=== PATIENT | male | born 1965 | race Two or more races ===

== ENCOUNTER 2020-11-01 16:39 | Inpatient (IN) | payer OTHER ==
[~2020-11-01] VITALS: Ht 180.3 cm; Wt 70.3 kg
[2020-11-01] MEDS ORDERED: Morphine Sulfate 4mg/ml Inj (IV USE ONLY) IVP ONE (17:15)
[2020-11-01] MEDS ORDERED: Omnipaque-300 100ml vial INJ PRN (17:15)
[2020-11-01] MEDS ORDERED: BACLOFEN10 MG ORAL (17:36)
[2020-11-01] MEDS ORDERED: LISINOPRIL40 MG ORAL (17:44)
[2020-11-01] MEDS ORDERED: MULTIVITAMINS1 EAC2 ORAL (17:44)
[2020-11-01] MEDS ORDERED: NORMODYNE300 MG ORAL (17:44)
[2020-11-01] MEDS ORDERED: ACETAMINOPHEN325 M1 ORAL (17:44)
[2020-11-01] MEDS ORDERED: VITAMIN D325 MC1 PO (17:44)
[2020-11-01] MEDS ORDERED: DILTIAZEM HCL60 MG PO (17:44)
[2020-11-01] MEDS ORDERED: KEPPRA1000 MG ORAL (17:44)
[2020-11-01] MEDS ORDERED: DOCUSATE SODIU100 MG ORAL (17:44)
[2020-11-01] MEDS ORDERED: CRANBERRY400 MG PO (17:44)
[2020-11-01] MEDS ORDERED: SYNTHROID150 MCG ORAL (17:44)
[2020-11-01] MEDS ORDERED: SENNA8.6 M2 PO (17:44)
--- NOTE | 2020-11-01 18:06 | Emergency Room Report ---
History of Present Illness General Chief Complaint: Abdominal Pain Source: Patient, EMS Present Illness HPI 55-year-old male presents for evaluation. Brought in by EMS from half-way facility. Complaining of abdominal pain x1 day. Patient has aphasia and is unable to provide specific details. Points to his right upper abdomen. Per nursing has been complaining of pain x1 day. No reported chest pain or shortness of breath. No nausea or vomiting. No other aggravating relieving factors. Denies any other associated symptoms Allergies: Coded Allergies: No Known Allergies (Unverified , 11/01/20) COVID-19 Screening Contact w/high risk pt: No Experienced COVID-19 symptoms?: No COVID-19 Testing performed WATER TECHNICIAN: No Patient History Past Medical History: HTN, GERD, CVA/TIA, other - aphasia Pertinent Family History: none Social History: Denies: smoking, alcohol use, drug use Immunizations: UTD Reviewed Nursing Documentation: PMH: Agreed; PSxH: Agreed Nursing Documentation-PMH Past Medical History: No History, Except For Hx Hypertension: Yes Hx Gastrointestinal Problems: Yes - aphasia, gerd Hx Neurological Problems: Yes - encephalopathy Hx Cerebrovascular Accident: Yes Hx Seizures: Yes Review of Systems All Other Systems: negative except mentioned in HPI Physical Exam Vital Signs Date Time Temp Pulse Resp B/P (MAP) Pulse Ox O2 Delivery O2 Flow Rate FiO2 11/01/20 16:45 97.2 57 16 138/90 (106) 99 Room Air Sp02 EP Interpretation: reviewed, normal General Appearance: no apparent distress, alert, GCS 15, non-toxic Head: normocephalic, atraumatic Eyes: bilateral eye normal inspection, bilateral eye PERRL ENT: hearing grossly normal, normal pharynx, no angioedema, normal voice Neck: full range of motion, supple/symm/no masses Respiratory: chest non-tender, lungs clear, normal breath sounds, speaking full sentences Cardiovascular #1: regular rate, rhythm, no edema Cardiovascular #2: 2+ carotid (R), 2+ carotid (L), 2+ radial (R), 2+ radial (L), 2+ dorsalis pedis (R), 2+ dorsalis pedis (L) Gastrointestinal: normal bowel sounds, soft, non-distended, no guarding, no rebound, tenderness - RUQ Rectal: deferred Genitourinary: normal inspection, no CVA tenderness Musculoskeletal: back normal, normal range of motion, gait/station normal, non- tender Neurologic: alert, motor strength/tone normal, oriented x3, sensory intact, responsive, speech normal Psychiatric: judgement/insight normal, memory normal, mood/affect normal, no suicidal/homicidal ideation Reflexes: 3+ bicep (R), 3+ bicep (L), 3+ tricep (R), 3+ tricep (L), 3+ knee (R), 3+ knee (L) Skin: no rash Lymphatic: no adenopathy Medical Decision Making Diagnostic Impression: Primary Impression: Abdominal pain Qualified Codes: R10.11 - Right upper quadrant pain Additional Impressions: Renal insufficiency Pancreatitis Qualified Codes: K85.90 - Acute pancreatitis without necrosis or infection, unspecified ER Course Hospital Course 55-year-old male presents with abdominal pain Differential diagnoses include: BPH, cystitis, pyelonephritis, kidney stone Clinical course Patient placed on stretcher. ekg monitor. After initial history and phys ical I ordered labs, IV fluids, UA, pain meds and CT Labs - no leukocytosis, Hb/Hct stable. BUN/Cr elevated, Lipase > 500 CT abdomen and pelvis -no acute process identified Case discussed with Dr. Nolasco and he agreed to accept the patient to his serv ice for further care and support I feel this is a highly complex case requiring extensive working including EKG/Rhythm strip, Xray/CT/US, Blood/urine lab work, repeat exams while in ED, and administration of strong opiates/narcotics for pain control, admission to hospital or close patient follow up. Diagnosis - abdominal pain, renal insufficiency, pancreatitis Patient admitted to floor in serious condition Laboratory Tests Test 11/01/20 17:20 White Blood Count 7.7 K/UL (4.8-10.8) Red Blood Count 3.60 M/UL (4.70-6.10) L Hemoglobin 10.8 G/DL (14.2-18.0) L Hematocrit 31.6 % (42.0-52.0) L Mean Corpuscular Volume 88 FL (80-99) Mean Corpuscular Hemoglobin 30.0 PG (27.0-31.0) Mean Corpuscular Hemoglobin Concent 34.1 G/DL (32.0-36.0) Red Cell Distribution Width 12.8 % (11.6-14.8) Platelet Count 200 K/UL (150-450) Mean Platelet Volume 9.9 FL (6.5-10.1) Neutrophils (%) (Auto) 67.4 % (45.0-75.0) Lymphocytes (%) (Auto) 20.5 % (20.0-45.0) Monocytes (%) (Auto) 7.4 % (1.0-10.0) Eosinophils (%) (Auto) 3.9 % (0.0-3.0) H Basophils (%) (Auto) 0.9 % (0.0-2.0) Sodium Level 132 MMOL/L (136-145) L Potassium Level 4.6 MMOL/L (3.5-5.1) Chloride Level 99 MMOL/L (98-107) Carbon Dioxide Level 24 MMOL/L (21-32) Anion Gap 9 mmol/L (5-15) Blood Urea Nitrogen 37 mg/dL (7-18) H Creatinine 2.3 MG/DL (0.55-1.30) H Estimat Glomerular Filtration Rate 29.8 mL/min (>60) Glucose Level 94 MG/DL (74-106) Calcium Level 9.3 MG/DL (8.5-10.1) Total Bilirubin 0.4 MG/DL (0.2-1.0) Aspartate Amino Transf (AST/SGOT) 38 U/L (15-37) H Alanine Aminotransferase (ALT/SGPT) 77 U/L (12-78) Alkaline Phosphatase 119 U/L (46-116) H Total Protein 7.2 G/DL (6.4-8.2) Albumin 3.8 G/DL (3.4-5.0) Globulin 3.4 g/dL Albumin/Globulin Ratio 1.1 (1.0-2.7) Lipase 516 U/L (73-393) H Last Vital Signs Date Time Temp Pulse Resp B/P (MAP) Pulse Ox O2 Delivery O2 Flow Rate FiO2 11/01/20 16:45 97.2 57 16 138/90 (106) 99 Room Air Status: improved Disposition: ADMITTED INPATIENT Condition: Serious Referrals: Elias Nolasco MD (PCP) Montana Duke MD Nov 01, 2020 18:06
[2020-11-01 18:17] LABS: BASOPHILS % (AUTO) 0.9 % (0.0-2.0); EOSINOPHILS % (AUTO) 3.9 % (0.0-3.0); HEMATOCRIT 31.6 % (42.0-52.0); HEMOGLOBIN 10.8 G/DL (14.2-18.0); LYMPHOCYTES % (AUTO) 20.5 % (20.0-45.0); MEAN CORPUSCULAR VOLUME 88 FL (80-99); MONOCYTES % (AUTO) 7.4 % (1.0-10.0); NEUTROPHILS % (AUTO) 67.4 % (45.0-75.0); PLATELET COUNT 200 K/UL (150-450); RED CELL DISTRIBUTION WIDTH 12.8 % (11.6-14.8); WHITE BLOOD COUNT 7.7 K/UL (4.8-10.8)
[2020-11-01 18:18] LABS: CALCIUM 9.3 MG/DL (8.5-10.1); CREATININE 2.3 MG/DL (0.55-1.30); POTASSIUM 4.6 MMOL/L (3.5-5.1)
[2020-11-01 18:22] LABS: ALBUMIN 3.8 G/DL (3.4-5.0); ALBUMIN/GLOBULIN RATIO 1.1 (1.0-2.7); BILIRUBIN,TOTAL 0.4 MG/DL (0.2-1.0)
--- NOTE | 2020-11-01 18:30 | NUR ---
Received patient from a skilled living facility. Non-verbal S/T aphasia but French speaking from . C/O abdominal pain that radiates lateral by pointing.He is therfore unable to give a history or provide any specific details. Unable to know if there are any other aggravating factors. No nausea or vomiting noted. NKA. 20 G Peripheral IV placed to LH. Hx of HTN, GERD, CVA/TIA Presents with R-sided weakness and needs assist with ambulation and transfer. Pain medication given and tolerated. NS currently infusing.
[2020-11-01 18:39] VITALS: BP 142/87
--- NOTE | 2020-11-01 18:49 | NUR ---
Patient is off the floor for CT
--- NOTE | 2020-11-01 19:00 | NUR ---
ED Nurse Note: patient back from ct
[2020-11-01 19:18] VITALS: BP 116/57
--- NOTE | 2020-11-01 20:11 | Diagnostic Imaging Report ---
EXAM: CT Abdomen and Pelvis With Intravenous Contrast CLINICAL HISTORY: ABD PAIN TECHNIQUE: Axial computed tomography images of the abdomen and pelvis with intravenous contrast. CTDI is 8.2 mGy and DLP is 425.7 mGy-cm. One or more of the following dose reduction techniques were used: automated exposure control, adjustment of the mA and/or kV according to patient size, use of iterative reconstruction technique. COMPARISON: None. FINDINGS: Lung bases: Minimal posterior dependent atelectasis. Pleural space: Trace amount of pleural effusion versus pleural thickening. ABDOMEN: Liver: Unremarkable. No mass. Gallbladder and bile ducts: Unremarkable. No calcified stones. No ductal dilation. Pancreas: Unremarkable. No mass. No ductal dilation. Spleen: Unremarkable. No splenomegaly. Adrenals: Unremarkable. No mass. Kidneys and ureters: Small low-attenuation structures within the right kidney, some too small to characterize and measuring less than 7 mm, largest seen within the mid lower pole measuring 1.8 x 1.7 cm compatible with a simple cyst. The smaller structures are statistically consistent with cyst. Normal left kidney. Stomach and bowel: Increased fecal debris within the colon suggestive of constipation. No obstruction. No mucosal thickening. PELVIS: Appendix: Normal appendix. Bladder: Unremarkable. No mass. Reproductive: Unremarkable as visualized. ABDOMEN and PELVIS: Intraperitoneal space: Unremarkable. No free air. No significant fluid collection. Bones/joints: Mild degenerative disease of the spine. No acute fracture. No dislocation. Soft tissues: Small bilateral fat-containing inguinal hernias. Vasculature: Unremarkable. No abdominal aortic aneurysm. Lymph nodes: Unremarkable. No enlarged lymph nodes. IMPRESSION: 1. Constipation. No acute appendicitis or bowel obstruction. 2. Nonspecific small bilateral renal cysts. If indicated, this can be further confirmed with ultrasound of the kidneys the nonacute setting.
--- NOTE | 2020-11-01 22:00 | NUR ---
HAND-OFF: Report given to Racheal LEAL .
--- NOTE | 2020-11-01 22:16 | NUR ---
ED Nurse Note: Swabs collected and sent to lab patient refused anal swab
[2020-11-01 22:33] VITALS: BP 142/87
[2020-11-02] MEDS ORDERED: D5 1/2NS 1,000 ML IV SCH
[2020-11-02 00:04] VITALS: BP 166/98
--- NOTE | 2020-11-02 02:29 | History and Physical Report ---
DATE OF ADMISSION: 11/01/2020 This is one of several admissions to [facility] of this 55-year-old patient because of patient because of acute pancreatitis. HISTORY OF PRESENT ILLNESS: The patient is a resident of an extended care facility where he has been in that facility for several years. He is known to have several chronic medical syndrome that will be detailed in the following paragraphs, but has been stable on his current medication. In fact, the patient's condition in particular motor mobility has markedly improved over the last several months. Today, he developed a sudden in onset of right upper quadrant pain. The pain was intense, did not respond to normal analgesic. He was in the extended care facility. By the same time, there was no nausea, vomiting, or diarrhea and there was no shortness of breath, chest pain, or palpitation. The pain was described as persistent pressure, not intense. He was transferred to [facility] ER. He was found to have elevated lipase to 500 and elevated BUN and creatinine. As compared to his previous admission, BUN and creatinine were normal and the patient was admitted. PAST MEDICAL HISTORY: 4 years ago, the patient had intracerebral hemorrhage, for which he underwent craniotomy and NUT CULLER shunt insertion. Two years later, he underwent cranioplasty. The patient has seizure disorder since his surgery and significant hypothyroid, high blood pressure, hyperlipidemia, hypovitaminosis D, and mood disorder. ALLERGIES: No known drug allergy. MEDICATIONS: The patient is on levetiracetam 1000 mg daily, levothyroxine 200 mcg daily, atorvastatin 10 mg daily, vitamin D 5000 units daily, aspirin 81 mg daily. FAMILY HISTORY: Noncontributory. SOCIAL HISTORY: He is single. He has 2 children that he has not seen now for several years. He was born in [place] and in [place] for many years prior to the appearance of his total disability. He worked at odd jobs. HABITS: The patient did not smoke, drink, or use illicit drugs. REVIEW OF SYSTEMS: The patient denied any chest pain, shortness of breath, palpitations, or dizziness. PULMONARY: The patient denied any cough, cough, wheezing, or expectoration. GASTROINTESTINAL: His appetite prior to this event was normal. His weight is stable. He has no dysphagia. No dyspepsia. No bowel movement disorder. GENITOURINARY: The patient denied any dysuria, frequency, incontinence, or nocturia. JOINTS: The patient denied any pain, swelling, stiffness, cold extremities, photosensitivity, dry eyes, or alopecia. CENTRAL NERVOUS SYSTEM: His sleep is of good quality. He has no numbness, tingling, seizure disorder, and has no headaches. There is a need to mention that the patient is completely aphasic and all his answers are done by head nod. The patient has limited understanding of Estonian and the use of bilingual behavioral health assistant is required. PHYSICAL EXAMINATION: VITAL SIGNS: His blood pressure is 142/87, his pulse is 80, respirations are 22, temperature 98.4. HEENT: Eyes were normal. Pupils were round, equal, and reactive to light. Sclerae was white. Conjunctiva was pink. Extraocular movements were normal. Temporal arteries were palpable bilaterally. There was some bilateral temporal wasting. Visual de león to confrontation, neglect sign could not be assessed. ENT, mucous membranes were not dehydrated. Auditory canals were clear and tympanic membranes could not be visualized. Nasal cavity was not congested. Nasal septum was intact. Soft palate was free of ulcerations. Pharynx was clear from exudate and tonsillar hypertrophy. Uvula adam to phonation. Tongue was moist, midline, and normally papillated. NECK: Supple. There was no goiter. No mass. No lymphadenopathy. There was no JVD. No bruits. Carotid upstroke was 2+. LUNGS: Clear. HEART: PMI was fifth left intercostal space in midclavicular line. There was normal S1 and normal S2. There was no murmur. No arrhythmia. No S3. No S4. No pericardial rub. ABDOMEN: Soft, nontender without organomegaly. There were no masses palpable. Normal bowel sounds without bruit. There was no guarding. No rebound tenderness. No ascites. No hernia. No CVA tenderness. Liver span was 8 cm, smooth, and nontender. EXTREMITIES: There was no cyanosis, no clubbing, and no edema. Extremities were warm. NEUROLOGICAL: Reflexes in biceps, triceps, and brachioradialis were symmetric and equal. Patellar retinaculum were symmetric and equal. Plantars were in extension on the right and flexion on the left. Cranial nerves II through XII were symmetric and equal. Cerebellar function, there was no tremor, no nystagmus, no extrapyramidal rigidity. Sensory exam to pinprick, cotton touch, position are grossly normal. Motor strength, the patient has right upper extremity and right lower extremity 2/5 against resistance. Palpation of the right upper quadrant abdomen increased tenderness, but the patient does not have rebound tenderness. LABORATORY AND DIAGNOSTIC DATA: Hemoglobin is 10.8, hematocrit 31.6 with MCV of 88, WBC of 7.7, and platelets of 200. His BUN and creatinine is 37 and 2.3 respectively. His sodium is 132, potassium 4.6, chloride 99, and CO2 is 24. His glucose is 94. His albumin is 3.8, his globulin is 3.4. His lipase is 516. His CT scan of the abdomen revealed no acute appendicitis, bowel obstruction, no evidence of cholecystitis. Nonspecific bilateral renal cysts. The rest of the abdominal content was unremarkable. PLAN: The patient will be placed NPO. IV D5W half-normal saline at 100 mL/hour, Protonix 40 mg IV push q.24h. Zofran 4 mg IV push q.4h. as needed every 4 hours. Laboratory tests that include pancreatic function, liver function will be requested. Gastroenterology, Nephrology, Hematology consultants will be requested as well. Antiseizure medication will be given IV. His blood pressure management will be done if the patient can swallow again back clonidine sublingual. His levothyroxine will be initiated IV in the a.m., however, the patient's condition improved by p.o. medication. Elias Nolasco M.D. DR: ROSA JOB#: [id number] CC:
[2020-11-02 04:29] VITALS: BP 127/78
--- NOTE | 2020-11-02 06:59 | Consultation ---
History of Present Illness General Chief Complaint: Abdominal Pain Present Illness Allergies: Coded Allergies: No Known Allergies (Unverified , 11/01/20) Medication History Scheduled Baclofen* (Baclofen*), 5 MG ORAL DAILY, (Reported) Cholecalciferol (Vitamin D3) (Vitamin D3*), 125 MCG PO DAILY, (Reported) Diltiazem Hcl (Diltiazem Hcl), 60 MG PO DAILY, (Reported) Docusate Sodium* (Docusate Sodium*), 100 MG ORAL DAILY, (Reported) Labetalol HCl (Labetalol HCl), 300 MG ORAL EVERY 12 HOURS, (Reported) Levetiracetam (Keppra), 1,000 MG ORAL DAILY, (Reported) Levothyroxine Sodium* (Synthroid*), 200 MCG ORAL DAILY, (Reported) Lisinopril* (Lisinopril*), 40 MG ORAL DAILY, (Reported) Multivitamins* (Multivitamins*), 1 TAB ORAL DAILY, (Reported) Scheduled PRN Acetaminophen* (Acetaminophen 325MG Tablet*), 650 MG ORAL Q4H PRN for Pain Scale (3-5), (Reported) Sennosides (Senna), 8.6 MG PO DAILY PRN for Constipation, (Reported) Miscellaneous Medications Cranberry (Cranberry), 400 MG PO, (Reported) Patient History Healthcare decision maker Resuscitation status Advanced Directive on File Physical Exam Last 24 Hour Vital Signs Date Time Temp Pulse Resp B/P (MAP) Pulse Ox O2 Delivery O2 Flow Rate FiO2 11/02/20 04:29 97.3 58 17 127/78 (94) 96 11/02/20 00:16 166/98 11/02/20 00:04 97.9 59 17 166/98 (120) 98 11/01/20 23:24 Room Air 11/01/20 22:33 98.4 80 22 142/87 97 Room Air 11/01/20 22:04 86 22 96 Room Air 11/01/20 18:39 98.4 85 17 142/87 95 Room Air 11/01/20 18:39 85 17 Room Air 11/01/20 16:45 97.2 57 16 138/90 (106) 99 Room Air Intake and Output 11/01/20 11/02/20 19:00 07:00 Intake Total 200 ml 600 ml Balance 200 ml 600 ml Intake IV Total 200 ml 600 ml Laboratory Tests Test 11/01/20 17:20 White Blood Count 7.7 K/UL (4.8-10.8) Red Blood Count 3.60 M/UL (4.70-6.10) L Hemoglobin 10.8 G/DL (14.2-18.0) L Hematocrit 31.6 % (42.0-52.0) L Mean Corpuscular Volume 88 FL (80-99) Mean Corpuscular Hemoglobin 30.0 PG (27.0-31.0) Mean Corpuscular Hemoglobin Concent 34.1 G/DL (32.0-36.0) Red Cell Distribution Width 12.8 % (11.6-14.8) Platelet Count 200 K/UL (150-450) Mean Platelet Volume 9.9 FL (6.5-10.1) Neutrophils (%) (Auto) 67.4 % (45.0-75.0) Lymphocytes (%) (Auto) 20.5 % (20.0-45.0) Monocytes (%) (Auto) 7.4 % (1.0-10.0) Eosinophils (%) (Auto) 3.9 % (0.0-3.0) H Basophils (%) (Auto) 0.9 % (0.0-2.0) Sodium Level 132 MMOL/L (136-145) L Potassium Level 4.6 MMOL/L (3.5-5.1) Chloride Level 99 MMOL/L (98-107) Carbon Dioxide Level 24 MMOL/L (21-32) Anion Gap 9 mmol/L (5-15) Blood Urea Nitrogen 37 mg/dL (7-18) H Creatinine 2.3 MG/DL (0.55-1.30) H Estimat Glomerular Filtration Rate 29.8 mL/min (>60) Glucose Level 94 MG/DL (74-106) Calcium Level 9.3 MG/DL (8.5-10.1) Total Bilirubin 0.4 MG/DL (0.2-1.0) Aspartate Amino Transf (AST/SGOT) 38 U/L (15-37) H Alanine Aminotransferase (ALT/SGPT) 77 U/L (12-78) Alkaline Phosphatase 119 U/L (46-116) H Total Protein 7.2 G/DL (6.4-8.2) Albumin 3.8 G/DL (3.4-5.0) Globulin 3.4 g/dL Albumin/Globulin Ratio 1.1 (1.0-2.7) Lipase 516 U/L (73-393) H Height (Feet): 5 Height (Inches): 11.00 Weight (Pounds): 155 Medications Current Medications Medications (Trade) Dose Ordered Sig/Ann Route PRN Reason Start Time Stop Time Status Last Admin Dose Admin Clonidine HCl (Catapres Tab) 0.1 mg Q4H PRN SL SBP >160 11/02/20 00:00 01/31/21 00:00 11/02/20 00:16 Dextrose/Sodium Chloride 1,000 ml @ 100 mls/hr Q10H IV 11/02/20 00:00 12/02/20 00:00 11/02/20 00:15 Hydromorphone HCl (Dilaudid) 1 mg Q6H PRN IVP Severe Pain (Pain Scale 7-10) 11/02/20 00:00 11/09/20 00:00 Iohexol (OMNIPAQUE-300 100ml) 100 ml NOW PRN INJ Radiology Procedure 11/01/20 17:15 11/03/20 17:14 Levetiracetam 100 ml @ 400 mls/hr Q24H IVPB 11/02/20 09:00 01/31/21 08:59 Ondansetron HCl (Zofran) 4 mg Q4H PRN IVP Nausea & Vomiting 11/02/20 00:00 12/02/20 00:00 Pantoprazole (Protonix) 40 mg DAILY IVP 11/02/20 09:00 12/02/20 08:59 Assessment/Plan Assessment/Plan: Hematology Consultation REQ MD: Elias Nolasco Chief Complaint: Abdominal Pain RFC: Anemia eval ID 55-year-old male presents for evaluation. Brought in by EMS from retirement facility. Complaining of abdominal pain x1 day. Patient has aphasia and is unable to provide specific details. Points to his right upper abdomen. Per nursing has been complaining of pain x1 day. No reported chest pain or shortness of breath. No nausea or vomiting. No other aggravating relieving factors. Denies any other associated symptoms, currently mumbling difficult to obtain hx from him Coded Allergies: No Known Allergies (Unverified , 11/01/20) COVID-19 Screening Contact w/high risk pt: No Experienced COVID-19 symptoms?: No COVID-19 Testing performed NEONATAL CRITICAL CARE NURSE: No Patient History Past Medical History: HTN, GERD, CVA/TIA, other - aphasia Pertinent Family History: none Social History: Denies: smoking, alcohol use, drug use Immunizations: UTD Reviewed Nursing Documentation: PMH: Agreed; PSxH: Agreed Nursing Documentation-PMH Past Medical History: No History, Except For Hx Hypertension: Yes Hx Gastrointestinal Problems: Yes - aphasia, gerd Hx Neurological Problems: Yes - encephalopathy Hx Cerebrovascular Accident: Yes Hx Seizures: Yes Review of Systems All Other Systems: negative except mentioned in HPI PE Sp02 EP Interpretation: reviewed, normal General Appearance: no apparent distress, alert, GCS 15, non-toxic Head: normocephalic, atraumatic Eyes: bilateral eye normal inspection, bilateral eye PERRL ENT: hearing grossly normal, normal pharynx, no angioedema Neck: full range of motion, supple/symm/no masses Respiratory: chest non-tender, lungs clear, normal breath sounds Cardiovascular: regular rate, rhythm, no edema Gastrointestinal: normal bowel sounds, soft, non-distended Rectal: deferred Genitourinary: normal inspection, no CVA tenderness Musculoskeletal: back normal Neurologic: alert, motor strength/tone normal Lymphatic: no adenopathy Labs: reviewed Imaging: reviewed Assessment / Recs # Anemia of chronic disease --> hgb 10.8 --> no hemolysis is noted --> anemia panel order as needed --> smear has been reviewed # Abdominal pain r/o pancreatitis --> IVfs --> per gi, surg --> imaging noted -> lipase is high # Renal insufficiency --> ivfs --> per renal # Pancreatitis -> supportive care # Dvt ppx lovenox sq Appreciate consultation and dw Zev Stark MD Nov 02, 2020 06:59
--- NOTE | 2020-11-02 07:05 | NUR ---
NURSE HAND-OFF: Important Events on Shift:[] Patient Status: []Bedrest Diet: []NPO Pending Orders: [] Pending Results/Labs:[] Pending MD notification:[] Latest Vital Signs: Temperature 97.3 , Pulse 58 , B/P 127 /78 , Respiratory Rate 17 , O2 SAT 96 , Room Air, O2 Flow Rate . Vital Sign Comment: [] Latest Foley Fall Score: 55 Fall Risk: High Risk Safety Measures: Call light Within Reach, Bed Alarm Zone 2, Side Rails Side Rails x2, Bed position Low and Locked. Fall Precautions: Yellow Socks Patient Fall Education Report given to [].
--- NOTE | 2020-11-02 07:15 | NUR ---
NURSE NOTES: Received report from Nayely LEAL. Patient is awake, A&O x4, no acute distress. Patient is nonverbal but will nod and use hand gestures. IVF running per order. NPO. On room air, no Sob. Seizure precautions, side rails padded x2. Bed in lowest position, side rails up, call light in reach. Updated on care plan.
--- NOTE | 2020-11-02 07:15 | NUR ---
NURSE HAND-OFF: Important Events on Shift:[started regular diet] Patient Status: [stable] Diet: [regular] Pending Orders: [] Pending Results/Labs:[] Pending MD notification:[] Latest Vital Signs: Temperature 97.3 , Pulse 61 , B/P 140 /78 , Respiratory Rate 17 , O2 SAT 97 , Room Air, O2 Flow Rate . Vital Sign Comment: [] Latest Foley Fall Score: 55 Fall Risk: High Risk Safety Measures: Call light Within Reach, Bed Alarm Zone 1, Side Rails Side Rails x3, Bed position Low and Locked. Fall Precautions: Yellow Socks Patient Fall Education Report given to [Nayely RN].
[2020-11-02 07:29] LABS: BASOPHILS % (AUTO) 0.8 % (0.0-2.0); EOSINOPHILS % (AUTO) 4.8 % (0.0-3.0); HEMATOCRIT 32.4 % (42.0-52.0); HEMOGLOBIN 10.9 G/DL (14.2-18.0); LYMPHOCYTES % (AUTO) 20.9 % (20.0-45.0); MEAN CORPUSCULAR VOLUME 89 FL (80-99); MONOCYTES % (AUTO) 8.4 % (1.0-10.0); NEUTROPHILS % (AUTO) 65.2 % (45.0-75.0); PLATELET COUNT 169 K/UL (150-450); RED BLOOD COUNT 3.62 M/UL (4.70-6.10); RED CELL DISTRIBUTION WIDTH 12.8 % (11.6-14.8); WHITE BLOOD COUNT 5.8 K/UL (4.8-10.8)
[2020-11-02 07:51] LABS: ALANINE AMINOTRANSFERASE 61 U/L (12-78); ALBUMIN 3.2 G/DL (3.4-5.0); ALKALINE PHOSPHATASE 101 U/L (46-116); AMYLASE 98 U/L (25-115); ANION GAP 7 mmol/L (5-15); ASPARTATE AMINO TRANSFERASE 28 U/L (15-37); BILIRUBIN,DIRECT < 0.1 MG/DL (0.0-0.3); BILIRUBIN,TOTAL 0.4 MG/DL (0.2-1.0); BLOOD UREA NITROGEN 32 mg/dL (7-18); CALCIUM 8.8 MG/DL (8.5-10.1); CARBON DIOXIDE 25 MMOL/L (21-32); CHLORIDE 104 MMOL/L (98-107); CHOLESTEROL 111 MG/DL (< 200); CREATININE 2.2 MG/DL (0.55-1.30); HDL CHOLESTEROL 44 MG/DL (40-60); POTASSIUM 4.3 MMOL/L (3.5-5.1); SODIUM 136 MMOL/L (136-145); TRIGLYCERIDES 69 MG/DL (30-150)
[2020-11-02 08:00] VITALS: BP 137/78
--- NOTE | 2020-11-02 08:06 | General Progress Note ---
Subjective ROS Limited/Unobtainable: Yes Allergies: Coded Allergies: No Known Allergies (Unverified , 11/01/20) Objective Last 24 Hour Vital Signs Date Time Temp Pulse Resp B/P (MAP) Pulse Ox O2 Delivery O2 Flow Rate FiO2 11/02/20 04:29 97.3 58 17 127/78 (94) 96 11/02/20 00:16 166/98 11/02/20 00:04 97.9 59 17 166/98 (120) 98 11/01/20 23:24 Room Air 11/01/20 22:33 98.4 80 22 142/87 97 Room Air 11/01/20 22:04 86 22 96 Room Air 11/01/20 18:39 98.4 85 17 142/87 95 Room Air 11/01/20 18:39 85 17 Room Air 11/01/20 16:45 97.2 57 16 138/90 (106) 99 Room Air Intake and Output 11/01/20 11/02/20 19:00 07:00 Intake Total 200 ml 700 ml Balance 200 ml 700 ml Intake IV Total 200 ml 700 ml # Voids 2 Laboratory Tests 11/01/20 17:20: White Blood Count 7.7, Red Blood Count 3.60L, Hemoglobin 10.8L, Hematocrit 31.6L , Mean Corpuscular Volume 88, Mean Corpuscular Hemoglobin 30.0, Mean Corpuscular Hemoglobin Concent 34.1, Red Cell Distribution Width 12.8, Platelet Count 200, Mean Platelet Volume 9.9, Neutrophils (%) (Auto) 67.4, Lymphocytes (%) (Auto) 20.5, Monocytes (%) (Auto) 7.4, Eosinophils (%) (Auto) 3.9H, Basophils (%) (Auto) 0.9, Sodium Level 132L, Potassium Level 4.6, Chloride Level 99, Carbon Dioxide Level 24, Anion Gap 9, Blood Urea Nitrogen 37H, Creatinine 2.3H, Estimat Glomerular Filtration Rate 29.8, Glucose Level 94, Calcium Level 9.3, Total Bilirubin 0.4, Aspartate Amino Transf (AST/SGOT) 38H, Alanine Aminotransferase (ALT/SGPT) 77, Alkaline Phosphatase 119H, Total Protein 7.2, Albumin 3.8, Globulin 3.4, Albumin/Globulin Ratio 1.1, Lipase 516H 11/02/20 06:00: White Blood Count 5.8, Red Blood Count 3.62L, Hemoglobin 10.9L, Hematocrit 32.4L , Mean Corpuscular Volume 89, Mean Corpuscular Hemoglobin 30.1, Mean Corpuscular Hemoglobin Concent 33.7, Red Cell Distribution Width 12.8, Platelet Count 169, Mean Platelet Volume 8.1, Neutrophils (%) (Auto) 65.2, Lymphocytes (%) (Auto) 20.9, Monocytes (%) (Auto) 8.4, Eosinophils (%) (Auto) 4.8H, Basophils (%) (Auto) 0.8, Sodium Level 136, Potassium Level 4.3, Chloride Level 104, Carbon Di oxide Level 25, Anion Gap 7, Blood Urea Nitrogen 32H, Creatinine 2.2H, Estimat Glomerular Filtration Rate 31.3, Glucose Level 127H, Calcium Level 8.8, Total Bilirubin 0.4, Aspartate Amino Transf (AST/SGOT) 28, Alanine Aminotransferase (ALT/SGPT) 61, Alkaline Phosphatase 101, Total Protein 6.1L, Albumin 3.2L, Lipase 218, Erythrocyte Sedimentation Rate [Pending], Direct Bilirubin < 0.1, C- Reactive Protein, Quantitative < 0.4, Triglycerides Level 69, Cholesterol Level 111, LDL Cholesterol 61, HDL Cholesterol 44, Cholesterol/HDL Ratio 2.5L, Amylase Level 98, Carcinoembryonic Antigen [Pending], Vitamin D 25-Hydroxy [Pending], 25-Hydroxy Vitamin D2 [Pending], 25-Hydroxy Vitamin D3 [Pending] Height (Feet): 5 Height (Inches): 11.00 Weight (Pounds): 155 General Appearance: no apparent distress EENT: normal ENT inspection Neck: supple Cardiovascular: normal rate Respiratory/Chest: lungs clear Abdomen: normal bowel sounds, non tender, soft Extremities: non-tender Assessment/Plan Assessment/Plan: abd pain anemia RI constipation doubt pancreatitis RI anemia work up bowel regimen resume diet repeat labs will need EGD and colonoscopy most likely as out patient Destin Orellana MD Nov 02, 2020 08:06
[2020-11-02] MEDS ORDERED: Bisacodyl EC 5mg tab ORAL SCH (08:15)
[2020-11-02] MEDS: Pantoprazole Inj IVP SCH (08:28)
[2020-11-02] MEDS: levETIRAcetam 1,000mg/NS100ml 100 ML IVPB SCH (08:29)
[2020-11-02] MEDS: Enoxaparin 40mg Inj SUBQ SCH (08:31)
--- NOTE | 2020-11-02 08:43 | NUR ---
CASE MANAGEMENT:REVIEW 55 YR OLD MALE BIBA FROM [facility]; ABDOMINAL PAIN SI: PANCREATITIS. RENAL INSUFF 97.2 57 16 138/90 99% ON RA LIPASE+516 BUN+37 CR+2.3 IS; IV PEPCID IV MORPHINE 1L NS BOLUS CT ABD/PELVIS : TO MED/SURG DCP: FROM SNF
[2020-11-02] MEDS ORDERED: Docusate 100mg cap ORAL SCH (09:00)
--- NOTE | 2020-11-02 11:41 | Consultation ---
Consult Note Consult Note I am asked to evaluate the patient at the request of Dr. Nolasco for renal failure Patient seen and examined Data reviewed ER note: 55-year-old male presents for evaluation. Brought in by EMS from residential facility. Complaining of abdominal pain x1 day. Patient has aphasia and is unable to provide specific details. Points to his right upper abdomen. Per nursing has been complaining of pain x1 day. No reported chest pain or shortness of breath. No nausea or vomiting. No other aggravating relieving factors. Denies any other associated symptoms Allergies: No Known Allergies (Unverified , 11/01/20) COVID-19 Screening Contact w/high risk pt: No Experienced COVID-19 symptoms?: No COVID-19 Testing performed ASSISTANT IN NURSING: No Past Medical History: HTN, GERD, CVA/TIA, other - aphasia Past Medical History: No History, Except For Hx Hypertension: Yes Hx Gastrointestinal Problems: Yes - aphasia, gerd Hx Neurological Problems: Yes - encephalopathy Hx Cerebrovascular Accident: Yes Hx Seizures: Yes Vital Signs Date Time Temp Pulse Resp B/P (MAP) Pulse Ox O2 Delivery O2 Flow Rate FiO2 11/01/20 16:45 97.2 57 16 138/90 (106) 99 Room Air Assessment/Plan Renal failure, most likely acute on chronic Partly dehydration Abdominal pain, questionable pancreatitis Anemia History of hypertension History of CVA/TIA, aphasia Check urine analysis Slow hydration Avoid nephrotoxic's Monitor renal parameters Anemia work-up Per orders Jeremy Webb MD Nov 02, 2020 11:41
[2020-11-02 12:00] VITALS: BP 136/91
[2020-11-02] MEDS: D5 1/2NS 1,000 ML IV SCH ×2 (12:00→12:43)
[2020-11-02 12:26] LABS: APPEARANCE,URINE CLEAR; BILIRUBIN, URINE NEGATIVE (NEGATIVE); COLOR,URINE PALE YELLOW; GLUCOSE, URINE (UA) NEGATIVE (NEGATIVE); KETONES,URINE NEGATIVE (NEGATIVE); LEUKOCYTE ESTERASE ,URINE NEGATIVE (NEGATIVE); NITRITE,URINE NEGATIVE (NEGATIVE); PH,URINE 5 (4.5-8.0); PROTEIN,URINE 2+ (NEGATIVE); UROBILINOGEN,URINE NORMAL MG/DL (0.0-1.0)
[2020-11-02] MEDS: Docusate 100mg cap ORAL SCH ×2 (12:44→17:03)
[2020-11-02] MEDS: HYDROmorphone 1mg/ml Carpuject IVP PRN (14:07)
--- NOTE | 2020-11-02 14:28 | Consultation ---
History of Present Illness General Date patient seen: Nov 02, 2020 Reason for Hospitalization: Abdominal Pain Present Illness HPI 55-year-old male presents for evaluation. [facility] Complaining of abdominal pain x1 day. Patient has aphasia and is unable to provide specific details. Points to his right upper abdomen. Per nursing has been complaining of pain x1 day. No reported chest pain or shortness of breath. No nausea or vomiting. No other aggravating relieving factors. Denies any other associated symptoms, currently mumbling difficult to obtain hx from him surgery called to evaluate for abd pain Allergies: Coded Allergies: No Known Allergies (Unverified , 11/01/20) COVID-19 Screening Contact w/high risk pt: No Experienced COVID-19 symptoms?: No Medication History Scheduled Baclofen* (Baclofen*), 5 MG ORAL DAILY, (Reported) Cholecalciferol (Vitamin D3) (Vitamin D3*), 125 MCG PO DAILY, (Reported) Diltiazem Hcl (Diltiazem Hcl), 60 MG PO DAILY, (Reported) Docusate Sodium* (Docusate Sodium*), 100 MG ORAL DAILY, (Reported) Labetalol HCl (Labetalol HCl), 300 MG ORAL EVERY 12 HOURS, (Reported) Levetiracetam (Keppra), 1,000 MG ORAL DAILY, (Reported) Levothyroxine Sodium* (Synthroid*), 200 MCG ORAL DAILY, (Reported) Lisinopril* (Lisinopril*), 40 MG ORAL DAILY, (Reported) Multivitamins* (Multivitamins*), 1 TAB ORAL DAILY, (Reported) Scheduled PRN Acetaminophen* (Acetaminophen 325MG Tablet*), 650 MG ORAL Q4H PRN for Pain Scale (3-5), (Reported) Sennosides (Senna), 8.6 MG PO DAILY PRN for Constipation, (Reported) Miscellaneous Medications Cranberry (Cranberry), 400 MG PO, (Reported) Patient History Limited by: medical condition History Provided By: Medical Record, PMD Healthcare decision maker Resuscitation status Advanced Directive on File Past Medical/Surgical History Past Medical/Surgical History: (1) Renal insufficiency (2) Pancreatitis (3) Abdominal pain Review of Systems Review of Symptoms General ROS: no weight loss or fever Psychological ROS: no depression or mood changes, no memory loss Ophthalmic ROS: no visual changes or eye irritation ENT ROS: no nasal congestion, hearing loss, dizziness Allergy and Immunology ROS: no allergic symptoms or urticaria Hematological and Lymphatic ROS: no swollen glands, unusual bleeding or bruising Endocrine ROS: no polyuria, polydipsia, weight changes, temperature intolerance Respiratory ROS: no cough, shortness of breath, or wheezing Cardiovascular ROS: no chest pain or dyspnea on exertion Gastrointestinal ROS: + abdominal pain, bright red blood in stool. Musculoskeletal ROS: no myalgias or arthralgias Neurological ROS: no TIA or stroke symptoms Dermatological ROS: no new or changing skin lesions, rashes or pruritis Physical Exam Physical Exam General appearance: alert, cooperative, no distress, appears stated age Head: Normocephalic, without obvious abnormality, atraumatic Eyes: conjunctivae/corneas clear. PERRL, EOM's intact. Fundi benign Throat: Lips, mucosa, and tongue normal. Teeth and gums normal Neck: supple, symmetrical, trachea midline, no adenopathy, thyroid: not enlarged, symmetric, no tenderness/mass/nodules, no carotid bruit and no JVD Lungs: clear to auscultation bilaterally Heart: regular rate and rhythm, S1, S2 normal, no murmur, click, rub or gallop Abdomen: soft, non-tender. Bowel sounds normal. No masses, no organomegaly Extremities: extremities normal, atraumatic, no cyanosis or edema Pulses: 2+ and symmetric Skin: Skin color, texture, turgor normal. No rashes or lesions Neurologic: Grossly normal Last 24 Hour Vital Signs Date Time Temp Pulse Resp B/P (MAP) Pulse Ox O2 Delivery O2 Flow Rate FiO2 11/02/20 12:00 97.4 60 17 136/91 (106) 99 11/02/20 09:00 Room Air 11/02/20 08:00 97.3 69 17 137/78 (97) 99 11/02/20 04:29 97.3 58 17 127/78 (94) 96 11/02/20 00:16 166/98 11/02/20 00:04 97.9 59 17 166/98 (120) 98 11/01/20 23:24 Room Air 11/01/20 22:33 98.4 80 22 142/87 97 Room Air 11/01/20 22:04 86 22 96 Room Air 11/01/20 18:39 98.4 85 17 142/87 95 Room Air 11/01/20 18:39 85 17 Room Air 11/01/20 16:45 97.2 57 16 138/90 (106) 99 Room Air Intake and Output 11/01/20 11/02/20 19:00 07:00 Intake Total 200 ml 700 ml Balance 200 ml 700 ml IV Total 200 ml 700 ml # Voids 2 Laboratory Tests Test 11/01/20 17:20 11/02/20 06:00 11/02/20 12:15 White Blood Count 7.7 K/UL (4.8-10.8) 5.8 K/UL (4.8-10.8) Red Blood Count 3.60 M/UL (4.70-6.10) L 3.62 M/UL (4.70-6.10) L Hemoglobin 10.8 G/DL (14.2-18.0) L 10.9 G/DL (14.2-18.0) L Hematocrit 31.6 % (42.0-52.0) L 32.4 % (42.0-52.0) L Mean Corpuscular Volume 88 FL (80-99) 89 FL (80-99) Mean Corpuscular Hemoglobin 30.0 PG (27.0-31.0) 30.1 PG (27.0-31.0) Mean Corpuscular Hemoglobin Concent 34.1 G/DL (32.0-36.0) 33.7 G/DL (32.0-36.0) Red Cell Distribution Width 12.8 % (11.6-14.8) 12.8 % (11.6-14.8) Platelet Count 200 K/UL (150-450) 169 K/UL (150-450) Mean Platelet Volume 9.9 FL (6.5-10.1) 8.1 FL (6.5-10.1) Neutrophils (%) (Auto) 67.4 % (45.0-75.0) 65.2 % (45.0-75.0) Lymphocytes (%) (Auto) 20.5 % (20.0-45.0) 20.9 % (20.0-45.0) Monocytes (%) (Auto) 7.4 % (1.0-10.0) 8.4 % (1.0-10.0) Eosinophils (%) (Auto) 3.9 % (0.0-3.0) H 4.8 % (0.0-3.0) H Basophils (%) (Auto) 0.9 % (0.0-2.0) 0.8 % (0.0-2.0) Sodium Level 132 MMOL/L (136-145) L 136 MMOL/L (136-145) Potassium Level 4.6 MMOL/L (3.5-5.1) 4.3 MMOL/L (3.5-5.1) Chloride Level 99 MMOL/L (98-107) 104 MMOL/L (98-107) Carbon Dioxide Level 24 MMOL/L (21-32) 25 MMOL/L (21-32) Anion Gap 9 mmol/L (5-15) 7 mmol/L (5-15) Blood Urea Nitrogen 37 mg/dL (7-18) H 32 mg/dL (7-18) H Creatinine 2.3 MG/DL (0.55-1.30) H 2.2 MG/DL (0.55-1.30) H Estimat Glomerular Filtration Rate 29.8 mL/min (>60) 31.3 mL/min (>60) Glucose Level 94 MG/DL (74-106) 127 MG/DL (74-106) H Calcium Level 9.3 MG/DL (8.5-10.1) 8.8 MG/DL (8.5-10.1) Total Bilirubin 0.4 MG/DL (0.2-1.0) 0.4 MG/DL (0.2-1.0) Aspartate Amino Transf (AST/SGOT) 38 U/L (15-37) H 28 U/L (15-37) Alanine Aminotransferase (ALT/SGPT) 77 U/L (12-78) 61 U/L (12-78) Alkaline Phosphatase 119 U/L (46-116) H 101 U/L (46-116) Total Protein 7.2 G/DL (6.4-8.2) 6.1 G/DL (6.4-8.2) L Albumin 3.8 G/DL (3.4-5.0) 3.2 G/DL (3.4-5.0) L Globulin 3.4 g/dL Albumin/Globulin Ratio 1.1 (1.0-2.7) Lipase 516 U/L (73-393) H 218 U/L (73-393) Erythrocyte Sedimentation Rate 5 MM/HR (0-20) Direct Bilirubin < 0.1 MG/DL (0.0-0.3) C-Reactive Protein, Quantitative < 0.4 mg/dL (0.00-0.90) Triglycerides Level 69 MG/DL (30-150) Cholesterol Level 111 MG/DL (< 200) LDL Cholesterol 61 mg/dL (<100) HDL Cholesterol 44 MG/DL (40-60) Cholesterol/HDL Ratio 2.5 (3.3-4.4) L Amylase Level 98 U/L (25-115) Carcinoembryonic Antigen Pending Vitamin D 25-Hydroxy Pending 25-Hydroxy Vitamin D2 Pending 25-Hydroxy Vitamin D3 Pending Urine Color Pale yellow Urine Appearance Clear Urine pH 5 (4.5-8.0) Urine Specific [place] 1.015 (1.005-1.035) Urine Protein 2+ (NEGATIVE) H Urine Glucose (UA) Negative (NEGATIVE) Urine Ketones Negative (NEGATIVE) Urine Blood 1+ (NEGATIVE) H Urine Nitrite Negative (NEGATIVE) Urine Bilirubin Negative (NEGATIVE) Urine Urobilinogen Normal MG/DL (0.0-1.0) Urine Leukocyte Esterase Negative (NEGATIVE) Urine RBC 0-2 /HPF (0 - 0) H Urine WBC 0 /HPF (0 - 0) Urine Squamous Epithelial Cells Occasional /LPF Urine Bacteria Occasional /HPF (NONE) Urine Random Sodium 82 mmol/L (20-110) Height (Feet): 5 Height (Inches): 11.00 Weight (Pounds): 155 Medications Current Medications Medications (Trade) Dose Ordered Sig/Ann Route PRN Reason Start Time Stop Time Status Last Admin Dose Admin Dextrose/Sodium Chloride 1,000 ml @ 75 mls/hr [id number] IV 11/02/20 12:00 12/02/20 11:59 Docusate Sodium (Colace) 100 mg TID ORAL 11/02/20 13:00 12/02/20 08:59 11/02/20 12:44 Enoxaparin Sodium (Lovenox) 40 mg DAILY SUBQ 11/02/20 09:00 01/31/21 08:59 11/02/20 08:31 Hydromorphone HCl (Dilaudid) 1 mg Q6H PRN IVP Severe Pain (Pain Scale 7-10) 11/02/20 00:00 11/09/20 00:00 11/02/20 14:07 Iohexol (OMNIPAQUE-300 100ml) 100 ml NOW PRN INJ Radiology Procedure 11/01/20 17:15 11/03/20 17:14 Levetiracetam 100 ml @ 400 mls/hr Q24H IVPB 11/02/20 09:00 01/31/21 08:59 11/02/20 08:29 Ondansetron HCl (Zofran) 4 mg Q4H PRN IVP Nausea & Vomiting 11/02/20 00:00 12/02/20 00:00 Pantoprazole (Protonix) 40 mg DAILY IVP 11/02/20 09:00 12/02/20 08:59 11/02/20 08:28 Polyethylene Glycol (Miralax) 17 gm BEDTIME ORAL 11/02/20 21:00 12/02/20 20:59 Assessment/Plan Problem List: (1) Renal insufficiency ICD Codes: N28.9 - Disorder of kidney and ureter, unspecified SNOMED: 527932694, 820451952 (2) Pancreatitis ICD Codes: K85.90 - Acute pancreatitis without necrosis or infection, unspecified SNOMED: 96721794 Qualifiers: Qualified Codes: K85.90 - Acute pancreatitis without necrosis or infection, unspecified (3) Abdominal pain Assessment & Plan: 55M abd pain labs noted ct reviewed exam benign no acute surgical intervention bowel regimen gi input will follow with exam and recs thank you ABDOMEN: Liver: Unremarkable. No mass. Gallbladder and bile ducts: Unremarkable. No calcified stones. No ductal dilation. Pancreas: Unremarkable. No mass. No ductal dilation. Spleen: Unremarkable. No splenomegaly. Adrenals: Unremarkable. No mass. Kidneys and ureters: Small low-attenuation structures within the right kidney, some too small to characterize and measuring less than 7 mm, largest seen within the mid lower pole measuring 1.8 x 1.7 cm compatible with a simple cyst. The smaller structures are statistically consistent with cyst. Normal left kidney. Stomach and bowel: Increased fecal debris within the colon suggestive of constipation. No obstruction. No mucosal thickening. PELVIS: Appendix: Normal appendix. Bladder: Unremarkable. No mass. Reproductive: Unremarkable as visualized. ABDOMEN and PELVIS: Intraperitoneal space: Unremarkable. No free air. No significant fluid collection. Bones/joints: Mild degenerative disease of the spine. No acute fracture. No dislocation. Soft tissues: Small bilateral fat-containing inguinal hernias. Vasculature: Unremarkable. No abdominal aortic aneurysm. Lymph nodes: Unremarkable. No enlarged lymph nodes. IMPRESSION: 1. Constipation. No acute appendicitis or bowel obstruction. 2. Nonspecific small bilateral renal cysts. If indicated, this can be further confirmed with ultrasound of the kidneys the nonacute setting. ICD Codes: R10.9 - Unspecified abdominal pain SNOMED: 87230469, [id number] Qualifiers: Qualified Codes: R10.11 - Right upper quadrant pain Sandro Sunshine Nov 02, 2020 14:28
[2020-11-02 16:02] VITALS: BP 140/78
--- NOTE | 2020-11-02 16:04 | NUR ---
INSURANCE REVIEWS/CLINICALS [facility] DEPT PH#[phone] FAX#[phone]
[2020-11-02] MEDS ORDERED: ATORVASTATIN CA40 MG ORAL (16:42)
[2020-11-02] MEDS ORDERED: ATIVAN2 MG/1 ML IV (16:42)
[2020-11-02] MEDS ORDERED: CARAFATE1 G1 ORAL (16:42)
[2020-11-02] MEDS ORDERED: MILK OF MA2400 MG/10 ORAL (16:42)
[2020-11-02] MEDS ORDERED: CRANBERRY450 M5 PO (16:42)
--- NOTE | 2020-11-02 19:25 | General Progress Note ---
Subjective Constitutional: Reports: no symptoms HEENT: Reports: no symptoms Cardiovascular: Reports: no symptoms Respiratory: Reports: no symptoms Gastrointestinal/Abdominal: Reports: no symptoms Genitourinary: Reports: no symptoms Neurologic/Psychiatric: Reports: no symptoms Endocrine: Reports: no symptoms Hematologic/Lymphatic: Reports: no symptoms Allergies: Coded Allergies: No Known Allergies (Unverified , 11/01/20) Objective Last 24 Hour Vital Signs Date Time Temp Pulse Resp B/P (MAP) Pulse Ox O2 Delivery O2 Flow Rate FiO2 11/02/20 16:02 97.3 61 17 140/78 (98) 97 11/02/20 12:00 97.4 60 17 136/91 (106) 99 11/02/20 09:00 Room Air 11/02/20 08:00 97.3 69 17 137/78 (97) 99 11/02/20 04:29 97.3 58 17 127/78 (94) 96 11/02/20 00:16 166/98 11/02/20 00:04 97.9 59 17 166/98 (120) 98 11/01/20 23:24 Room Air 11/01/20 22:33 98.4 80 22 142/87 97 Room Air 11/01/20 22:04 86 22 96 Room Air Intake and Output 11/01/20 11/02/20 19:00 07:00 Intake Total 200 ml 700 ml Balance 200 ml 700 ml IV Total 200 ml 700 ml # Voids 2 Laboratory Tests 11/02/20 06:00: White Blood Count 5.8, Red Blood Count 3.62L, Hemoglobin 10.9L, Hematocrit 32.4L , Mean Corpuscular Volume 89, Mean Corpuscular Hemoglobin 30.1, Mean Corpuscular Hemoglobin Concent 33.7, Red Cell Distribution Width 12.8, Platelet Count 169, Mean Platelet Volume 8.1, Neutrophils (%) (Auto) 65.2, Lymphocytes (%) (Auto) 20.9, Monocytes (%) (Auto) 8.4, Eosinophils (%) (Auto) 4.8H, Basophils (%) (Auto) 0.8, Erythrocyte Sedimentation Rate 5, Sodium Level 136, Potassium Level 4.3, Chloride Level 104, Carbon Dioxide Level 25, Anion Gap 7, Blood Urea Nitrogen 32H, Creatinine 2.2H, Estimat Glomerular Filtration Rate 31.3, Glucose Level 127H, Calcium Level 8.8, Total Bilirubin 0.4, Direct Bilirubin < 0.1, A spartate Amino Transf (AST/SGOT) 28, Alanine Aminotransferase (ALT/SGPT) 61, Alkaline Phosphatase 101, C-Reactive Protein, Quantitative < 0.4, Total Protein 6.1L, Albumin 3.2L, Triglycerides Level 69, Cholesterol Level 111, LDL Cholesterol 61, HDL Cholesterol 44, Cholesterol/HDL Ratio 2.5L, Amylase Level 98, Lipase 218, Carcinoembryonic Antigen [Pending], Vitamin D 25-Hydroxy [Pending], 25-Hydroxy Vitamin D2 [Pending], 25-Hydroxy Vitamin D3 [Pending] 11/02/20 12:15: Urine Color Pale yellow, Urine Appearance Clear, Urine pH 5, Urine Specific [place] 1.015, Urine Protein 2+H, Urine Glucose (UA) Negative, Urine Ketones Negative, Urine Blood 1+H, Urine Nitrite Negative, Urine Bilirubin Negative, Urine Urobilinogen Normal, Urine Leukocyte Esterase Negative, Urine RBC 0-2H, Urine WBC 0, Urine Squamous Epithelial Cells Occasional, Urine Bacteria Occasional, Urine Random Sodium 82 Height (Feet): 5 Height (Inches): 11.00 Weight (Pounds): 155 General Appearance: WD/WN, no apparent distress, alert EENT: normal ENT inspection Neck: supple Cardiovascular: normal rate, regular rhythm, no gallop/murmur, no JVD Respiratory/Chest: lungs clear, normal breath sounds, no respiratory distress, no accessory muscle use Abdomen: normal bowel sounds, non tender, soft, no organomegaly, no mass Neurologic: alert, aphasia Assessment/Plan Status Narrative Patient is alert awake febrile or his pain resolved there is no nausea vomiting or diarrhea 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 relates a feeding well signs are stable clear abdomen even distinct palpation generate no tenderness laboratory tests revealed the patient lipase dropped from the 500 level to the 211 sed high school teacher plan to see the patient as an outpatient and have the upper GI and colonoscopy procedure by the time with rapid because of pancreatitis the absence of its cause Diagnosis (based solely on elevated lipase patient with renal failure doubtful will repeat the laboratory tests tomorrow if patient remains asymptomatic and laboratory tests remain stable patient will be discharged back to the extended care facility Elias Nolasco,Elias ROGERS Nov 02, 2020 19:25
--- NOTE | 2020-11-02 19:52 | NUR ---
NURSE NOTES: Received patient awake, non-verbal, communicates by nodding and hand gestures, side rails padded, bed lowered, bed alarm on.
[2020-11-02 20:00] VITALS: BP 133/74
[2020-11-02] MEDS: Miralax 17gm pkt ORAL SCH (20:28)
[2020-11-03] VITALS: BP 136/86
[2020-11-03] MEDS: D5 1/2NS 1,000 ML IV SCH ×2 (01:20→14:36)
[2020-11-03 04:00] VITALS: BP 145/100
--- NOTE | 2020-11-03 06:38 | NUR ---
NURSE HAND-OFF: Important Events on Shift:[]Moved bowel this morning Patient Status: [] Diet: []Regular Pending Orders: [] Pending Results/Labs:[]Stool OB Pending MD notification:[] Latest Vital Signs: Temperature 97.7 , Pulse 74 , B/P 145 /100 , Respiratory Rate 20 , O2 SAT 96 , Room Air, O2 Flow Rate . Vital Sign Comment: [] Latest Foley Fall Score: 55 Fall Risk: High Risk Safety Measures: Call light Within Reach, Bed Alarm Zone 1, Side Rails Side Rails x3, Bed position Low and Locked. Fall Precautions: Yellow Socks Patient Fall Education Report given to [].
--- NOTE | 2020-11-03 06:53 | Hematology/Onc Progress Note ---
Assessment/Plan Assessment/Plan Assessment / Recs # Anemia of chronic disease --> hgb 10.8->10.9 --> no hemolysis is noted --> anemia panel order as needed --> smear has been reviewed # Abdominal pain r/o pancreatitis --> IVfs --> per gi, surg --> imaging noted -> lipase is high # Renal insufficiency --> ivfs --> per renal # Pancreatitis -> supportive care # Dvt ppx lovenox sq Appreciate consultation and robyn RN Subjective HEENT: Denies: no symptoms, eye pain, blurred vision, tearing, double vision, ear pain, ear discharge, nose pain, nose congestion, throat pain, throat swelling, mouth pain, mouth swelling, other Cardiovascular: Denies: no symptoms, chest pain, edema, irregular heart rate, lightheadedness, palpitations, syncope, other Respiratory: Denies: no symptoms, cough, shortness of breath, SOB with excertion, SOB at rest, sputum, wheezing, other Gastrointestinal/Abdominal: Denies: no symptoms, abdomen distended, abdominal pain, black stools, tarry stools, blood in stool, constipated, diarrhea, dif ficulty swallowing, nausea, poor appetite, poor fluid intake, rectal bleeding, vomiting, other Neurologic/Psychiatric: Denies: no symptoms, anxiety, depressed, emotional problems, headache, numbness, paresthesia, pre-existing deficit, seizure, tingling, tremors, weakness, other Endocrine: Denies: no symptoms, excessive sweating, flushing, intolerance to cold, intolerance to heat, increased hunger, increased thirst, increased urine, unexplained weight gain, unexplained weight loss, other Hematologic/Lymphatic: Denies: no symptoms, anemia, easy bleeding, easy bruising, adenopathy, other Allergies: Coded Allergies: No Known Allergies (Unverified , 11/01/20) Subjective 2/3 meds reviewed, labs noted, no bleeding, feeling comfortable Objective Objective Current Medications Medications (Trade) Dose Ordered Sig/Ann Route PRN Reason Start Time Stop Time Status Last Admin Dose Admin Dextrose/Sodium Chloride 1,000 ml @ 75 mls/hr [id number] IV 11/02/20 12:00 12/02/20 11:59 Docusate Sodium (Colace) 100 mg TID ORAL 11/02/20 13:00 12/02/20 08:59 11/02/20 17:03 Enoxaparin Sodium (Lovenox) 40 mg DAILY SUBQ 11/02/20 09:00 01/31/21 08:59 11/02/20 08:31 Hydromorphone HCl (Dilaudid) 1 mg Q6H PRN IVP Severe Pain (Pain Scale 7-10) 11/02/20 00:00 11/09/20 00:00 11/02/20 14:07 Iohexol (OMNIPAQUE-300 100ml) 100 ml NOW PRN INJ Radiology Procedure 11/01/20 17:15 11/03/20 17:14 Levetiracetam 100 ml @ 400 mls/hr Q24H IVPB 11/02/20 09:00 01/31/21 08:59 11/02/20 08:29 Ondansetron HCl (Zofran) 4 mg Q4H PRN IVP Nausea & Vomiting 11/02/20 00:00 12/02/20 00:00 Pantoprazole (Protonix) 40 mg DAILY IVP 11/02/20 09:00 12/02/20 08:59 11/02/20 08:28 Polyethylene Glycol (Miralax) 17 gm BEDTIME ORAL 11/02/20 21:00 12/02/20 20:59 11/02/20 20:28 Last 24 Hour Vital Signs Date Time Temp Pulse Resp B/P (MAP) Pulse Ox O2 Delivery O2 Flow Rate FiO2 11/03/20 04:00 97.7 74 20 145/100 (115) 96 11/03/20 00:00 98.1 69 18 136/86 (103) 98 11/02/20 20:08 Room Air 11/02/20 20:00 97.9 64 20 133/74 (93) 100 11/02/20 16:02 97.3 61 17 140/78 (98) 97 11/02/20 12:00 97.4 60 17 136/91 (106) 99 11/02/20 09:00 Room Air 11/02/20 08:00 97.3 69 17 137/78 (97) 99 11/02/20 04:29 97.3 58 17 127/78 (94) 96 11/02/20 00:16 166/98 11/02/20 00:04 97.9 59 17 166/98 (120) 98 11/01/20 23:24 Room Air 11/01/20 22:33 98.4 80 22 142/87 97 Room Air 11/01/20 22:04 86 22 96 Room Air 11/01/20 18:39 98.4 85 17 142/87 95 Room Air 11/01/20 18:39 85 17 Room Air 11/01/20 16:45 97.2 57 16 138/90 (106) 99 Room Air Intake and Output 11/02/20 11/03/20 19:00 07:00 Intake Total 940 ml 380 ml Output Total 1200 ml Balance -260 ml 380 ml Intake Oral 840 ml 380 ml IV Total 100 ml Output Urine Total 1200 ml # Voids 3 # Bowel Movements 1 Labs Test 11/01/20 17:20 11/02/20 06:00 11/02/20 12:15 11/03/20 03:40 White Blood Count 7.7 K/UL (4.8-10.8) 5.8 K/UL (4.8-10.8) Red Blood Count 3.60 M/UL (4.70-6.10) 3.62 M/UL (4.70-6.10) Hemoglobin 10.8 G/DL (14.2-18.0) 10.9 G/DL (14.2-18.0) Hematocrit 31.6 % (42.0-52.0) 32.4 % (42.0-52.0) Mean Corpuscular Volume 88 FL (80-99) 89 FL (80-99) Mean Corpuscular Hemoglobin 30.0 PG (27.0-31.0) 30.1 PG (27.0-31.0) Mean Corpuscular Hemoglobin Concent 34.1 G/DL (32.0-36.0) 33.7 G/DL (32.0-36.0) Red Cell Distribution Width 12.8 % (11.6-14.8) 12.8 % (11.6-14.8) Platelet Count 200 K/UL (150-450) 169 K/UL (150-450) Mean Platelet Volume 9.9 FL (6.5-10.1) 8.1 FL (6.5-10.1) Neutrophils (%) (Auto) 67.4 % (45.0-75.0) 65.2 % (45.0-75.0) Lymphocytes (%) (Auto) 20.5 % (20.0-45.0) 20.9 % (20.0-45.0) Monocytes (%) (Auto) 7.4 % (1.0-10.0) 8.4 % (1.0-10.0) Eosinophils (%) (Auto) 3.9 % (0.0-3.0) 4.8 % (0.0-3.0) Basophils (%) (Auto) 0.9 % (0.0-2.0) 0.8 % (0.0-2.0) Sodium Level 132 MMOL/L (136-145) 136 MMOL/L (136-145) Potassium Level 4.6 MMOL/L (3.5-5.1) 4.3 MMOL/L (3.5-5.1) Chloride Level 99 MMOL/L (98-107) 104 MMOL/L (98-107) Carbon Dioxide Level 24 MMOL/L (21-32) 25 MMOL/L (21-32) Anion Gap 9 mmol/L (5-15) 7 mmol/L (5-15) Blood Urea Nitrogen 37 mg/dL (7-18) 32 mg/dL (7-18) Creatinine 2.3 MG/DL (0.55-1.30) 2.2 MG/DL (0.55-1.30) Estimat Glomerular Filtration Rate 29.8 mL/min (>60) 31.3 mL/min (>60) Glucose Level 94 MG/DL (74-106) 127 MG/DL (74-106) Calcium Level 9.3 MG/DL (8.5-10.1) 8.8 MG/DL (8.5-10.1) Total Bilirubin 0.4 MG/DL (0.2-1.0) 0.4 MG/DL (0.2-1.0) Aspartate Amino Transf (AST/SGOT) 38 U/L (15-37) 28 U/L (15-37) Alanine Aminotransferase (ALT/SGPT) 77 U/L (12-78) 61 U/L (12-78) Alkaline Phosphatase 119 U/L (46-116) 101 U/L (46-116) Total Protein 7.2 G/DL (6.4-8.2) 6.1 G/DL (6.4-8.2) Albumin 3.8 G/DL (3.4-5.0) 3.2 G/DL (3.4-5.0) Globulin 3.4 g/dL Albumin/Globulin Ratio 1.1 (1.0-2.7) Lipase 516 U/L (73-393) 218 U/L (73-393) Erythrocyte Sedimentation Rate 5 MM/HR (0-20) Direct Bilirubin < 0.1 MG/DL (0.0-0.3) C-Reactive Protein, Quantitative < 0.4 mg/dL (0.00-0.90) Triglycerides Level 69 MG/DL (30-150) Cholesterol Level 111 MG/DL (< 200) LDL Cholesterol 61 mg/dL (<100) HDL Cholesterol 44 MG/DL (40-60) Cholesterol/HDL Ratio 2.5 (3.3-4.4) Amylase Level 98 U/L (25-115) Urine Color Pale yellow Urine Appearance Clear Urine pH 5 (4.5-8.0) Urine Specific [place] 1.015 (1.005-1.035) Urine Protein 2+ (NEGATIVE) Urine Glucose (UA) Negative (NEGATIVE) Urine Ketones Negative (NEGATIVE) Urine Blood 1+ (NEGATIVE) Urine Nitrite Negative (NEGATIVE) Urine Bilirubin Negative (NEGATIVE) Urine Urobilinogen Normal MG/DL (0.0-1.0) Urine Leukocyte Esterase Negative (NEGATIVE) Urine RBC 0-2 /HPF (0 - 0) Urine WBC 0 /HPF (0 - 0) Urine Squamous Epithelial Cells Occasional /LPF Urine Bacteria Occasional /HPF (NONE) Urine Random Sodium 82 mmol/L (20-110) Height (Feet): 5 Height (Inches): 11.00 Weight (Pounds): 155 Objective PE Sp02 EP Interpretation: reviewed, normal General Appearance: no apparent distress, alert, GCS 15, non-toxic Head: normocephalic, atraumatic Eyes: bilateral eye normal inspection, bilateral eye PERRL ENT: hearing grossly normal, normal pharynx, no angioedema Neck: full range of motion, supple/symm/no masses Respiratory: chest non-tender, lungs clear, normal breath sounds Cardiovascular: regular rate, rhythm, no edema Gastrointestinal: normal bowel sounds, soft, non-distended Rectal: deferred Genitourinary: normal inspection, no CVA tenderness Musculoskeletal: back normal Neurologic: alert, motor strength/tone normal Lymphatic: no adenopathy Zev Sorenson MD Nov 03, 2020 06:53
[2020-11-03 07:26] LABS: BASOPHILS % (AUTO) 0.4 % (0.0-2.0); EOSINOPHILS % (AUTO) 3.7 % (0.0-3.0); HEMATOCRIT 35.1 % (42.0-52.0); HEMOGLOBIN 11.8 G/DL (14.2-18.0); LYMPHOCYTES % (AUTO) 14.8 % (20.0-45.0); MEAN CORPUSCULAR VOLUME 90 FL (80-99); MONOCYTES % (AUTO) 6.9 % (1.0-10.0); NEUTROPHILS % (AUTO) 74.2 % (45.0-75.0); PLATELET COUNT 202 K/UL (150-450); RED BLOOD COUNT 3.91 M/UL (4.70-6.10); RED CELL DISTRIBUTION WIDTH 12.5 % (11.6-14.8); WHITE BLOOD COUNT 7.8 K/UL (4.8-10.8)
[2020-11-03 07:43] LABS: CREATINE KINASE 383 U/L (26-308); GAMMA GLUTAMYL TRANSPEPTIDASE 165 U/L (5-85); LACTATE DEHYDROGENASE 145 U/L (81-234)
[2020-11-03 07:59] LABS: ALANINE AMINOTRANSFERASE 53 U/L (12-78); ALBUMIN 3.4 G/DL (3.4-5.0); ALBUMIN/GLOBULIN RATIO 1.1 (1.0-2.7); ALKALINE PHOSPHATASE 107 U/L (46-116); AMYLASE 105 U/L (25-115); ANION GAP 10 mmol/L (5-15); ASPARTATE AMINO TRANSFERASE 24 U/L (15-37); BILIRUBIN,TOTAL 0.3 MG/DL (0.2-1.0); BLOOD UREA NITROGEN 36 mg/dL (7-18); CALCIUM 8.9 MG/DL (8.5-10.1); CARBON DIOXIDE 24 MMOL/L (21-32); CHLORIDE 101 MMOL/L (98-107); CHOLESTEROL 126 MG/DL (< 200); CREATININE 2.4 MG/DL (0.55-1.30); FERRITIN 104 NG/ML (8-388); HDL CHOLESTEROL 40 MG/DL (40-60); PHOSPHORUS 3.6 MG/DL (2.5-4.9); POTASSIUM 4.7 MMOL/L (3.5-5.1); SODIUM 135 MMOL/L (136-145); TRIGLYCERIDES 116 MG/DL (30-150)
[2020-11-03 08:00] VITALS: BP 133/74
--- NOTE | 2020-11-03 08:05 | NUR ---
CASE MANAGEMENT:REVIEW 11/03/20 SI: PANCREATITIS. RENAL INSUFFICIENCY ABDOMINAL PAIN 97.7 74 20 145/100 96% ON RA H/H-11.8/35.1 BUN+36 CR+2.4 IS: COLACE PO TID IVF@75/HR LOVENOX SQ QD IV KEPPRA Q24 IV PROTONIX QD PLAN: MONITOR RENAL FUNCTION ~ CREATININE RISING REGULAR DIET CONVERT IV MEDS TO PO
[2020-11-03 08:07] LABS: % IRON SATURATION 23 % (15-50); IRON 55 ug/dL (50-175); TOTAL IRON BINDING CAPACITY 242 ug/dL (250-450)
--- NOTE | 2020-11-03 08:11 | NUR ---
NURSE NOTES: Patient awake; on room air, no sing of distress and shortness of breath; no sing of chest pain; Iv L-Hand; per PM nurse, ELVIS Adler patient refused to be connected to IV fluid; side rails up x2, breaks engaged, bed at lowest position. Call light within reach; urinal within reach; will keep monitoring.
--- NOTE | 2020-11-03 08:11 | NUR ---
CASE MANAGEMENT:REVIEW 11/03/20 SI: PANCREATITIS. RENAL INSUFFICIENCY ABDOMINAL PAIN 97.7 74 20 145/100 96% ON RA H/H-11.8/35.1 BUN+36 CR+2.4 IS: COLACE PO TID IVF@75/HR LOVENOX SQ QD IV KEPPRA Q24 IV PROTONIX QD : MED/SURG STATUS DCP: NILDA CONV PLAN: MONITOR RENAL FUNCTION ~ CREATININE RISING REGULAR DIET CONVERT IV MEDS TO PO
[2020-11-03] MEDS: Pantoprazole Inj IVP SCH (08:58)
[2020-11-03] MEDS: levETIRAcetam 1,000mg/NS100ml 100 ML IVPB SCH (08:58)
[2020-11-03] MEDS: Docusate 100mg cap ORAL SCH ×3 (08:58→17:15)
[2020-11-03] MEDS: Enoxaparin 40mg Inj SUBQ SCH (09:00)
[2020-11-03] MEDS: HYDROmorphone 1mg/ml Carpuject IVP PRN (09:08)
--- NOTE | 2020-11-03 11:26 | NUR ---
INSURANCE REVIEWS/CLINICALS [facility] DEPT PH#[phone] FAX#[phone]
--- NOTE | 2020-11-03 11:28 | General Progress Note ---
Subjective ROS Limited/Unobtainable: Yes Allergies: Coded Allergies: No Known Allergies (Unverified , 11/01/20) Objective Last 24 Hour Vital Signs Date Time Temp Pulse Resp B/P (MAP) Pulse Ox O2 Delivery O2 Flow Rate FiO2 11/03/20 09:38 97.9 11/03/20 09:00 Room Air 11/03/20 08:00 97.9 64 20 133/74 (93) 100 11/03/20 04:00 97.7 74 20 145/100 (115) 96 11/03/20 00:00 98.1 69 18 136/86 (103) 98 11/02/20 20:08 Room Air 11/02/20 20:00 97.9 64 20 133/74 (93) 100 11/02/20 16:02 97.3 61 17 140/78 (98) 97 11/02/20 12:00 97.4 60 17 136/91 (106) 99 Intake and Output 11/02/20 11/03/20 19:00 07:00 Intake Total 940 ml 380 ml Output Total 1200 ml Balance -260 ml 380 ml Intake Oral 840 ml 380 ml IV Total 100 ml Output Urine Total 1200 ml # Voids 3 # Bowel Movements 1 Laboratory Tests 11/02/20 12:15: Urine Color Pale yellow, Urine Appearance Clear, Urine pH 5, Urine Specific [place] 1.015, Urine Protein 2+H, Urine Glucose (UA) Negative, Urine Ketones Negative, Urine Blood 1+H, Urine Nitrite Negative, Urine Bilirubin Negative, Urine Urobilinogen Normal, Urine Leukocyte Esterase Negative, Urine RBC 0-2H, Urine WBC 0, Urine Squamous Epithelial Cells Occasional, Urine Bacteria Occasional, Urine Random Sodium 82 11/03/20 03:40: Stool Occult Blood Negative 11/03/20 05:47: White Blood Count 7.8, Red Blood Count 3.91L, Hemoglobin 11.8L, Hematocrit 35.1L , Mean Corpuscular Volume 90, Mean Corpuscular Hemoglobin 30.1, Mean Corpuscular Hemoglobin Concent 33.5, Red Cell Distribution Width 12.5, Platelet Count 202, Mean Platelet Volume 7.5, Neutrophils (%) (Auto) 74.2, Lymphocytes (%) (Auto) 14.8L, Monocytes (%) (Auto) 6.9, Eosinophils (%) (Auto) 3.7H, Basophils (%) (Auto) 0.4, Sodium Level 135L, Potassium Level 4.7, Chloride Level 101, Carbon Dioxide Level 24, Anion Gap 10, Blood Urea Nitrogen 36H, Creatinine 2.4H, Estimat Glomerular Filtration Rate 28.4, Glucose Level 89, Hemoglobin A1c 6.0, Uric Acid 8.7H, Calcium Level 8.9, Phosphorus Level 3.6, Magnesium Level 1.9, Iron Level 55, Total Iron Binding Capacity 242L, Percent Iron Saturation 23, Unsaturated Iron Binding 187, Ferritin 104, Total Bilirubin 0.3, Gamma Glutamyl Transpeptidase 165H, Aspartate Amino Transf (AST/SGOT) 24, Alanine Aminotransferase (ALT/SGPT) 53, Alkaline Phosphatase 107, Lactate Dehydrogenase 145, Total Creatine Kinase 383H, C-Reactive Protein, Quantitative < 0.4, Pro-B-Type Natriuretic Peptide 419H, Total Protein 6.6, Albumin 3.4, Globulin 3.2, Albumin/Globulin Ratio 1.1, Triglycerides Level 116, Cholesterol Level 126, LDL Cholesterol 67, HDL Cholesterol 40, Cholesterol/HDL Ratio 3.2L, Amylase Level 105, Lipase 311, Carcinoembryonic Antigen [Pending], Vitamin B12 Level 435, Folate 4.1L, Thyroid Stimulating Hormone (TSH) 0.235L Height (Feet): 5 Height (Inches): 11.00 Weight (Pounds): 155 General Appearance: no apparent distress EENT: normal ENT inspection Neck: supple Cardiovascular: normal rate Respiratory/Chest: decreased breath sounds Abdomen: normal bowel sounds, non tender, soft Extremities: non-tender Assessment/Plan Assessment/Plan: abd pain anemia RI constipation doubt pancreatitis RI anemia work up bowel regimen resume diet repeat labs replace folate will need EGD and colonoscopy most likely as out patient Destin Orellana MD Nov 03, 2020 11:28
[2020-11-03 12:00] VITALS: BP 126/78
--- NOTE | 2020-11-03 13:28 | Nephrology Progress Note ---
Assessment/Plan Problem List: (1) Renal failure (ARF), acute on chronic (2) Dehydration (3) Electrolyte imbalance (4) Anemia Assessment Renal failure, most likely acute on chronic Partly dehydration Abdominal pain, questionable pancreatitis Anemia History of hypertension History of CVA/TIA, aphasia Plan Check urine analysis Slow hydration Avoid nephrotoxic's Monitor renal parameters Anemia work-up Per orders Subjective ROS Limited/Unobtainable: No Constitutional: Reports: malaise Objective Objective Last 24 Hour Vital Signs Date Time Temp Pulse Resp B/P (MAP) Pulse Ox O2 Delivery O2 Flow Rate FiO2 11/03/20 12:00 97.7 64 18 126/78 (94) 99 11/03/20 09:38 97.9 11/03/20 09:00 Room Air 11/03/20 08:00 97.9 64 20 133/74 (93) 100 11/03/20 04:00 97.7 74 20 145/100 (115) 96 11/03/20 00:00 98.1 69 18 136/86 (103) 98 11/02/20 20:08 Room Air 11/02/20 20:00 97.9 64 20 133/74 (93) 100 11/02/20 16:02 97.3 61 17 140/78 (98) 97 Intake and Output 11/02/20 11/03/20 19:00 07:00 Intake Total 940 ml 380 ml Output Total 1200 ml Balance -260 ml 380 ml Intake Oral 840 ml 380 ml IV Total 100 ml Output Urine Total 1200 ml # Voids 3 # Bowel Movements 1 Current Medications Medications (Trade) Dose Ordered Sig/Ann Route PRN Reason Start Time Stop Time Status Last Admin Dose Admin Dextrose/Sodium Chloride 1,000 ml @ 75 mls/hr [id number] IV 11/02/20 12:00 12/02/20 11:59 Docusate Sodium (Colace) 100 mg TID ORAL 11/02/20 13:00 12/02/20 08:59 11/03/20 08:58 Enoxaparin Sodium (Lovenox) 40 mg DAILY SUBQ 11/02/20 09:00 01/31/21 08:59 11/03/20 09:00 Folic Acid (Folate) 1 mg DAILY ORAL 11/04/20 09:00 12/04/20 08:59 Hydromorphone HCl (Dilaudid) 1 mg Q6H PRN IVP Severe Pain (Pain Scale 7-10) 11/02/20 00:00 11/09/20 00:00 11/03/20 09:08 Iohexol (OMNIPAQUE-300 100ml) 100 ml NOW PRN INJ Radiology Procedure 11/01/20 17:15 11/03/20 17:14 Levetiracetam 100 ml @ 400 mls/hr Q24H IVPB 11/02/20 09:00 01/31/21 08:59 11/03/20 08:58 Ondansetron HCl (Zofran) 4 mg Q4H PRN IVP Nausea & Vomiting 11/02/20 00:00 12/02/20 00:00 Pantoprazole (Protonix) 40 mg DAILY IVP 11/02/20 09:00 12/02/20 08:59 11/03/20 08:58 Polyethylene Glycol (Miralax) 17 gm BEDTIME ORAL 11/02/20 21:00 12/02/20 20:59 11/02/20 20:28 Laboratory Tests 11/03/20 03:40: Stool Occult Blood Negative 11/03/20 05:47: White Blood Count 7.8, Red Blood Count 3.91L, Hemoglobin 11.8L, Hematocrit 35.1L , Mean Corpuscular Volume 90, Mean Corpuscular Hemoglobin 30.1, Mean Corpuscular Hemoglobin Concent 33.5, Red Cell Distribution Width 12.5, Platelet Count 202, Mean Platelet Volume 7.5, Neutrophils (%) (Auto) 74.2, Lymphocytes (%) (Auto) 14.8L, Monocytes (%) (Auto) 6.9, Eosinophils (%) (Auto) 3.7H, Basophils (%) (Auto) 0.4, Sodium Level 135L, Potassium Level 4.7, Chloride Level 101, Carbon Dioxide Level 24, Anion Gap 10, Blood Urea Nitrogen 36H, Creatinine 2.4H, Est imat Glomerular Filtration Rate 28.4, Glucose Level 89, Hemoglobin A1c 6.0, Uric Acid 8.7H, Calcium Level 8.9, Phosphorus Level 3.6, Magnesium Level 1.9, Iron Level 55, Total Iron Binding Capacity 242L, Percent Iron Saturation 23, Unsaturated Iron Binding 187, Ferritin 104, Total Bilirubin 0.3, Gamma Glutamyl Transpeptidase 165H, Aspartate Amino Transf (AST/SGOT) 24, Alanine Aminotransferase (ALT/SGPT) 53, Alkaline Phosphatase 107, Lactate Dehydrogenase 145, Total Creatine Kinase 383H, C-Reactive Protein, Quantitative < 0.4, Pro-B-Type Natriuretic Peptide 419H, Total Protein 6.6, Albumin 3.4, Globulin 3.2, Albumin/Globulin Ratio 1.1, Triglycerides Level 116, Cholesterol Level 126, LDL Cholesterol 67, HDL Cholesterol 40, Cholesterol/HDL Ratio 3.2L, Amylase Leve l 105, Lipase 311, Carcinoembryonic Antigen [Pending], Vitamin B12 Level 435, Folate 4.1L, Thyroid Stimulating Hormone (TSH) 0.235L Height (Feet): 5 Height (Inches): 11.00 Weight (Pounds): 155 General Appearance: no apparent distress EENT: other - On nasal cannula Cardiovascular: normal rate Respiratory/Chest: decreased breath sounds Abdomen: distended Jeremy Webb MD Nov 03, 2020 13:28
--- NOTE | 2020-11-03 13:37 | Surgery Progress Note ---
Surgery Progress Note Subjective Symptoms: improved, tolerating diet Objective Last 24 Hour Vital Signs Date Time Temp Pulse Resp B/P (MAP) Pulse Ox O2 Delivery O2 Flow Rate FiO2 11/03/20 12:00 97.7 64 18 126/78 (94) 99 11/03/20 09:38 97.9 11/03/20 09:00 Room Air 11/03/20 08:00 97.9 64 20 133/74 (93) 100 11/03/20 04:00 97.7 74 20 145/100 (115) 96 11/03/20 00:00 98.1 69 18 136/86 (103) 98 11/02/20 20:08 Room Air 11/02/20 20:00 97.9 64 20 133/74 (93) 100 11/02/20 16:02 97.3 61 17 140/78 (98) 97 I&O Intake and Output 11/02/20 11/03/20 19:00 07:00 Intake Total 940 ml 380 ml Output Total 1200 ml Balance -260 ml 380 ml Intake Oral 840 ml 380 ml IV Total 100 ml Output Urine Total 1200 ml # Voids 3 # Bowel Movements 1 Dressing: saturated Cardiovascular: RSR Respiratory: decreased breath sounds Abdomen: soft, non-tender, present bowel sounds, non-distended Extremities: no edema, no tenderness, no cyanosis Laboratory Tests Test 11/03/20 03:40 11/03/20 05:47 Stool Occult Blood Negative (NEGATIVE) White Blood Count 7.8 K/UL (4.8-10.8) Red Blood Count 3.91 M/UL (4.70-6.10) L Hemoglobin 11.8 G/DL (14.2-18.0) L Hematocrit 35.1 % (42.0-52.0) L Mean Corpuscular Volume 90 FL (80-99) Mean Corpuscular Hemoglobin 30.1 PG (27.0-31.0) Mean Corpuscular Hemoglobin Concent 33.5 G/DL (32.0-36.0) Red Cell Distribution Width 12.5 % (11.6-14.8) Platelet Count 202 K/UL (150-450) Mean Platelet Volume 7.5 FL (6.5-10.1) Neutrophils (%) (Auto) 74.2 % (45.0-75.0) Lymphocytes (%) (Auto) 14.8 % (20.0-45.0) L Monocytes (%) (Auto) 6.9 % (1.0-10.0) Eosinophils (%) (Auto) 3.7 % (0.0-3.0) H Basophils (%) (Auto) 0.4 % (0.0-2.0) Sodium Level 135 MMOL/L (136-145) L Potassium Level 4.7 MMOL/L (3.5-5.1) Chloride Level 101 MMOL/L (98-107) Carbon Dioxide Level 24 MMOL/L (21-32) Anion Gap 10 mmol/L (5-15) Blood Urea Nitrogen 36 mg/dL (7-18) H Creatinine 2.4 MG/DL (0.55-1.30) H Estimat Glomerular Filtration Rate 28.4 mL/min (>60) Glucose Level 89 MG/DL (74-106) Hemoglobin A1c 6.0 % (4.3-6.0) Uric Acid 8.7 MG/DL (2.6-7.2) H Calcium Level 8.9 MG/DL (8.5-10.1) Phosphorus Level 3.6 MG/DL (2.5-4.9) Magnesium Level 1.9 MG/DL (1.8-2.4) Iron Level 55 ug/dL (50-175) Total Iron Binding Capacity 242 ug/dL (250-450) L Percent Iron Saturation 23 % (15-50) Unsaturated Iron Binding 187 ug/dL (112-346) Ferritin 104 NG/ML (8-388) Total Bilirubin 0.3 MG/DL (0.2-1.0) Gamma Glutamyl Transpeptidase 165 U/L (5-85) H Aspartate Amino Transf (AST/SGOT) 24 U/L (15-37) Alanine Aminotransferase (ALT/SGPT) 53 U/L (12-78) Alkaline Phosphatase 107 U/L (46-116) Lactate Dehydrogenase 145 U/L (81-234) Total Creatine Kinase 383 U/L (26-308) H C-Reactive Protein, Quantitative < 0.4 mg/dL (0.00-0.90) Pro-B-Type Natriuretic Peptide 419 pg/mL (0-125) H Total Protein 6.6 G/DL (6.4-8.2) Albumin 3.4 G/DL (3.4-5.0) Globulin 3.2 g/dL Albumin/Globulin Ratio 1.1 (1.0-2.7) Triglycerides Level 116 MG/DL (30-150) Cholesterol Level 126 MG/DL (< 200) LDL Cholesterol 67 mg/dL (<100) HDL Cholesterol 40 MG/DL (40-60) Cholesterol/HDL Ratio 3.2 (3.3-4.4) L Amylase Level 105 U/L (25-115) Lipase 311 U/L (73-393) Carcinoembryonic Antigen Pending Vitamin B12 Level 435 PG/ML (193-986) Folate 4.1 NG/ML (8.6-58.9) L Thyroid Stimulating Hormone (TSH) 0.235 uiU/mL (0.358-3.740) Plan Problems: (1) Renal insufficiency (2) Pancreatitis (3) Abdominal pain Assessment & Plan: 55M abd pain labs noted ct reviewed exam benign no acute surgical intervention bowel regimen gi input will follow with exam and recs thank you ABDOMEN: Liver: Unremarkable. No mass. Gallbladder and bile ducts: Unremarkable. No calcified stones. No ductal dilation. Pancreas: Unremarkable. No mass. No ductal dilation. Spleen: Unremarkable. No splenomegaly. Adrenals: Unremarkable. No mass. Kidneys and ureters: Small low-attenuation structures within the right kidney, some too small to characterize and measuring less than 7 mm, largest seen within the mid lower pole measuring 1.8 x 1.7 cm compatible with a simple cyst. The smaller structures are statistically consistent with cyst. Normal left kidney. Stomach and bowel: Increased fecal debris within the colon suggestive of constipation. No obstruction. No mucosal thickening. PELVIS: Appendix: Normal appendix. Bladder: Unremarkable. No mass. Reproductive: Unremarkable as visualized. ABDOMEN and PELVIS: Intraperitoneal space: Unremarkable. No free air. No significant fluid collection. Bones/joints: Mild degenerative disease of the spine. No acute fracture. No dislocation. Soft tissues: Small bilateral fat-containing inguinal hernias. Vasculature: Unremarkable. No abdominal aortic aneurysm. Lymph nodes: Unremarkable. No enlarged lymph nodes. IMPRESSION: 1. Constipation. No acute appendicitis or bowel obstruction. 2. Nonspecific small bilateral renal cysts. If indicated, this can be further confirmed with ultrasound of the kidneys the nonacute setting. Sandro Sunshine Nov 03, 2020 13:37
[2020-11-03 16:00] VITALS: BP 138/86
--- NOTE | 2020-11-03 19:44 | NUR ---
NURSE HAND-OFF: Important Events on Shift:Inserted new IV line; hydration, anti-biotics; Patient Status: Diet: Pending Orders: Pending Results/Labs: Pending MD notification: Latest Vital Signs: Temperature 97.9 , Pulse 73 , B/P 138 /86 , Respiratory Rate 18 , O2 SAT 97 , Room Air, O2 Flow Rate . Vital Sign Comment: Latest Foley Fall Score: 55 Fall Risk: High Risk Safety Measures: Call light Within Reach, Bed Alarm Zone 1, Side Rails Side Rails x3, Bed position Low and Locked. Fall Precautions: Yellow Socks Patient Fall Education Report given to .
--- NOTE | 2020-11-03 19:47 | NUR ---
NURSE NOTES: Patient in bed, awake, alert x 4. Able to make needs known. Respiration is even and unlabored. No complaint of pain or discomfort noted at the moment. Bed in low and locked position.Kept clean and comfortable. Iv site noted, refuses iv fluid, educated patient regarding, still refuses. Patient is able to tolerate po fluids, encouraged and will educate again regarding iv fluid infusion. call light is at bedside. Will continue plan of care.
[2020-11-03 20:00] VITALS: BP 144/97
[2020-11-03] MEDS: Miralax 17gm pkt ORAL SCH (20:53)
--- NOTE | 2020-11-03 20:53 | NUR ---
NURSE NOTES: Patient complaining of diarrhea, miralax not given.
--- NOTE | 2020-11-03 23:22 | General Progress Note ---
Subjective Constitutional: Reports: no symptoms HEENT: Reports: no symptoms Cardiovascular: Reports: no symptoms Respiratory: Reports: no symptoms Gastrointestinal/Abdominal: Reports: abdomen distended, abdominal pain, nausea Neurologic/Psychiatric: Reports: no symptoms Endocrine: Reports: no symptoms Hematologic/Lymphatic: Reports: no symptoms Allergies: Coded Allergies: No Known Allergies (Unverified , 11/01/20) Objective Last 24 Hour Vital Signs Date Time Temp Pulse Resp B/P (MAP) Pulse Ox O2 Delivery O2 Flow Rate FiO2 11/03/20 21:00 Room Air 11/03/20 20:00 98.2 65 20 144/97 (113) 99 11/03/20 16:00 97.9 73 18 138/86 (103) 97 11/03/20 12:00 97.7 64 18 126/78 (94) 99 11/03/20 09:38 97.9 11/03/20 09:00 Room Air 11/03/20 08:00 97.9 64 20 133/74 (93) 100 11/03/20 04:00 97.7 74 20 145/100 (115) 96 11/03/20 00:00 98.1 69 18 136/86 (103) 98 Intake and Output 11/02/20 11/03/20 19:00 07:00 Intake Total 940 ml 380 ml Output Total 1200 ml Balance -260 ml 380 ml Intake Oral 840 ml 380 ml IV Total 100 ml Output Urine Total 1200 ml # Voids 3 # Bowel Movements 1 Laboratory Tests 11/03/20 03:40: Stool Occult Blood Negative 11/03/20 05:47: White Blood Count 7.8, Red Blood Count 3.91L, Hemoglobin 11.8L, Hematocrit 35.1L , Mean Corpuscular Volume 90, Mean Corpuscular Hemoglobin 30.1, Mean Corpuscular Hemoglobin Concent 33.5, Red Cell Distribution Width 12.5, Platelet Count 202, Mean Platelet Volume 7.5, Neutrophils (%) (Auto) 74.2, Lymphocytes (%) (Auto) 14.8L, Monocytes (%) (Auto) 6.9, Eosinophils (%) (Auto) 3.7H, Basophils (%) (Auto) 0.4, Sodium Level 135L, Potassium Level 4.7, Chloride Level 101, Carbon Dioxide Level 24, Anion Gap 10, Blood Urea Nitrogen 36H, Creatinine 2.4H, Estimat Glomerular Filtration Rate 28.4, Glucose Level 89, Hemoglobin A1c 6.0, Uric Acid 8.7H, Calcium Level 8.9, Phosphorus Level 3.6, Magnesium Level 1.9, Iron Level 55, Total Iron Binding Capacity 242L, Percent Iron Saturation 23, Unsaturated Iron Binding 187, Ferritin 104, Total Bilirubin 0.3, Gamma Glutamyl Transpeptidase 165H, Aspartate Amino Transf (AST/SGOT) 24, Alanine Aminotransferase (ALT/SGPT) 53, Alkaline Phosphatase 107, Lactate Dehydrogenase 145, Total Creatine Kinase 383H, C-Reactive Protein, Quantitative < 0.4, Pro-B-Type Natriuretic Peptide 419H, Total Protein 6.6, Albumin 3.4, Globulin 3.2, Albumin/Globulin Ratio 1.1, Triglycerides Level 116, Cholesterol Level 126, LDL Cholesterol 67, HDL Cholesterol 40, Cholesterol/HDL Ratio 3.2L, Amylase Level 105, Lipase 311, Carcinoembryonic Antigen [Pending], Vitamin B12 Level 435, Folate 4.1L, Thyroid Stimulating Hormone (TSH) 0.235L Height (Feet): 5 Height (Inches): 11.00 Weight (Pounds): 155 General Appearance: alert, severe distress EENT: normal ENT inspection Neck: supple Cardiovascular: normal rate, regular rhythm, no gallop/murmur, no JVD Respiratory/Chest: lungs clear, normal breath sounds, no accessory muscle use Abdomen: hypoactive bowel sounds, distended Extremities: non-tender Neurologic: alert, oriented x 3 Skin: warm/dry Assessment/Plan Status Narrative After 36 hours without any pain patient developed severe midepigastric and periumbilical abdominal pain that he could not tolerate is unable to stand straight patient could previously without difficulties could not find an antalgic gait and developed nausea with the pain the patient have rhabdomyolysis with CK in the 400s with significant elevation of proBNP levels lipase will be ordered in a.m. ligament markers will be ordered order in a.m. as well Elias Riojas MD, MD Nov 03, 2020 23:22
[2020-11-04] VITALS: BP 140/98
[2020-11-04] MEDS: D5 1/2NS 1,000 ML IV SCH (03:52)
[2020-11-04 04:00] VITALS: BP 142/66
--- NOTE | 2020-11-04 06:00 | NUR ---
NURSE NOTES: Patient refused IV fluid. Patient is drinking fluids. Call light is at bedside. Will continue plan of care.
--- NOTE | 2020-11-04 06:34 | Hematology/Onc Progress Note ---
Assessment/Plan Assessment/Plan Assessment / Recs # Anemia of chronic disease --> hgb 10.8->10.9 --> no hemolysis is noted --> anemia panel order as needed --> smear has been reviewed # Abdominal pain r/o pancreatitis --> IVfs --> per gi, surg --> imaging noted -> lipase is high # Renal insufficiency --> ivfs --> per renal # Pancreatitis -> supportive care # Dvt ppx lovenox sq Appreciate consultation and robyn RN Subjective HEENT: Denies: no symptoms, eye pain, blurred vision, tearing, double vision, ear pain, ear discharge, nose pain, nose congestion, throat pain, throat swelling, mouth pain, mouth swelling, other Cardiovascular: Denies: no symptoms, chest pain, edema, irregular heart rate, lightheadedness, palpitations, syncope, other Respiratory: Denies: no symptoms, cough, shortness of breath, SOB with excertion, SOB at rest, sputum, wheezing, other Gastrointestinal/Abdominal: Denies: no symptoms, abdomen distended, abdominal pain, black stools, tarry stools, blood in stool, constipated, diarrhea, dif ficulty swallowing, nausea, poor appetite, poor fluid intake, rectal bleeding, vomiting, other Genitourinary: Denies: no symptoms, burning, discharge, frequency, flank pain, hematuria, incontinence, pain, urgency, other Neurologic/Psychiatric: Denies: no symptoms, anxiety, depressed, emotional problems, headache, numbness, paresthesia, pre-existing deficit, seizure, tingling, tremors, weakness, other Endocrine: Denies: no symptoms, excessive sweating, flushing, intolerance to cold, intolerance to heat, increased hunger, increased thirst, increased urine, unexplained weight gain, unexplained weight loss, other Hematologic/Lymphatic: Denies: no symptoms, anemia, easy bleeding, easy bruising, adenopathy, other Allergies: Coded Allergies: No Known Allergies (Unverified , 11/01/20) Subjective 2/3 meds reviewed, labs noted, no bleeding, feeling comfortable 2/4 labs are pending, meds noted, no bleeding, no complaints Objective Objective Current Medications Medications (Trade) Dose Ordered Sig/Ann Route PRN Reason Start Time Stop Time Status Last Admin Dose Admin Dextrose/Sodium Chloride 1,000 ml @ 75 mls/hr [id number] IV 2/2/21 12:00 12/02/20 11:59 11/03/20 14:36 Docusate Sodium (Colace) 100 mg TID ORAL 11/02/20 13:00 12/02/20 08:59 11/03/20 17:15 Enoxaparin Sodium (Lovenox) 40 mg DAILY SUBQ 11/02/20 09:00 01/31/21 08:59 11/03/20 09:00 Folic Acid (Folate) 1 mg DAILY ORAL 11/04/20 09:00 12/04/20 08:59 Hydromorphone HCl (Dilaudid) 1 mg Q6H PRN IVP Severe Pain (Pain Scale 7-10) 11/02/20 00:00 11/09/20 00:00 11/03/20 09:08 Levetiracetam 100 ml @ 400 mls/hr Q24H IVPB 11/02/20 09:00 01/31/21 08:59 11/03/20 08:58 Ondansetron HCl (Zofran) 4 mg Q4H PRN IVP Nausea & Vomiting 11/02/20 00:00 12/02/20 00:00 Pantoprazole (Protonix) 40 mg DAILY IVP 11/02/20 09:00 12/02/20 08:59 11/03/20 08:58 Polyethylene Glycol (Miralax) 17 gm BEDTIME ORAL 11/02/20 21:00 12/02/20 20:59 11/02/20 20:28 Last 24 Hour Vital Signs Date Time Temp Pulse Resp B/P (MAP) Pulse Ox O2 Delivery O2 Flow Rate FiO2 11/04/20 04:00 98.5 72 22 142/66 (91) 98 11/04/20 00:00 98.0 70 22 140/98 (112) 97 11/03/20 21:00 Room Air 11/03/20 20:00 98.2 65 20 144/97 (113) 99 11/03/20 16:00 97.9 73 18 138/86 (103) 97 11/03/20 12:00 97.7 64 18 126/78 (94) 99 11/03/20 09:38 97.9 11/03/20 09:00 Room Air 11/03/20 08:00 97.9 64 20 133/74 (93) 100 11/03/20 04:00 97.7 74 20 145/100 (115) 96 11/03/20 00:00 98.1 69 18 136/86 (103) 98 11/02/20 20:08 Room Air 11/02/20 20:00 97.9 64 20 133/74 (93) 100 11/02/20 16:02 97.3 61 17 140/78 (98) 97 11/02/20 12:00 97.4 60 17 136/91 (106) 99 11/02/20 09:00 Room Air 11/02/20 08:00 97.3 69 17 137/78 (97) 99 Intake and Output 11/03/20 11/04/20 19:00 07:00 Intake Total 700 ml 875 ml Output Total 500 ml 750 ml Balance 200 ml 125 ml Intake Oral 800 ml IV Total 700 ml 75 ml Output Urine Total 500 ml 750 ml # Voids 2 Labs Test 11/01/20 17:20 11/02/20 06:00 11/02/20 12:15 11/03/20 03:40 White Blood Count 7.7 K/UL (4.8-10.8) 5.8 K/UL (4.8-10.8) Red Blood Count 3.60 M/UL (4.70-6.10) 3.62 M/UL (4.70-6.10) Hemoglobin 10.8 G/DL (14.2-18.0) 10.9 G/DL (14.2-18.0) Hematocrit 31.6 % (42.0-52.0) 32.4 % (42.0-52.0) Mean Corpuscular Volume 88 FL (80-99) 89 FL (80-99) Mean Corpuscular Hemoglobin 30.0 PG (27.0-31.0) 30.1 PG (27.0-31.0) Mean Corpuscular Hemoglobin Concent 34.1 G/DL (32.0-36.0) 33.7 G/DL (32.0-36.0) Red Cell Distribution Width 12.8 % (11.6-14.8) 12.8 % (11.6-14.8) Platelet Count 200 K/UL (150-450) 169 K/UL (150-450) Mean Platelet Volume 9.9 FL (6.5-10.1) 8.1 FL (6.5-10.1) Neutrophils (%) (Auto) 67.4 % (45.0-75.0) 65.2 % (45.0-75.0) Lymphocytes (%) (Auto) 20.5 % (20.0-45.0) 20.9 % (20.0-45.0) Monocytes (%) (Auto) 7.4 % (1.0-10.0) 8.4 % (1.0-10.0) Eosinophils (%) (Auto) 3.9 % (0.0-3.0) 4.8 % (0.0-3.0) Basophils (%) (Auto) 0.9 % (0.0-2.0) 0.8 % (0.0-2.0) Sodium Level 132 MMOL/L (136-145) 136 MMOL/L (136-145) Potassium Level 4.6 MMOL/L (3.5-5.1) 4.3 MMOL/L (3.5-5.1) Chloride Level 99 MMOL/L (98-107) 104 MMOL/L (98-107) Carbon Dioxide Level 24 MMOL/L (21-32) 25 MMOL/L (21-32) Anion Gap 9 mmol/L (5-15) 7 mmol/L (5-15) Blood Urea Nitrogen 37 mg/dL (7-18) 32 mg/dL (7-18) Creatinine 2.3 MG/DL (0.55-1.30) 2.2 MG/DL (0.55-1.30) Estimat Glomerular Filtration Rate 29.8 mL/min (>60) 31.3 mL/min (>60) Glucose Level 94 MG/DL (74-106) 127 MG/DL (74-106) Calcium Level 9.3 MG/DL (8.5-10.1) 8.8 MG/DL (8.5-10.1) Total Bilirubin 0.4 MG/DL (0.2-1.0) 0.4 MG/DL (0.2-1.0) Aspartate Amino Transf (AST/SGOT) 38 U/L (15-37) 28 U/L (15-37) Alanine Aminotransferase (ALT/SGPT) 77 U/L (12-78) 61 U/L (12-78) Alkaline Phosphatase 119 U/L (46-116) 101 U/L (46-116) Total Protein 7.2 G/DL (6.4-8.2) 6.1 G/DL (6.4-8.2) Albumin 3.8 G/DL (3.4-5.0) 3.2 G/DL (3.4-5.0) Globulin 3.4 g/dL Albumin/Globulin Ratio 1.1 (1.0-2.7) Lipase 516 U/L (73-393) 218 U/L (73-393) Erythrocyte Sedimentation Rate 5 MM/HR (0-20) Direct Bilirubin < 0.1 MG/DL (0.0-0.3) C-Reactive Protein, Quantitative < 0.4 mg/dL (0.00-0.90) Triglycerides Level 69 MG/DL (30-150) Cholesterol Level 111 MG/DL (< 200) LDL Cholesterol 61 mg/dL (<100) HDL Cholesterol 44 MG/DL (40-60) Cholesterol/HDL Ratio 2.5 (3.3-4.4) Amylase Level 98 U/L (25-115) Urine Color Pale yellow Urine Appearance Clear Urine pH 5 (4.5-8.0) Urine Specific [place] 1.015 (1.005-1.035) Urine Protein 2+ (NEGATIVE) Urine Glucose (UA) Negative (NEGATIVE) Urine Ketones Negative (NEGATIVE) Urine Blood 1+ (NEGATIVE) Urine Nitrite Negative (NEGATIVE) Urine Bilirubin Negative (NEGATIVE) Urine Urobilinogen Normal MG/DL (0.0-1.0) Urine Leukocyte Esterase Negative (NEGATIVE) Urine RBC 0-2 /HPF (0 - 0) Urine WBC 0 /HPF (0 - 0) Urine Squamous Epithelial Cells Occasional /LPF Urine Bacteria Occasional /HPF (NONE) Urine Random Sodium 82 mmol/L (20-110) Stool Occult Blood Negative (NEGATIVE) Test 11/03/20 05:47 White Blood Count 7.8 K/UL (4.8-10.8) Red Blood Count 3.91 M/UL (4.70-6.10) Hemoglobin 11.8 G/DL (14.2-18.0) Hematocrit 35.1 % (42.0-52.0) Mean Corpuscular Volume 90 FL (80-99) Mean Corpuscular Hemoglobin 30.1 PG (27.0-31.0) Mean Corpuscular Hemoglobin Concent 33.5 G/DL (32.0-36.0) Red Cell Distribution Width 12.5 % (11.6-14.8) Platelet Count 202 K/UL (150-450) Mean Platelet Volume 7.5 FL (6.5-10.1) Neutrophils (%) (Auto) 74.2 % (45.0-75.0) Lymphocytes (%) (Auto) 14.8 % (20.0-45.0) Monocytes (%) (Auto) 6.9 % (1.0-10.0) Eosinophils (%) (Auto) 3.7 % (0.0-3.0) Basophils (%) (Auto) 0.4 % (0.0-2.0) Sodium Level 135 MMOL/L (136-145) Potassium Level 4.7 MMOL/L (3.5-5.1) Chloride Level 101 MMOL/L (98-107) Carbon Dioxide Level 24 MMOL/L (21-32) Anion Gap 10 mmol/L (5-15) Blood Urea Nitrogen 36 mg/dL (7-18) Creatinine 2.4 MG/DL (0.55-1.30) Estimat Glomerular Filtration Rate 28.4 mL/min (>60) Glucose Level 89 MG/DL (74-106) Hemoglobin A1c 6.0 % (4.3-6.0) Uric Acid 8.7 MG/DL (2.6-7.2) Calcium Level 8.9 MG/DL (8.5-10.1) Phosphorus Level 3.6 MG/DL (2.5-4.9) Magnesium Level 1.9 MG/DL (1.8-2.4) Iron Level 55 ug/dL (50-175) Total Iron Binding Capacity 242 ug/dL (250-450) Percent Iron Saturation 23 % (15-50) Unsaturated Iron Binding 187 ug/dL (112-346) Ferritin 104 NG/ML (8-388) Total Bilirubin 0.3 MG/DL (0.2-1.0) Gamma Glutamyl Transpeptidase 165 U/L (5-85) Aspartate Amino Transf (AST/SGOT) 24 U/L (15-37) Alanine Aminotransferase (ALT/SGPT) 53 U/L (12-78) Alkaline Phosphatase 107 U/L (46-116) Lactate Dehydrogenase 145 U/L (81-234) Total Creatine Kinase 383 U/L (26-308) C-Reactive Protein, Quantitative < 0.4 mg/dL (0.00-0.90) Pro-B-Type Natriuretic Peptide 419 pg/mL (0-125) Total Protein 6.6 G/DL (6.4-8.2) Albumin 3.4 G/DL (3.4-5.0) Globulin 3.2 g/dL Albumin/Globulin Ratio 1.1 (1.0-2.7) Triglycerides Level 116 MG/DL (30-150) Cholesterol Level 126 MG/DL (< 200) LDL Cholesterol 67 mg/dL (<100) HDL Cholesterol 40 MG/DL (40-60) Cholesterol/HDL Ratio 3.2 (3.3-4.4) Amylase Level 105 U/L (25-115) Lipase 311 U/L (73-393) Vitamin B12 Level 435 PG/ML (193-986) Folate 4.1 NG/ML (8.6-58.9) Thyroid Stimulating Hormone (TSH) 0.235 uiU/mL (0.358-3.740) Height (Feet): 5 Height (Inches): 11.00 Weight (Pounds): 155 Objective PE Sp02 EP Interpretation: reviewed, normal General Appearance: no apparent distress, alert, GCS 15, non-toxic Head: normocephalic, atraumatic Eyes: bilateral eye normal inspection, bilateral eye PERRL ENT: hearing grossly normal, normal pharynx, no angioedema Neck: full range of motion, supple/symm/no masses Respiratory: chest non-tender, lungs clear, normal breath sounds Cardiovascular: regular rate, rhythm, no edema Gastrointestinal: normal bowel sounds, soft, non-distended Rectal: deferred Genitourinary: normal inspection, no CVA tenderness Musculoskeletal: back normal Neurologic: alert, motor strength/tone normal Lymphatic: no adenopathy Zev Sorenson MD Nov 04, 2020 06:34
--- NOTE | 2020-11-04 07:05 | NUR ---
NURSE HAND-OFF: Important Events on Shift:WNL Patient Status: WNL Diet: Clear Pending Orders: CBC, BMP Pending Results/Labs: Pending MD notification: Latest Vital Signs: Temperature 98.5 , Pulse 72 , B/P 142 /66 , Respiratory Rate 22 , O2 SAT 98 , Room Air, O2 Flow Rate . Vital Sign Comment: WNL Latest Foley Fall Score: 45 Fall Risk: High Risk Safety Measures: Call light Within Reach, Bed Alarm Zone 1, Side Rails Side Rails x3, Bed position Low and Locked. Fall Precautions: Yellow Socks Patient Fall Education Report given to ELVIS Ontiveros.
[2020-11-04 07:16] LABS: BASOPHILS % (AUTO) 0.5 % (0.0-2.0); EOSINOPHILS % (AUTO) 4.1 % (0.0-3.0); HEMATOCRIT 34.2 % (42.0-52.0); HEMOGLOBIN 11.7 G/DL (14.2-18.0); LYMPHOCYTES % (AUTO) 19.5 % (20.0-45.0); MEAN CORPUSCULAR VOLUME 88 FL (80-99); MONOCYTES % (AUTO) 9.2 % (1.0-10.0); NEUTROPHILS % (AUTO) 66.6 % (45.0-75.0); PLATELET COUNT 184 K/UL (150-450); RED BLOOD COUNT 3.87 M/UL (4.70-6.10); RED CELL DISTRIBUTION WIDTH 12.5 % (11.6-14.8); WHITE BLOOD COUNT 6.8 K/UL (4.8-10.8)
--- NOTE | 2020-11-04 07:50 | NUR ---
NURSE NOTES: Patient awake, confused, dressed up his clothes to leave the hospital; patient instructed no discharge order and to wait for the doctor; IV LAC flushes well; patient refused to be connected to IV fluid, risk and benefits explained to this patient, still patient refused; side rails up x2, breaks engaged, bed at lowest position, call light and Urinal within reach; will keep monitoring.
[2020-11-04 08:00] VITALS: BP 154/95
--- NOTE | 2020-11-04 08:18 | Surgery Progress Note ---
Surgery Progress Note Subjective Additional Comments afebrile, HD stable labs noted micro reviewed comfortable appearing no n/v Objective Last 24 Hour Vital Signs Date Time Temp Pulse Resp B/P (MAP) Pulse Ox O2 Delivery O2 Flow Rate FiO2 11/04/20 04:00 98.5 72 22 142/66 (91) 98 11/04/20 00:00 98.0 70 22 140/98 (112) 97 11/03/20 21:00 Room Air 11/03/20 20:00 98.2 65 20 144/97 (113) 99 11/03/20 16:00 97.9 73 18 138/86 (103) 97 11/03/20 12:00 97.7 64 18 126/78 (94) 99 11/03/20 09:38 97.9 11/03/20 09:00 Room Air I&O Intake and Output 11/03/20 11/04/20 19:00 07:00 Intake Total 700 ml 875 ml Output Total 500 ml 750 ml Balance 200 ml 125 ml Intake Oral 800 ml IV Total 700 ml 75 ml Output Urine Total 500 ml 750 ml # Voids 2 Dressing: other Wound: other Cardiovascular: RSR Respiratory: decreased breath sounds Abdomen: soft, non-tender, present bowel sounds, non-distended Extremities: no edema, no tenderness, no cyanosis Laboratory Tests Test 11/04/20 05:40 White Blood Count 6.8 K/UL (4.8-10.8) Red Blood Count 3.87 M/UL (4.70-6.10) L Hemoglobin 11.7 G/DL (14.2-18.0) L Hematocrit 34.2 % (42.0-52.0) L Mean Corpuscular Volume 88 FL (80-99) Mean Corpuscular Hemoglobin 30.2 PG (27.0-31.0) Mean Corpuscular Hemoglobin Concent 34.1 G/DL (32.0-36.0) Red Cell Distribution Width 12.5 % (11.6-14.8) Platelet Count 184 K/UL (150-450) Mean Platelet Volume 7.8 FL (6.5-10.1) Neutrophils (%) (Auto) 66.6 % (45.0-75.0) Lymphocytes (%) (Auto) 19.5 % (20.0-45.0) L Monocytes (%) (Auto) 9.2 % (1.0-10.0) Eosinophils (%) (Auto) 4.1 % (0.0-3.0) H Basophils (%) (Auto) 0.5 % (0.0-2.0) Lipase 283 U/L (73-393) CA 19-9 Antigen Pending Plan Problems: (1) Renal insufficiency (2) Pancreatitis (3) Abdominal pain Assessment & Plan: 55M abd pain labs noted ct reviewed exam benign no acute surgical intervention bowel regimen gi input will follow with exam and recs thank you ABDOMEN: Liver: Unremarkable. No mass. Gallbladder and bile ducts: Unremarkable. No calcified stones. No ductal dilation. Pancreas: Unremarkable. No mass. No ductal dilation. Spleen: Unremarkable. No splenomegaly. Adrenals: Unremarkable. No mass. Kidneys and ureters: Small low-attenuation structures within the right kidney, some too small to characterize and measuring less than 7 mm, largest seen within the mid lower pole measuring 1.8 x 1.7 cm compatible with a simple cyst. The smaller structures are statistically consistent with cyst. Normal left kidney. Stomach and bowel: Increased fecal debris within the colon suggestive of constipation. No obstruction. No mucosal thickening. PELVIS: Appendix: Normal appendix. Bladder: Unremarkable. No mass. Reproductive: Unremarkable as visualized. ABDOMEN and PELVIS: Intraperitoneal space: Unremarkable. No free air. No significant fluid collection. Bones/joints: Mild degenerative disease of the spine. No acute fracture. No dislocation. Soft tissues: Small bilateral fat-containing inguinal hernias. Vasculature: Unremarkable. No abdominal aortic aneurysm. Lymph nodes: Unremarkable. No enlarged lymph nodes. IMPRESSION: 1. Constipation. No acute appendicitis or bowel obstruction. 2. Nonspecific small bilateral renal cysts. If indicated, this can be further confirmed with ultrasound of the kidneys the nonacute setting. Sandro Sunshine Nov 04, 2020 08:18
[2020-11-04] MEDS: Pantoprazole Inj IVP SCH (09:04)
[2020-11-04] MEDS: levETIRAcetam 1,000mg/NS100ml 100 ML IVPB SCH (09:04)
[2020-11-04] MEDS: Docusate 100mg cap ORAL SCH ×3 (09:05→18:00)
[2020-11-04] MEDS: Enoxaparin 40mg Inj SUBQ SCH (09:08)
--- NOTE | 2020-11-04 10:14 | NUR ---
RD ASSESSMENT & RECOMMENDATIONS SEE CARE ACTIVITY FOR COMPLETE ASSESSMENT DAILY ESTIMATED NEEDS: Needs based on cardiac, renal 71kg 25-30 kcals/kg 8654-7574 total kcals 1-1.5 g protein/kg 71-107 g total protein 25-30 mL/kg 6905-9004 total fluid mLs NUTRITION DIAGNOSIS: Self feeding difficulty r/t medical history, L side weakness, h/o craniotomy as evidenced by pt requires 1:1 feeds with all meals, CURRENT DIET: regular PO DIET RECOMMENDATIONS: Low Na diet/ texture per [employer] ADDITIONAL RECOMMENDATIONS: 1) rec [employer] eval for appropriate texture 2) Monitor renal status/ lytes, need for renal diet 3) rec q8 bedside BG checks 4) Calibrated bedscale wts 5) Add Glucerna 1 tetra qdaily (250 kcal/10g pro)
--- NOTE | 2020-11-04 10:20 | Nephrology Progress Note ---
Assessment/Plan Problem List: (1) Renal failure (ARF), acute on chronic (2) Dehydration (3) Electrolyte imbalance (4) Anemia Assessment Renal failure, most likely acute on chronic Partly dehydration Abdominal pain, questionable pancreatitis Anemia History of hypertension History of CVA/TIA, aphasia Plan November 04: No chemistry panel done today. Patient taking p.o. Change Protonix to p.o. Folic acid supplement. DC IV. Lisinopril for high blood pressure. Continue per consultants. Previously: Check urine analysis Slow hydration Avoid nephrotoxic's Monitor renal parameters Anemia work-up Per orders Subjective ROS Limited/Unobtainable: No Constitutional: Reports: malaise Objective Objective Last 24 Hour Vital Signs Date Time Temp Pulse Resp B/P (MAP) Pulse Ox O2 Delivery O2 Flow Rate FiO2 11/04/20 08:00 98.6 74 20 154/95 (114) 98 11/04/20 04:00 98.5 72 22 142/66 (91) 98 11/04/20 00:00 98.0 70 22 140/98 (112) 97 11/03/20 21:00 Room Air 11/03/20 20:00 98.2 65 20 144/97 (113) 99 11/03/20 16:00 97.9 73 18 138/86 (103) 97 11/03/20 12:00 97.7 64 18 126/78 (94) 99 Intake and Output 11/03/20 11/04/20 19:00 07:00 Intake Total 700 ml 875 ml Output Total 500 ml 750 ml Balance 200 ml 125 ml Intake Oral 800 ml IV Total 700 ml 75 ml Output Urine Total 500 ml 750 ml # Voids 2 Current Medications Medications (Trade) Dose Ordered Sig/Ann Route PRN Reason Start Time Stop Time Status Last Admin Dose Admin Docusate Sodium (Colace) 100 mg TID ORAL 11/02/20 13:00 12/02/20 08:59 11/04/20 09:05 Enoxaparin Sodium (Lovenox) 40 mg DAILY SUBQ 11/02/20 09:00 01/31/21 08:59 11/04/20 09:08 Folic Acid (Folate) 3 mg DAILY ORAL 11/04/20 10:15 12/04/20 10:14 Hydromorphone HCl (Dilaudid) 1 mg Q6H PRN IVP Severe Pain (Pain Scale 7-10) 11/02/20 00:00 11/09/20 00:00 11/03/20 09:08 Levetiracetam 100 ml @ 400 mls/hr Q24H IVPB 11/02/20 09:00 01/31/21 08:59 11/04/20 09:04 Ondansetron HCl (Zofran) 4 mg Q4H PRN IVP Nausea & Vomiting 11/02/20 00:00 12/02/20 00:00 Pantoprazole (Protonix) 40 mg DAILY IVP 11/02/20 09:00 12/02/20 08:59 11/04/20 09:04 Polyethylene Glycol (Miralax) 17 gm BEDTIME ORAL 11/02/20 21:00 12/02/20 20:59 11/02/20 20:28 Laboratory Tests 11/04/20 05:40: White Blood Count 6.8, Red Blood Count 3.87L, Hemoglobin 11.7L, Hematocrit 34.2L , Mean Corpuscular Volume 88, Mean Corpuscular Hemoglobin 30.2, Mean Corpuscular Hemoglobin Concent 34.1, Red Cell Distribution Width 12.5, Platelet Count 184, Mean Platelet Volume 7.8, Neutrophils (%) (Auto) 66.6, Lymphocytes (%) (Auto) 19.5L, Monocytes (%) (Auto) 9.2, Eosinophils (%) (Auto) 4.1H, Basophils (%) (Auto) 0.5, Lipase 283, CA 19-9 Antigen [Pending] Height (Feet): 5 Height (Inches): 11.00 Weight (Pounds): 155 General Appearance: no apparent distress, lethargic Cardiovascular: normal rate Respiratory/Chest: decreased breath sounds Abdomen: distended Jeremy Webb MD Nov 04, 2020 10:20
--- NOTE | 2020-11-04 11:18 | NUR ---
CASE MANAGEMENT:REVIEW 11/04/20 SI: PANCREATITIS. RENAL INSUFF 98.6 74 20 154/95 98% ON RA H/H-11.7/34.2 IS: PROTONIX PO Q12 LISINOPRIL PO QD FOLATE PO QD LOVENOX SQ QD IV KEPPRA Q24 IV DILAUDID Q6HRS PRN PAIN : MED/SURG STATUS DCP:FROM [facility]
[2020-11-04] MEDS: Lisinopril 2.5mg tab ORAL SCH (11:25)
[2020-11-04 12:00] VITALS: BP 152/95
--- NOTE | 2020-11-04 13:26 | General Progress Note ---
Subjective ROS Limited/Unobtainable: No Allergies: Coded Allergies: No Known Allergies (Unverified , 11/01/20) Objective Last 24 Hour Vital Signs Date Time Temp Pulse Resp B/P (MAP) Pulse Ox O2 Delivery O2 Flow Rate FiO2 11/04/20 11:25 154/95 11/04/20 09:00 Room Air 11/04/20 08:00 98.6 74 20 154/95 (114) 98 11/04/20 04:00 98.5 72 22 142/66 (91) 98 11/04/20 00:00 98.0 70 22 140/98 (112) 97 11/03/20 21:00 Room Air 11/03/20 20:00 98.2 65 20 144/97 (113) 99 11/03/20 16:00 97.9 73 18 138/86 (103) 97 Intake and Output 11/03/20 11/04/20 19:00 07:00 Intake Total 700 ml 875 ml Output Total 500 ml 750 ml Balance 200 ml 125 ml Intake Oral 800 ml IV Total 700 ml 75 ml Output Urine Total 500 ml 750 ml # Voids 2 Laboratory Tests 11/04/20 05:40: White Blood Count 6.8, Red Blood Count 3.87L, Hemoglobin 11.7L, Hematocrit 34.2L , Mean Corpuscular Volume 88, Mean Corpuscular Hemoglobin 30.2, Mean Corpuscular Hemoglobin Concent 34.1, Red Cell Distribution Width 12.5, Platelet Count 184, Mean Platelet Volume 7.8, Neutrophils (%) (Auto) 66.6, Lymphocytes (%) (Auto) 19.5L, Monocytes (%) (Auto) 9.2, Eosinophils (%) (Auto) 4.1H, Basophils (%) (Auto) 0.5, Lipase 283, CA 19-9 Antigen [Pending] Height (Feet): 5 Height (Inches): 11.00 Weight (Pounds): 155 General Appearance: no apparent distress EENT: normal ENT inspection Neck: supple Cardiovascular: normal rate Respiratory/Chest: decreased breath sounds Abdomen: normal bowel sounds, non tender, soft Extremities: non-tender Assessment/Plan Assessment/Plan: abd pain anemia RI constipation doubt pancreatitis RI anemia work up bowel regimen resume diet repeat labs replace folate neg stool ob will need EGD and colonoscopy most likely as out patient Destin Orellana MD Nov 04, 2020 13:26
[2020-11-04 16:00] VITALS: BP 143/96
--- NOTE | 2020-11-04 17:47 | NUR ---
INSURANCE REVIEWS/CLINICALS [facility] DEPT PH#[phone] FAX#[phone]
--- NOTE | 2020-11-04 19:19 | General Progress Note ---
Subjective Constitutional: Reports: no symptoms HEENT: Reports: no symptoms Cardiovascular: Reports: no symptoms Respiratory: Reports: no symptoms Gastrointestinal/Abdominal: Reports: no symptoms Genitourinary: Reports: no symptoms Neurologic/Psychiatric: Reports: no symptoms Endocrine: Reports: no symptoms Hematologic/Lymphatic: Reports: no symptoms Allergies: Coded Allergies: No Known Allergies (Unverified , 11/01/20) Objective Last 24 Hour Vital Signs Date Time Temp Pulse Resp B/P (MAP) Pulse Ox O2 Delivery O2 Flow Rate FiO2 11/04/20 16:00 97.4 68 18 143/96 (112) 97 11/04/20 12:00 97.6 61 18 152/95 (114) 96 11/04/20 11:25 154/95 11/04/20 09:00 Room Air 11/04/20 08:00 98.6 74 20 154/95 (114) 98 11/04/20 04:00 98.5 72 22 142/66 (91) 98 11/04/20 00:00 98.0 70 22 140/98 (112) 97 11/03/20 21:00 Room Air 11/03/20 20:00 98.2 65 20 144/97 (113) 99 Intake and Output 11/03/20 11/04/20 19:00 07:00 Intake Total 700 ml 875 ml Output Total 500 ml 750 ml Balance 200 ml 125 ml Intake Oral 800 ml IV Total 700 ml 75 ml Output Urine Total 500 ml 750 ml # Voids 2 Laboratory Tests 11/04/20 05:40: White Blood Count 6.8, Red Blood Count 3.87L, Hemoglobin 11.7L, Hematocrit 34.2L , Mean Corpuscular Volume 88, Mean Corpuscular Hemoglobin 30.2, Mean Corpuscular Hemoglobin Concent 34.1, Red Cell Distribution Width 12.5, Platelet Count 184, Mean Platelet Volume 7.8, Neutrophils (%) (Auto) 66.6, Lymphocytes (%) (Auto) 19.5L, Monocytes (%) (Auto) 9.2, Eosinophils (%) (Auto) 4.1H, Basophils (%) (Auto) 0.5, Lipase 283, CA 19-9 Antigen [Pending] Height (Feet): 5 Height (Inches): 11.00 Weight (Pounds): 155 General Appearance: WD/WN, no apparent distress, alert EENT: normal ENT inspection Neck: supple Cardiovascular: normal rate, regular rhythm, no gallop/murmur, no JVD Respiratory/Chest: lungs clear, normal breath sounds, no respiratory distress, no accessory muscle use Abdomen: normal bowel sounds, non tender, soft, no organomegaly, no mass Extremities: non-tender Neurologic: alert, oriented x 3, responsive, aphasia Assessment/Plan Status Narrative Patient is awake alert afebrile hemodynamically stable while any pain medication today he tolerated feeding orally without difficulties handbag stitcher released the patient from in hospital service and follow-up of colonoscopy will be done as an outpatient service the plan is to discharge the patient back to the extended care facility where he will be seen as of 24 hours after discharge with the same hospital medication as a Elias Weinberg MD, MD Nov 04, 2020 19:19
--- NOTE | 2020-11-04 19:34 | NUR ---
NURSE HAND-OFF: Important Events on Shift:IV fluid Discontinued; Received discharge order from MD Nolasco to [facility] at the AM with [facility] Patient Status: Diet: Pending Orders: Pending Results/Labs: Pending MD notification: Latest Vital Signs: Temperature 97.4 , Pulse 68 , B/P 143 /96 , Respiratory Rate 18 , O2 SAT 97 , Room Air, O2 Flow Rate . Vital Sign Comment: Latest Foley Fall Score: 45 Fall Risk: High Risk Safety Measures: Call light Within Reach, Bed Alarm Zone 1, Side Rails Side Rails x3, Bed position Low and Locked. Fall Precautions: Yellow Socks Patient Fall Education Report given to .
--- NOTE | 2020-11-04 19:43 | NUR ---
NURSE NOTES: Patient in bed, awake, alert x 3. Able to make needs known. Garbled speech, makes gestures to make needs known. No complaint of pain or discomfort noted. Abdomen is soft and non distended. Skin is warm and dry to touch. Iv site noted. Bed in low and locked position. Provided safe environment. Provided safe environment. Call light is at bedside. Will continue plan of care.
[2020-11-04 20:00] VITALS: BP 155/97
[2020-11-04] MEDS: Allopurinol 100mg Tab ORAL SCH (20:10)
[2020-11-04] MEDS: Miralax 17gm pkt ORAL SCH (20:10)
[2020-11-05] VITALS: BP 142/90
[2020-11-05 04:00] VITALS: BP 139/98
[2020-11-05 06:37] LABS: BASOPHILS % (AUTO) 0.5 % (0.0-2.0); EOSINOPHILS % (AUTO) 3.9 % (0.0-3.0); HEMATOCRIT 34.7 % (42.0-52.0); HEMOGLOBIN 11.8 G/DL (14.2-18.0); LYMPHOCYTES % (AUTO) 20.2 % (20.0-45.0); MEAN CORPUSCULAR VOLUME 88 FL (80-99); MONOCYTES % (AUTO) 8.7 % (1.0-10.0); NEUTROPHILS % (AUTO) 66.7 % (45.0-75.0); PLATELET COUNT 203 K/UL (150-450); RED BLOOD COUNT 3.95 M/UL (4.70-6.10); WHITE BLOOD COUNT 6.6 K/UL (4.8-10.8)
--- NOTE | 2020-11-05 06:45 | Hematology/Onc Progress Note ---
Assessment/Plan Assessment/Plan Assessment / Recs # Anemia of chronic disease --> hgb 10.8->10.9-->11.7 --> no hemolysis is noted --> anemia panel order as needed --> smear has been reviewed # Abdominal pain r/o pancreatitis --> IVfs --> per gi, surg --> imaging noted -> lipase is high # Renal insufficiency --> ivfs --> per renal # Pancreatitis -> supportive care # Dvt ppx lovenox sq Appreciate consultation and robyn RN Subjective HEENT: Denies: no symptoms, eye pain, blurred vision, tearing, double vision, ear pain, ear discharge, nose pain, nose congestion, throat pain, throat swelling, mouth pain, mouth swelling, other Cardiovascular: Denies: no symptoms, chest pain, edema, irregular heart rate, lightheadedness, palpitations, syncope, other Respiratory: Denies: no symptoms, cough, shortness of breath, SOB with excertion, SOB at rest, sputum, wheezing, other Gastrointestinal/Abdominal: Denies: no symptoms, abdomen distended, abdominal pain, black stools, tarry stools, blood in stool, constipated, diarrhea, difficulty swallowing, nausea, poor appetite, poor fluid intake, rectal bleeding, vomiting, other Genitourinary: Denies: no symptoms, burning, discharge, frequency, flank pain, hematuria, incontinence, pain, urgency, other Neurologic/Psychiatric: Denies: no symptoms, anxiety, depressed, emotional problems, headache, numbness, paresthesia, pre-existing deficit, seizure, tingling, tremors, weakness, other Endocrine: Denies: no symptoms, excessive sweating, flushing, intolerance to cold, intolerance to heat, increased hunger, increased thirst, increased urine, unexplained weight gain, unexplained weight loss, other Hematologic/Lymphatic: Denies: no symptoms, anemia, easy bleeding, easy bruising, adenopathy, other Allergies: Coded Allergies: No Known Allergies (Unverified , 11/01/20) Subjective 2/3 meds reviewed, labs noted, no bleeding, feeling comfortable 2/4 labs are pending, meds noted, no bleeding, no complaints 2/5 labs noted, no bleeding, meds reviewed, no major events Objective Objective Current Medications Medications (Trade) Dose Ordered Sig/Ann Route PRN Reason Start Time Stop Time Status Last Admin Dose Admin Allopurinol (Zyloprim) 100 mg DAILY ORAL 11/04/20 19:15 12/04/20 19:14 11/04/20 20:10 Docusate Sodium (Colace) 100 mg TID ORAL 11/02/20 13:00 12/02/20 08:59 11/04/20 13:00 Enoxaparin Sodium (Lovenox) 40 mg DAILY SUBQ 11/02/20 09:00 01/31/21 08:59 11/04/20 09:08 Folic Acid (Folate) 3 mg DAILY ORAL 11/04/20 10:15 12/04/20 10:14 11/04/20 10:15 Hydromorphone HCl (Dilaudid) 1 mg Q6H PRN IVP Severe Pain (Pain Scale 7-10) 11/02/20 00:00 11/09/20 00:00 11/03/20 09:08 Levetiracetam 100 ml @ 400 mls/hr Q24H IVPB 11/02/20 09:00 01/31/21 08:59 11/04/20 09:04 Levothyroxine Sodium (Synthroid) 200 mcg DAILY@0630 ORAL 11/05/20 06:30 12/05/20 06:29 11/05/20 05:43 Lisinopril (ZestriL) 5 mg DAILY ORAL 11/04/20 11:00 12/04/20 10:59 11/04/20 11:25 Ondansetron HCl (Zofran) 4 mg Q4H PRN IVP Nausea & Vomiting 11/02/20 00:00 12/02/20 00:00 Pantoprazole (Protonix) 40 mg EVERY 12 HOURS ORAL 11/04/20 21:00 12/04/20 20:59 11/04/20 20:09 Polyethylene Glycol (Miralax) 17 gm BEDTIME ORAL 11/02/20 21:00 12/02/20 20:59 11/04/20 20:10 Last 24 Hour Vital Signs Date Time Temp Pulse Resp B/P (MAP) Pulse Ox O2 Delivery O2 Flow Rate FiO2 11/05/20 04:00 97.9 66 20 139/98 (112) 98 11/05/20 00:00 98.6 73 16 142/90 (107) 96 11/04/20 20:56 Room Air 11/04/20 20:00 98.0 70 20 155/97 (116) 96 11/04/20 16:00 97.4 68 18 143/96 (112) 97 11/04/20 12:00 97.6 61 18 152/95 (114) 96 11/04/20 11:25 154/95 11/04/20 09:00 Room Air 11/04/20 08:00 98.6 74 20 154/95 (114) 98 11/04/20 04:00 98.5 72 22 142/66 (91) 98 11/04/20 00:00 98.0 70 22 140/98 (112) 97 11/03/20 21:00 Room Air 11/03/20 20:00 98.2 65 20 144/97 (113) 99 11/03/20 16:00 97.9 73 18 138/86 (103) 97 11/03/20 12:00 97.7 64 18 126/78 (94) 99 11/03/20 09:38 97.9 11/03/20 09:00 Room Air 11/03/20 08:00 97.9 64 20 133/74 (93) 100 Intake and Output 11/04/20 11/05/20 19:00 07:00 Intake Total 700 ml Output Total 800 ml Balance 700 ml -800 ml IV Total 100 ml Other 600 ml Output Urine Total 800 ml Labs Test 11/02/20 12:15 11/03/20 03:40 11/03/20 05:47 11/04/20 05:40 Urine Color Pale yellow Urine Appearance Clear Urine pH 5 (4.5-8.0) Urine Specific [place] 1.015 (1.005-1.035) Urine Protein 2+ (NEGATIVE) Urine Glucose (UA) Negative (NEGATIVE) Urine Ketones Negative (NEGATIVE) Urine Blood 1+ (NEGATIVE) Urine Nitrite Negative (NEGATIVE) Urine Bilirubin Negative (NEGATIVE) Urine Urobilinogen Normal MG/DL (0.0-1.0) Urine Leukocyte Esterase Negative (NEGATIVE) Urine RBC 0-2 /HPF (0 - 0) Urine WBC 0 /HPF (0 - 0) Urine Squamous Epithelial Cells Occasional /LPF Urine Bacteria Occasional /HPF (NONE) Urine Random Sodium 82 mmol/L (20-110) Stool Occult Blood Negative (NEGATIVE) White Blood Count 7.8 K/UL (4.8-10.8) 6.8 K/UL (4.8-10.8) Red Blood Count 3.91 M/UL (4.70-6.10) 3.87 M/UL (4.70-6.10) Hemoglobin 11.8 G/DL (14.2-18.0) 11.7 G/DL (14.2-18.0) Hematocrit 35.1 % (42.0-52.0) 34.2 % (42.0-52.0) Mean Corpuscular Volume 90 FL (80-99) 88 FL (80-99) Mean Corpuscular Hemoglobin 30.1 PG (27.0-31.0) 30.2 PG (27.0-31.0) Mean Corpuscular Hemoglobin Concent 33.5 G/DL (32.0-36.0) 34.1 G/DL (32.0-36.0) Red Cell Distribution Width 12.5 % (11.6-14.8) 12.5 % (11.6-14.8) Platelet Count 202 K/UL (150-450) 184 K/UL (150-450) Mean Platelet Volume 7.5 FL (6.5-10.1) 7.8 FL (6.5-10.1) Neutrophils (%) (Auto) 74.2 % (45.0-75.0) 66.6 % (45.0-75.0) Lymphocytes (%) (Auto) 14.8 % (20.0-45.0) 19.5 % (20.0-45.0) Monocytes (%) (Auto) 6.9 % (1.0-10.0) 9.2 % (1.0-10.0) Eosinophils (%) (Auto) 3.7 % (0.0-3.0) 4.1 % (0.0-3.0) Basophils (%) (Auto) 0.4 % (0.0-2.0) 0.5 % (0.0-2.0) Sodium Level 135 MMOL/L (136-145) Potassium Level 4.7 MMOL/L (3.5-5.1) Chloride Level 101 MMOL/L (98-107) Carbon Dioxide Level 24 MMOL/L (21-32) Anion Gap 10 mmol/L (5-15) Blood Urea Nitrogen 36 mg/dL (7-18) Creatinine 2.4 MG/DL (0.55-1.30) Estimat Glomerular Filtration Rate 28.4 mL/min (>60) Glucose Level 89 MG/DL (74-106) Hemoglobin A1c 6.0 % (4.3-6.0) Uric Acid 8.7 MG/DL (2.6-7.2) Calcium Level 8.9 MG/DL (8.5-10.1) Phosphorus Level 3.6 MG/DL (2.5-4.9) Magnesium Level 1.9 MG/DL (1.8-2.4) Iron Level 55 ug/dL (50-175) Total Iron Binding Capacity 242 ug/dL (250-450) Percent Iron Saturation 23 % (15-50) Unsaturated Iron Binding 187 ug/dL (112-346) Ferritin 104 NG/ML (8-388) Total Bilirubin 0.3 MG/DL (0.2-1.0) Gamma Glutamyl Transpeptidase 165 U/L (5-85) Aspartate Amino Transf (AST/SGOT) 24 U/L (15-37) Alanine Aminotransferase (ALT/SGPT) 53 U/L (12-78) Alkaline Phosphatase 107 U/L (46-116) Lactate Dehydrogenase 145 U/L (81-234) Total Creatine Kinase 383 U/L (26-308) C-Reactive Protein, Quantitative < 0.4 mg/dL (0.00-0.90) Pro-B-Type Natriuretic Peptide 419 pg/mL (0-125) Total Protein 6.6 G/DL (6.4-8.2) Albumin 3.4 G/DL (3.4-5.0) Globulin 3.2 g/dL Albumin/Globulin Ratio 1.1 (1.0-2.7) Triglycerides Level 116 MG/DL (30-150) Cholesterol Level 126 MG/DL (< 200) LDL Cholesterol 67 mg/dL (<100) HDL Cholesterol 40 MG/DL (40-60) Cholesterol/HDL Ratio 3.2 (3.3-4.4) Amylase Level 105 U/L (25-115) Lipase 311 U/L (73-393) 283 U/L (73-393) Carcinoembryonic Antigen 4.6 ng/mL (0.0-4.7) Vitamin B12 Level 435 PG/ML (193-986) Folate 4.1 NG/ML (8.6-58.9) Thyroid Stimulating Hormone (TSH) 0.235 uiU/mL (0.358-3.740) Test 11/05/20 05:45 Height (Feet): 5 Height (Inches): 11.00 Weight (Pounds): 155 Objective PE Sp02 EP Interpretation: reviewed, normal General Appearance: no apparent distress, alert, GCS 15, non-toxic Head: normocephalic, atraumatic Eyes: bilateral eye normal inspection, bilateral eye PERRL ENT: hearing grossly normal, normal pharynx, no angioedema Neck: full range of motion, supple/symm/no masses Respiratory: chest non-tender, lungs clear, normal breath sounds Cardiovascular: regular rate, rhythm, no edema Gastrointestinal: normal bowel sounds, soft, non-distended Rectal: deferred Genitourinary: normal inspection, no CVA tenderness Musculoskeletal: back normal Neurologic: alert, motor strength/tone normal Lymphatic: no adenopathy Zev Sorenson MD Nov 05, 2020 06:45
[2020-11-05 07:08] LABS: ALBUMIN 3.6 G/DL (3.4-5.0); ALBUMIN/GLOBULIN RATIO 1.1 (1.0-2.7); BILIRUBIN,TOTAL 0.5 MG/DL (0.2-1.0); CALCIUM 9.2 MG/DL (8.5-10.1); CREATININE 2.1 MG/DL (0.55-1.30); PHOSPHORUS 3.7 MG/DL (2.5-4.9); POTASSIUM 4.3 MMOL/L (3.5-5.1)
--- NOTE | 2020-11-05 07:27 | NUR ---
NURSE HAND-OFF: Important Events on Shift:WNL Patient Status: Diet: REG Pending Orders: Pending Results/Labs: Pending MD notification: Latest Vital Signs: Temperature 97.9 , Pulse 66 , B/P 139 /98 , Respiratory Rate 20 , O2 SAT 98 , Room Air, O2 Flow Rate . Vital Sign Comment: WNL Latest Foley Fall Score: 45 Fall Risk: High Risk Safety Measures: Call light Within Reach, Bed Alarm Zone 1, Side Rails Side Rails x3, Bed position Low and Locked. Fall Precautions: Yellow Socks Patient Fall Education Report given to ELVIS Padron.
--- NOTE | 2020-11-05 07:35 | NUR ---
NURSE NOTES: Handoff received from Da LEAL. Patient is awake and alert, no sings of acute distress noted, no repors of pain or discomfort at this time. Left Ac IV is intact and saline locked. Bed is low and locked, side rails up x2, call light is within reach.
[2020-11-05 08:00] VITALS: BP 152/90
[2020-11-05] MEDS: Allopurinol 100mg Tab ORAL SCH (08:39)
[2020-11-05] MEDS: levETIRAcetam 1,000mg/NS100ml 100 ML IVPB SCH (08:39)
[2020-11-05] MEDS: Docusate 100mg cap ORAL SCH ×3 (08:40→17:06)
[2020-11-05] MEDS: Enoxaparin 40mg Inj SUBQ SCH (08:41)
[2020-11-05] MEDS: Lisinopril 2.5mg tab ORAL SCH ×2 (08:44→21:35)
--- NOTE | 2020-11-05 08:55 | NUR ---
CASE MANAGEMENT:REVIEW 11/05/20 SI: PANCREATITIS. RENAL INSUFF 97.9 66 20 152/90 98% ON RA H/H-11.8/34.7 BUN+28 CR+2.1 IS: PROTONIX PO Q12 LISINOPRIL PO QD FOLATE PO QD LOVENOX SQ QD IV KEPPRA Q24 IV DILAUDID Q6HRS PRN PAIN : MED/SURG STATUS DCP:FROM [facility] CONV PLAN: DISCHARGE BACK TO [facility]
--- NOTE | 2020-11-05 09:47 | Nephrology Progress Note ---
Assessment/Plan Problem List: (1) Renal failure (ARF), acute on chronic (2) Dehydration (3) Electrolyte imbalance (4) Anemia Assessment Renal failure, most likely acute on chronic Partly dehydration Abdominal pain, questionable pancreatitis Anemia History of hypertension History of CVA/TIA, aphasia Plan November 05: Labs reviewed. Monitor serum sodium. Adjust blood pressure medication. Continue per consultants. November 04: No chemistry panel done today. Patient taking p.o. Change Protonix to p.o. Folic acid supplement. DC IV. Lisinopril for high blood pressure. Continue per consultants. Previously: Check urine analysis Slow hydration Avoid nephrotoxic's Monitor renal parameters Anemia work-up Per orders Subjective ROS Limited/Unobtainable: No Constitutional: Reports: malaise Objective Objective Last 24 Hour Vital Signs Date Time Temp Pulse Resp B/P (MAP) Pulse Ox O2 Delivery O2 Flow Rate FiO2 11/05/20 08:44 152/90 11/05/20 04:00 97.9 66 20 139/98 (112) 98 11/05/20 00:00 98.6 73 16 142/90 (107) 96 11/04/20 20:56 Room Air 11/04/20 20:00 98.0 70 20 155/97 (116) 96 11/04/20 16:00 97.4 68 18 143/96 (112) 97 11/04/20 12:00 97.6 61 18 152/95 (114) 96 11/04/20 11:25 154/95 Intake and Output 11/04/20 11/05/20 19:00 07:00 Intake Total 700 ml Output Total 800 ml Balance 700 ml -800 ml IV Total 100 ml Other 600 ml Output Urine Total 800 ml Current Medications Medications (Trade) Dose Ordered Sig/Ann Route PRN Reason Start Time Stop Time Status Last Admin Dose Admin Allopurinol (Zyloprim) 100 mg DAILY ORAL 11/04/20 19:15 12/04/20 19:14 11/05/20 08:39 Docusate Sodium (Colace) 100 mg TID ORAL 11/02/20 13:00 12/02/20 08:59 11/05/20 08:40 Enoxaparin Sodium (Lovenox) 40 mg DAILY SUBQ 11/02/20 09:00 01/31/21 08:59 11/05/20 08:41 Folic Acid (Folate) 3 mg DAILY ORAL 11/04/20 10:15 12/04/20 10:14 11/05/20 08:40 Hydromorphone HCl (Dilaudid) 1 mg Q6H PRN IVP Severe Pain (Pain Scale 7-10) 11/02/20 00:00 11/09/20 00:00 11/03/20 09:08 Levetiracetam 100 ml @ 400 mls/hr Q24H IVPB 11/02/20 09:00 01/31/21 08:59 11/05/20 08:39 Levothyroxine Sodium (Synthroid) 200 mcg DAILY@0630 ORAL 11/05/20 06:30 12/05/20 06:29 11/05/20 05:43 Lisinopril (ZestriL) 5 mg DAILY ORAL 11/04/20 11:00 12/04/20 10:59 11/05/20 08:44 Ondansetron HCl (Zofran) 4 mg Q4H PRN IVP Nausea & Vomiting 11/02/20 00:00 12/02/20 00:00 Pantoprazole (Protonix) 40 mg EVERY 12 HOURS ORAL 11/04/20 21:00 12/04/20 20:59 11/05/20 08:39 Polyethylene Glycol (Miralax) 17 gm BEDTIME ORAL 11/02/20 21:00 12/02/20 20:59 11/04/20 20:10 Laboratory Tests 11/05/20 05:45: White Blood Count 6.6, Red Blood Count 3.95L, Hemoglobin 11.8L, Hematocrit 34.7L , Mean Corpuscular Volume 88, Mean Corpuscular Hemoglobin 29.9, Mean Corpuscular Hemoglobin Concent 34.1, Red Cell Distribution Width 12.0, Platelet Count 203, Mean Platelet Volume 8.0, Neutrophils (%) (Auto) 66.7, Lymphocytes (%) (Auto) 20.2, Monocytes (%) (Auto) 8.7, Eosinophils (%) (Auto) 3.9H, Basophils (%) (Auto) 0.5, Sodium Level 132L, Potassium Level 4.3, Chloride Level 99, Carbon Dioxide Level 26, Anion Gap 7, Blood Urea Nitrogen 28H, Creatinine 2.1H, Estimat Glomerular Filtration Rate 33.1, Glucose Level 89, Uric Acid 8.0H, Calcium Level 9.2, Phosphorus Level 3.7, Magnesium Level 1.8, Total Bilirubin 0.5, Aspartate Amino Transf (AST/SGOT) 19, Alanine Aminotransferase (ALT/SGPT) 40, Alkaline Phosphatase 113, C-Reactive Protein, Quantitative 0.7, Pro-B-Type Natriuretic Peptide 337H, Total Protein 7.0, Albumin 3.6, Globulin 3.4, Albumin/Globulin Ratio 1.1, Free Thyroxine 0.88, Free Triiodothyronine 1.0L Height (Feet): 5 Height (Inches): 11.00 Weight (Pounds): 155 General Appearance: no apparent distress Cardiovascular: normal rate Respiratory/Chest: decreased breath sounds Abdomen: distended Jeremy Webb MD Nov 05, 2020 09:47
--- NOTE | 2020-11-05 10:09 | NUR ---
*-*DISCHARGE PLANNED*-* PATIENT HAS BEEN ACCEPTED AND WILL BE DISCHARGED BACK TO: [facility] P: [phone] FOR NURSE TO NURSE REPORT ROOM# 12.[facility] TRANSP[facility] SET FOR 12PM S/W [facility] [id number]. PLACED A CALL TO PATIENTS KYLE, NO ANSWER, LEFT VOICE MESSAGE IN REGARDS TO DISCHARGE PLAN.
--- NOTE | 2020-11-05 11:15 | NUR ---
NURSE NOTES: Spoke with Clary at [facility], she stated that the patient needed a COVID test before transfer. RN will follow up with ANU. Addendum: 11/05/20 at 1141 by Vito Pedro RN RN Alma Rosa BRENNAN stated she will contact [facility] about the patient's COVID test
[2020-11-05 12:00] VITALS: BP 154/88
--- NOTE | 2020-11-05 12:55 | General Progress Note ---
Subjective ROS Limited/Unobtainable: Yes Allergies: Coded Allergies: No Known Allergies (Unverified , 11/01/20) Objective Last 24 Hour Vital Signs Date Time Temp Pulse Resp B/P (MAP) Pulse Ox O2 Delivery O2 Flow Rate FiO2 11/05/20 09:00 Room Air 11/05/20 08:44 152/90 11/05/20 08:00 98.6 64 18 152/90 (110) 99 11/05/20 04:00 97.9 66 20 139/98 (112) 98 11/05/20 00:00 98.6 73 16 142/90 (107) 96 11/04/20 20:56 Room Air 11/04/20 20:00 98.0 70 20 155/97 (116) 96 11/04/20 16:00 97.4 68 18 143/96 (112) 97 Intake and Output 11/04/20 11/05/20 19:00 07:00 Intake Total 700 ml Output Total 800 ml Balance 700 ml -800 ml IV Total 100 ml Other 600 ml Output Urine Total 800 ml Laboratory Tests 11/05/20 05:45: White Blood Count 6.6, Red Blood Count 3.95L, Hemoglobin 11.8L, Hematocrit 34.7L , Mean Corpuscular Volume 88, Mean Corpuscular Hemoglobin 29.9, Mean Corpuscular Hemoglobin Concent 34.1, Red Cell Distribution Width 12.0, Platelet Count 203, Mean Platelet Volume 8.0, Neutrophils (%) (Auto) 66.7, Lymphocytes (%) (Auto) 20.2, Monocytes (%) (Auto) 8.7, Eosinophils (%) (Auto) 3.9H, Basophils (%) (Au to) 0.5, Sodium Level 132L, Potassium Level 4.3, Chloride Level 99, Carbon Dioxide Level 26, Anion Gap 7, Blood Urea Nitrogen 28H, Creatinine 2.1H, Estimat Glomerular Filtration Rate 33.1, Glucose Level 89, Uric Acid 8.0H, Calcium Level 9.2, Phosphorus Level 3.7, Magnesium Level 1.8, Total Bilirubin 0.5, Aspartate Amino Transf (AST/SGOT) 19, Alanine Aminotransferase (ALT/SGPT) 40, Alkaline Phosphatase 113, C-Reactive Protein, Quantitative 0.7, Pro-B-Type Natriuretic Peptide 337H, Total Protein 7.0, Albumin 3.6, Globulin 3.4, Albumin/Globulin Ratio 1.1, Free Thyroxine 0.88, Free Triiodothyronine 1.0L Height (Feet): 5 Height (Inches): 11.00 Weight (Pounds): 155 General Appearance: no apparent distress EENT: normal ENT inspection Neck: supple Cardiovascular: normal rate Respiratory/Chest: decreased breath sounds Abdomen: normal bowel sounds, non tender, soft Extremities: non-tender Assessment/Plan Assessment/Plan: abd pain anemia RI constipation doubt pancreatitis RI anemia work up bowel regimen resume diet repeat labs replace folate neg stool ob will need EGD and colonoscopy most likely as out patient Destin Orellana MD Nov 05, 2020 12:55
--- NOTE | 2020-11-05 14:00 | NUR ---
NURSE NOTES: PCR Covid Swab done and patient moved to 409-2.
--- NOTE | 2020-11-05 14:02 | NUR ---
INSURANCE REVIEWS/CLINICALS [facility] DEPT PH#[phone] FAX#[phone]
[2020-11-05 16:00] VITALS: BP 138/98
--- NOTE | 2020-11-05 19:08 | NUR ---
NURSE HAND-OFF: Important Events on Shift:[COVID swab] Patient Status: stable Diet: Regular Pending Orders: Pending Results/Labs: Pending MD notification: Latest Vital Signs: Temperature 98.9 , Pulse 79 , B/P 138 /98 , Respiratory Rate 20 , O2 SAT 99 , Room Air, O2 Flow Rate . Vital Sign Comment: stable Latest Foley Fall Score: 45 Fall Risk: High Risk Safety Measures: Call light Within Reach, Bed Alarm Zone 1, Side Rails Side Rails x3, Bed position Low and Locked. Fall Precautions: Yellow Socks Patient Fall Education Report given to Mya LEAL.
[2020-11-05 20:00] VITALS: BP 133/93
--- NOTE | 2020-11-05 20:00 | NUR ---
NURSE NOTES: RECEIVED PATIENT SITTING UP AT SIDE OF BED WEARING STREET CLOTHES, NON VERBAL, COMPLIANT, ABLE TO FOLLOW SIMPLE COMMANDS, MOST NEEDS ANTICIPATED AND MET BY NURSING STAFF, NO SIGNS AND SYMPTOMS OF ACUTE CARDIO RESPIRATORY DISTRESS/SHORTNESS OF BREATH. ISOLATION PRECAUTIONS ONGOING FOR PUI OF 11/05/20. IV INTACT TO LEFT AC/GAUGE 22, SALINE LOCK, NO REDNESS/SWELLING NOTED. NO REPORT OF GI DISTRESS, NO N/V/D. BED IN LOWEST POSITION FOR SAFETY, FREQUENT ROUNDING FOR SAFETY/NEEDS, CONTINUE WITH CURRENT PLAN OF CARE. POSSIBLE EGD/COLONOSCOPY OUT PATIENT PER GI. NAD.
[2020-11-05] MEDS: Miralax 17gm pkt ORAL SCH (21:34)
[2020-11-06] VITALS: BP 139/79
[2020-11-06 04:00] VITALS: BP 122/82
[2020-11-06 06:18] LABS: BASOPHILS % (AUTO) 0.6 % (0.0-2.0); EOSINOPHILS % (AUTO) 4.6 % (0.0-3.0); HEMATOCRIT 35.4 % (42.0-52.0); LYMPHOCYTES % (AUTO) 21.1 % (20.0-45.0); MEAN CORPUSCULAR VOLUME 88 FL (80-99); MONOCYTES % (AUTO) 11.8 % (1.0-10.0); NEUTROPHILS % (AUTO) 61.9 % (45.0-75.0); PLATELET COUNT 183 K/UL (150-450); RED BLOOD COUNT 4.04 M/UL (4.70-6.10); RED CELL DISTRIBUTION WIDTH 12.2 % (11.6-14.8); WHITE BLOOD COUNT 6.3 K/UL (4.8-10.8)
--- NOTE | 2020-11-06 06:58 | NUR ---
NURSE HAND-OFF: Important Events on Shift:[UNEVENTFUL NIGHT] Patient Status: [STABLE, SLEPT WELL THROUGHOUT THE NIGHT. NAD.] Diet: [REGULAR] Pending Orders: [AM LABS] Pending Results/Labs:[DISCHARGE PLAN TO [place] PENDING COVID RESULTS-EGD/COLONOSCOPY MOST LIKELY OUT PATIENT PER GI] Pending MD notification:[] Latest Vital Signs: Temperature 97.6 , Pulse 69 , B/P 122 /82 , Respiratory Rate 18 , O2 SAT 98 , Room Air, O2 Flow Rate . Vital Sign Comment: [STABLE, AFEBRILE] Latest Foley Fall Score: 60 Fall Risk: High Risk Safety Measures: Call light Within Reach, Bed Alarm Zone 1, Side Rails Side Rails x3, Bed position Low and Locked. Fall Precautions: Yellow Socks Patient Fall Education Report given to [ELVIS BROTHERS].
[2020-11-06 08:00] VITALS: BP 137/92
--- NOTE | 2020-11-06 08:49 | General Progress Note ---
Subjective ROS Limited/Unobtainable: No Allergies: Coded Allergies: No Known Allergies (Unverified , 11/01/20) Objective Last 24 Hour Vital Signs Date Time Temp Pulse Resp B/P (MAP) Pulse Ox O2 Delivery O2 Flow Rate FiO2 11/06/20 08:00 97.3 68 19 137/92 (107) 98 11/06/20 04:00 97.6 69 18 122/82 (95) 98 11/06/20 00:00 97.9 68 18 139/79 (99) 98 11/05/20 21:35 147/92 11/05/20 21:00 Room Air 11/05/20 20:00 98.6 77 18 133/93 (106) 97 11/05/20 16:00 98.9 79 20 138/98 (111) 99 11/05/20 12:00 98.6 76 20 154/88 (110) 99 11/05/20 09:00 Room Air Intake and Output 11/05/20 11/06/20 19:00 07:00 Intake Total 900 ml 480 ml Output Total 850 ml 600 ml Balance 50 ml -120 ml Intake Oral 900 ml 480 ml Output Urine Total 850 ml 600 ml Laboratory Tests 11/06/20 05:30: White Blood Count 6.3, Red Blood Count 4.04L, Hemoglobin 12.0L, Hematocrit 35.4L , Mean Corpuscular Volume 88, Mean Corpuscular Hemoglobin 29.6, Mean Corpuscular Hemoglobin Concent 33.7, Red Cell Distribution Width 12.2, Platelet Count 183, Mean Platelet Volume 7.6, Neutrophils (%) (Auto) 61.9, Lymphocytes (%) (Auto) 21.1, Monocytes (%) (Auto) 11.8H, Eosinophils (%) (Auto) 4.6H, Basophils (%) (Auto) 0.6 Height (Feet): 5 Height (Inches): 11.00 Weight (Pounds): 155 General Appearance: no apparent distress EENT: normal ENT inspection Neck: supple Cardiovascular: normal rate Respiratory/Chest: decreased breath sounds Abdomen: normal bowel sounds, non tender, soft Extremities: non-tender Assessment/Plan Assessment/Plan: abd pain anemia RI constipation doubt pancreatitis RI anemia work up bowel regimen resume diet repeat labs replace folate neg stool ob will need EGD and colonoscopy most likely as out patient Destin Orellana MD Nov 06, 2020 08:49
[2020-11-06] MEDS: Enoxaparin 40mg Inj SUBQ SCH (09:04)
[2020-11-06] MEDS: levETIRAcetam 1,000mg/NS100ml 100 ML IVPB SCH (09:04)
[2020-11-06] MEDS: Docusate 100mg cap ORAL SCH ×4 (09:04→17:51)
[2020-11-06] MEDS: Lisinopril 2.5mg tab ORAL SCH ×2 (09:05→21:59)
[2020-11-06] MEDS: Allopurinol 100mg Tab ORAL SCH (09:06)
[2020-11-06 12:00] VITALS: BP 154/95
--- NOTE | 2020-11-06 14:36 | NUR ---
MUD JACK OPERATOR NOTES PT DISCHARGE IS PENDING COVID RESULTS. NO COVID RESULTS AVAILABLE AT THIS TIME.
--- NOTE | 2020-11-06 15:15 | Surgery Progress Note ---
Surgery Progress Note Subjective Additional Comments improving no n/v labs improved lip wnl afebrile exam stabl e Objective Last 24 Hour Vital Signs Date Time Temp Pulse Resp B/P (MAP) Pulse Ox O2 Delivery O2 Flow Rate FiO2 11/06/20 12:00 97.6 68 19 154/95 (114) 95 11/06/20 09:05 137/92 11/06/20 09:00 Room Air 11/06/20 08:00 97.3 68 19 137/92 (107) 98 11/06/20 04:00 97.6 69 18 122/82 (95) 98 11/06/20 00:00 97.9 68 18 139/79 (99) 98 11/05/20 21:35 147/92 11/05/20 21:00 Room Air 11/05/20 20:00 98.6 77 18 133/93 (106) 97 11/05/20 16:00 98.9 79 20 138/98 (111) 99 I&O Intake and Output 11/05/20 11/06/20 19:00 07:00 Intake Total 900 ml 480 ml Output Total 850 ml 600 ml Balance 50 ml -120 ml Intake Oral 900 ml 480 ml Output Urine Total 850 ml 600 ml Dressing: other Wound: other Cardiovascular: RSR Respiratory: decreased breath sounds Abdomen: soft, flat, non-tender, present bowel sounds, non-distended Extremities: no edema, no tenderness, no cyanosis Laboratory Tests Test 11/06/20 05:30 White Blood Count 6.3 K/UL (4.8-10.8) Red Blood Count 4.04 M/UL (4.70-6.10) L Hemoglobin 12.0 G/DL (14.2-18.0) L Hematocrit 35.4 % (42.0-52.0) L Mean Corpuscular Volume 88 FL (80-99) Mean Corpuscular Hemoglobin 29.6 PG (27.0-31.0) Mean Corpuscular Hemoglobin Concent 33.7 G/DL (32.0-36.0) Red Cell Distribution Width 12.2 % (11.6-14.8) Platelet Count 183 K/UL (150-450) Mean Platelet Volume 7.6 FL (6.5-10.1) Neutrophils (%) (Auto) 61.9 % (45.0-75.0) Lymphocytes (%) (Auto) 21.1 % (20.0-45.0) Monocytes (%) (Auto) 11.8 % (1.0-10.0) H Eosinophils (%) (Auto) 4.6 % (0.0-3.0) H Basophils (%) (Auto) 0.6 % (0.0-2.0) Plan Problems: (1) Renal insufficiency (2) Pancreatitis (3) Abdominal pain Assessment & Plan: 55M abd pain labs noted ct reviewed exam benign no acute surgical intervention bowel regimen gi input will follow with exam and recs thank you ABDOMEN: Liver: Unremarkable. No mass. Gallbladder and bile ducts: Unremarkable. No calcified stones. No ductal dilation. Pancreas: Unremarkable. No mass. No ductal dilation. Spleen: Unremarkable. No splenomegaly. Adrenals: Unremarkable. No mass. Kidneys and ureters: Small low-attenuation structures within the right kidney, some too small to characterize and measuring less than 7 mm, largest seen within the mid lower pole measuring 1.8 x 1.7 cm compatible with a simple cyst. The smaller structures are statistically consistent with cyst. Normal left kidney. Stomach and bowel: Increased fecal debris within the colon suggestive of constipation. No obstruction. No mucosal thickening. PELVIS: Appendix: Normal appendix. Bladder: Unremarkable. No mass. Reproductive: Unremarkable as visualized. ABDOMEN and PELVIS: Intraperitoneal space: Unremarkable. No free air. No significant fluid collection. Bones/joints: Mild degenerative disease of the spine. No acute fracture. No dislocation. Soft tissues: Small bilateral fat-containing inguinal hernias. Vasculature: Unremarkable. No abdominal aortic aneurysm. Lymph nodes: Unremarkable. No enlarged lymph nodes. IMPRESSION: 1. Constipation. No acute appendicitis or bowel obstruction. 2. Nonspecific small bilateral renal cysts. If indicated, this can be further confirmed with ultrasound of the kidneys the nonacute setting. DAILY ESTIMATED NEEDS: Needs based on cardiac, renal 71kg 25-30 kcals/kg 4444-2856 total kcals 1-1.5 g protein/kg 71-107 g total protein 25-30 mL/kg 2437-4362 total fluid mLs NUTRITION DIAGNOSIS: Self feeding difficulty r/t medical history, L side weakness, h/o craniotomy as evidenced by pt requires 1:1 feeds with all meals, CURRENT DIET: regular PO DIET RECOMMENDATIONS: Low Na diet/ texture per FITTINGS TIGHTENER ADDITIONAL RECOMMENDATIONS: 1) rec FITTINGS TIGHTENER eval for appropriate texture 2) Monitor renal status/ lytes, need for renal diet 3) rec q8 bedside BG checks 4) Calibrated bedscale wts 5) Add Glucerna 1 tetra qdaily (250 kcal/10g pro) Sandro Sunshine Nov 06, 2020 15:15
[2020-11-06 16:00] VITALS: BP 135/85
--- NOTE | 2020-11-06 16:54 | NUR ---
CASE MANAGEMENT:REVIEW 11/06/20 SI: PANCREATITIS. RENAL INSUFF VS: T 97.6 HR 68 RR 19 B/P 154/95 SATS 95% ON RA LABS: NO LABS TODAY IS: PROTONIX PO Q12 LISINOPRIL PO QD FOLATE PO QD LOVENOX SQ QD IV KEPPRA Q24 IV DILAUDID Q6HRS PRN PAIN : MED/SURG STATUS DCP:FROM [facility]
--- NOTE | 2020-11-06 17:59 | Nephrology Progress Note ---
Assessment/Plan Problem List: (1) Renal failure (ARF), acute on chronic (2) Dehydration (3) Electrolyte imbalance (4) Anemia Assessment Renal failure, most likely acute on chronic Partly dehydration Abdominal pain, questionable pancreatitis Anemia History of hypertension History of CVA/TIA, aphasia Plan November 06: Labs reviewed. Serum sodium 132. 500 mL Normal saline given. Continue to monitor electrolytes. Continue per consultants. November 05: Labs reviewed. Monitor serum sodium. Adjust blood pressure medication. Continue per consultants. November 04: No chemistry panel done today. Patient taking p.o. Change Protonix to p.o. Folic acid supplement. DC IV. Lisinopril for high blood pressure. Continue per consultants. Previously: Check urine analysis Slow hydration Avoid nephrotoxic's Monitor renal parameters Anemia work-up Per orders Subjective ROS Limited/Unobtainable: No Constitutional: Reports: malaise Objective Objective Last 24 Hour Vital Signs Date Time Temp Pulse Resp B/P (MAP) Pulse Ox O2 Delivery O2 Flow Rate FiO2 11/06/20 16:00 99.0 68 18 135/85 (102) 97 11/06/20 12:00 97.6 68 19 154/95 (114) 95 11/06/20 09:05 137/92 11/06/20 09:00 Room Air 11/06/20 08:00 97.3 68 19 137/92 (107) 98 11/06/20 04:00 97.6 69 18 122/82 (95) 98 11/06/20 00:00 97.9 68 18 139/79 (99) 98 11/05/20 21:35 147/92 11/05/20 21:00 Room Air 11/05/20 20:00 98.6 77 18 133/93 (106) 97 Intake and Output 11/05/20 11/06/20 19:00 07:00 Intake Total 900 ml 480 ml Output Total 850 ml 600 ml Balance 50 ml -120 ml Intake Oral 900 ml 480 ml Output Urine Total 850 ml 600 ml Current Medications Medications (Trade) Dose Ordered Sig/Ann Route PRN Reason Start Time Stop Time Status Last Admin Dose Admin Allopurinol (Zyloprim) 100 mg DAILY ORAL 11/04/20 19:15 12/04/20 19:14 11/06/20 09:06 Docusate Sodium (Colace) 100 mg TID ORAL 11/02/20 13:00 3/4/21 08:59 11/06/20 17:51 Enoxaparin Sodium (Lovenox) 40 mg DAILY SUBQ 11/02/20 09:00 01/31/21 08:59 11/06/20 09:04 Folic Acid (Folate) 3 mg DAILY ORAL 11/04/20 10:15 12/04/20 10:14 11/06/20 09:08 Hydromorphone HCl (Dilaudid) 1 mg Q6H PRN IVP Severe Pain (Pain Scale 7-10) 11/02/20 00:00 11/09/20 00:00 11/03/20 09:08 Levetiracetam 100 ml @ 400 mls/hr Q24H IVPB 11/02/20 09:00 01/31/21 08:59 11/06/20 09:04 Levothyroxine Sodium (Synthroid) 200 mcg DAILY@0630 ORAL 11/05/20 06:30 12/05/20 06:29 11/06/20 05:52 Lisinopril (ZestriL) 5 mg Q12HR ORAL 11/05/20 21:00 12/05/20 20:59 11/06/20 09:05 Ondansetron HCl (Zofran) 4 mg Q4H PRN IVP Nausea & Vomiting 11/02/20 00:00 12/02/20 00:00 Pantoprazole (Protonix) 40 mg EVERY 12 HOURS ORAL 11/04/20 21:00 12/04/20 20:59 11/06/20 09:06 Polyethylene Glycol (Miralax) 17 gm BEDTIME ORAL 11/02/20 21:00 12/02/20 20:59 11/05/20 21:34 Laboratory Tests 11/06/20 05:30: White Blood Count 6.3, Red Blood Count 4.04L, Hemoglobin 12.0L, Hematocrit 35.4L , Mean Corpuscular Volume 88, Mean Corpuscular Hemoglobin 29.6, Mean Corpuscular Hemoglobin Concent 33.7, Red Cell Distribution Width 12.2, Platelet Count 183, Mean Platelet Volume 7.6, Neutrophils (%) (Auto) 61.9, Lymphocytes (%) (Auto) 21.1, Monocytes (%) (Auto) 11.8H, Eosinophils (%) (Auto) 4.6H, Basophils (%) (A uto) 0.6 Height (Feet): 5 Height (Inches): 11.00 Weight (Pounds): 155 General Appearance: no apparent distress Cardiovascular: normal rate Respiratory/Chest: decreased breath sounds Abdomen: soft Jeremy Webb MD Nov 06, 2020 17:59
--- NOTE | 2020-11-06 19:52 | NUR ---
NURSE NOTES: RECEIVED PATIENT LYING IN BED, APHASIC, ABLE TO RESPOND TO YES/NO QUESTIONS BY NODDING HIS HEAD/THUMBS UP, RIGHT SIDE WEAKNESS, PATIENT REMAIN IN STREET CLOTHES. MOST NEEDS ANTICIPATED AND MET BY NURSING STAFF, IV INTACT TO LEFT FOREARM/GAUGE 22, NO REDNESS/SWELLING NOTED TO SITE, SALINE LOCK, NO SIGNS AND SYMPTOMS OF ACUTE CARDIO RESPIRATORY DISTRESS/SHORTNESS OF BREATH, DENIES CHEST PAIN, NO PERIPHERAL EDEMA NOTED. SIDE RAILS UPX3, BED IND LOWEST POSITION FOR SAFETY, CALL LIGHT WITHIN REACH AT ALL TIMES. CONTINUE WITH CURRENT PLAN OF CARE. NAD.
[2020-11-06 20:00] VITALS: BP 153/93
[2020-11-06] MEDS: Miralax 17gm pkt ORAL SCH (21:58)
[2020-11-07] VITALS: BP 143/84
[2020-11-07 04:00] VITALS: BP 143/72
--- NOTE | 2020-11-07 06:32 | NUR ---
NURSE HAND-OFF: Important Events on Shift:[UNEVENTFUL NIGHT, PLAN TO DC TO [facility] PENDING COVID 19 RESULT-EGD/COLONOSCOPY MOST LIKELY OUT PATIENT PER GI] Patient Status: [STABLE, AFEBRILE] Diet: [REGULAR] Pending Orders: [N/A] Pending Results/Labs:[] Pending MD notification:[] Latest Vital Signs: Temperature 98.0 , Pulse 78 , B/P 143 /72 , Respiratory Rate 18 , O2 SAT 98 , Room Air, O2 Flow Rate . Vital Sign Comment: [STABLE, AFEBRILE] Latest Foley Fall Score: 60 Fall Risk: High Risk Safety Measures: Call light Within Reach, Bed Alarm Zone 1, Side Rails Side Rails x3, Bed position Low and Locked. Fall Precautions: Yellow Socks Patient Fall Education Report given to [TE,RN].
--- NOTE | 2020-11-07 06:33 | Hematology/Onc Progress Note ---
Assessment/Plan Assessment/Plan Assessment / Recs # Anemia of chronic disease --> hgb 10.8->10.9-->11.7 --> no hemolysis is noted --> anemia panel order as needed --> smear has been reviewed # Abdominal pain r/o pancreatitis --> IVfs --> per gi, surg --> imaging noted -> lipase is high # Renal insufficiency --> ivfs --> per renal # Pancreatitis -> supportive care # Dvt ppx lovenox sq Appreciate consultation and robyn RN Subjective Allergies: Coded Allergies: No Known Allergies (Unverified , 11/01/20) All Systems: reviewed and negative except above Subjective 2/3 meds reviewed, labs noted, no bleeding, feeling comfortable 2/ labs are pending, meds noted, no bleeding, no complaints 2 labs noted, no bleeding, meds reviewed, no major events 11/07 labs reviewed, aphasic, meds noted, no bleeding, seen by renal Objective Objective Current Medications Medications (Trade) Dose Ordered Sig/Ann Route PRN Reason Start Time Stop Time Status Last Admin Dose Admin Allopurinol (Zyloprim) 100 mg DAILY ORAL 11/04/20 19:15 12/04/20 19:14 11/06/20 09:06 Docusate Sodium (Colace) 100 mg TID ORAL 11/02/20 13:00 12/02/20 08:59 11/06/20 17:51 Enoxaparin Sodium (Lovenox) 40 mg DAILY SUBQ 11/02/20 09:00 01/31/21 08:59 11/06/20 09:04 Folic Acid (Folate) 3 mg DAILY ORAL 11/04/20 10:15 12/04/20 10:14 11/06/20 09:08 Hydromorphone HCl (Dilaudid) 1 mg Q6H PRN IVP Severe Pain (Pain Scale 7-10) 11/02/20 00:00 11/09/20 00:00 11/03/20 09:08 Levetiracetam 100 ml @ 400 mls/hr Q24H IVPB 11/02/20 09:00 01/31/21 08:59 11/06/20 09:04 Levothyroxine Sodium (Synthroid) 200 mcg DAILY@0630 ORAL 11/05/20 06:30 12/05/20 06:29 11/07/20 06:06 Lisinopril (ZestriL) 5 mg Q12HR ORAL 11/05/20 21:00 12/05/20 20:59 11/06/20 21:59 Ondansetron HCl (Zofran) 4 mg Q4H PRN IVP Nausea & Vomiting 11/02/20 00:00 12/02/20 00:00 Pantoprazole (Protonix) 40 mg EVERY 12 HOURS ORAL 11/04/20 21:00 12/04/20 20:59 11/06/20 21:59 Polyethylene Glycol (Miralax) 17 gm BEDTIME ORAL 11/02/20 21:00 12/02/20 20:59 11/06/20 21:58 Last 24 Hour Vital Signs Date Time Temp Pulse Resp B/P (MAP) Pulse Ox O2 Delivery O2 Flow Rate FiO2 11/07/20 04:00 98.0 78 18 143/72 (95) 98 11/07/20 00:00 98.4 73 18 143/84 (103) 97 11/06/20 21:59 150/89 11/06/20 21:00 Room Air 11/06/20 20:00 98.2 74 18 153/93 (113) 97 11/06/20 16:00 99.0 68 18 135/85 (102) 97 11/06/20 12:00 97.6 68 19 154/95 (114) 95 11/06/20 09:05 137/92 11/06/20 09:00 Room Air 11/06/20 08:00 97.3 68 19 137/92 (107) 98 11/06/20 04:00 97.6 69 18 122/82 (95) 98 11/06/20 00:00 97.9 68 18 139/79 (99) 98 11/05/20 21:35 147/92 11/05/20 21:00 Room Air 11/05/20 20:00 98.6 77 18 133/93 (106) 97 11/05/20 16:00 98.9 79 20 138/98 (111) 99 11/05/20 12:00 98.6 76 20 154/88 (110) 99 11/05/20 09:00 Room Air 11/05/20 08:44 152/90 11/05/20 08:00 98.6 64 18 152/90 (110) 99 Intake and Output 11/06/20 11/07/20 19:00 07:00 Intake Total 600 ml 840 ml Output Total 400 ml Balance 200 ml 840 ml Intake Oral 600 ml 480 ml Other 360 ml Output Urine Total 400 ml # Voids 2 Labs Test 11/05/20 05:45 11/06/20 05:30 White Blood Count 6.6 K/UL (4.8-10.8) 6.3 K/UL (4.8-10.8) Red Blood Count 3.95 M/UL (4.70-6.10) 4.04 M/UL (4.70-6.10) Hemoglobin 11.8 G/DL (14.2-18.0) 12.0 G/DL (14.2-18.0) Hematocrit 34.7 % (42.0-52.0) 35.4 % (42.0-52.0) Mean Corpuscular Volume 88 FL (80-99) 88 FL (80-99) Mean Corpuscular Hemoglobin 29.9 PG (27.0-31.0) 29.6 PG (27.0-31.0) Mean Corpuscular Hemoglobin Concent 34.1 G/DL (32.0-36.0) 33.7 G/DL (32.0-36.0) Red Cell Distribution Width 12.0 % (11.6-14.8) 12.2 % (11.6-14.8) Platelet Count 203 K/UL (150-450) 183 K/UL (150-450) Mean Platelet Volume 8.0 FL (6.5-10.1) 7.6 FL (6.5-10.1) Neutrophils (%) (Auto) 66.7 % (45.0-75.0) 61.9 % (45.0-75.0) Lymphocytes (%) (Auto) 20.2 % (20.0-45.0) 21.1 % (20.0-45.0) Monocytes (%) (Auto) 8.7 % (1.0-10.0) 11.8 % (1.0-10.0) Eosinophils (%) (Auto) 3.9 % (0.0-3.0) 4.6 % (0.0-3.0) Basophils (%) (Auto) 0.5 % (0.0-2.0) 0.6 % (0.0-2.0) Sodium Level 132 MMOL/L (136-145) Potassium Level 4.3 MMOL/L (3.5-5.1) Chloride Level 99 MMOL/L (98-107) Carbon Dioxide Level 26 MMOL/L (21-32) Anion Gap 7 mmol/L (5-15) Blood Urea Nitrogen 28 mg/dL (7-18) Creatinine 2.1 MG/DL (0.55-1.30) Estimat Glomerular Filtration Rate 33.1 mL/min (>60) Glucose Level 89 MG/DL (74-106) Uric Acid 8.0 MG/DL (2.6-7.2) Calcium Level 9.2 MG/DL (8.5-10.1) Phosphorus Level 3.7 MG/DL (2.5-4.9) Magnesium Level 1.8 MG/DL (1.8-2.4) Total Bilirubin 0.5 MG/DL (0.2-1.0) Aspartate Amino Transf (AST/SGOT) 19 U/L (15-37) Alanine Aminotransferase (ALT/SGPT) 40 U/L (12-78) Alkaline Phosphatase 113 U/L (46-116) C-Reactive Protein, Quantitative 0.7 mg/dL (0.00-0.90) Pro-B-Type Natriuretic Peptide 337 pg/mL (0-125) Total Protein 7.0 G/DL (6.4-8.2) Albumin 3.6 G/DL (3.4-5.0) Globulin 3.4 g/dL Albumin/Globulin Ratio 1.1 (1.0-2.7) Free Thyroxine 0.88 NG/DL (0.76-1.46) Free Triiodothyronine 1.0 pg/mL (2.3-4.2) Height (Feet): 5 Height (Inches): 11.00 Weight (Pounds): 155 Objective PE Sp02 EP Interpretation: reviewed, normal General Appearance: no apparent distress, alert, GCS 15, non-toxic Head: normocephalic, atraumatic Eyes: bilateral eye normal inspection, bilateral eye PERRL ENT: hearing grossly normal, normal pharynx, no angioedema Neck: full range of motion, supple/symm/no masses Respiratory: chest non-tender, lungs clear, normal breath sounds Cardiovascular: regular rate, rhythm, no edema Gastrointestinal: normal bowel sounds, soft, non-distended Rectal: deferred Genitourinary: normal inspection, no CVA tenderness Musculoskeletal: back normal Neurologic: alert, motor strength/tone normal Lymphatic: no adenopathy Zev Sorenson MD Nov 07, 2020 06:33
[2020-11-07 07:26] LABS: BASOPHILS % (AUTO) 0.6 % (0.0-2.0); EOSINOPHILS % (AUTO) 2.6 % (0.0-3.0); HEMATOCRIT 32.8 % (42.0-52.0); HEMOGLOBIN 11.3 G/DL (14.2-18.0); LYMPHOCYTES % (AUTO) 10.6 % (20.0-45.0); MEAN CORPUSCULAR VOLUME 87 FL (80-99); MONOCYTES % (AUTO) 9.1 % (1.0-10.0); NEUTROPHILS % (AUTO) 77.1 % (45.0-75.0); PLATELET COUNT 165 K/UL (150-450); RED BLOOD COUNT 3.76 M/UL (4.70-6.10); RED CELL DISTRIBUTION WIDTH 12.1 % (11.6-14.8); WHITE BLOOD COUNT 5.8 K/UL (4.8-10.8)
[2020-11-07 07:31] LABS: PHOSPHORUS 3.7 MG/DL (2.5-4.9)
[2020-11-07 07:34] LABS: ALBUMIN 3.1 G/DL (3.4-5.0); BILIRUBIN,TOTAL 0.4 MG/DL (0.2-1.0); CALCIUM 8.7 MG/DL (8.5-10.1); CREATININE 2.3 MG/DL (0.55-1.30); POTASSIUM 4.7 MMOL/L (3.5-5.1)
--- NOTE | 2020-11-07 07:34 | General Progress Note ---
Subjective ROS Limited/Unobtainable: No Allergies: Coded Allergies: No Known Allergies (Unverified , 11/01/20) Objective Last 24 Hour Vital Signs Date Time Temp Pulse Resp B/P (MAP) Pulse Ox O2 Delivery O2 Flow Rate FiO2 11/07/20 04:00 98.0 78 18 143/72 (95) 98 11/07/20 00:00 98.4 73 18 143/84 (103) 97 11/06/20 21:59 150/89 11/06/20 21:00 Room Air 11/06/20 20:00 98.2 74 18 153/93 (113) 97 11/06/20 16:00 99.0 68 18 135/85 (102) 97 11/06/20 12:00 97.6 68 19 154/95 (114) 95 11/06/20 09:05 137/92 11/06/20 09:00 Room Air 11/06/20 08:00 97.3 68 19 137/92 (107) 98 Intake and Output 11/06/20 11/07/20 19:00 07:00 Intake Total 600 ml 840 ml Output Total 400 ml Balance 200 ml 840 ml Intake Oral 600 ml 480 ml Other 360 ml Output Urine Total 400 ml # Voids 2 Laboratory Tests 11/07/20 06:50: White Blood Count 5.8, Red Blood Count 3.76L, Hemoglobin 11.3L, Hematocrit 32.8L , Mean Corpuscular Volume 87, Mean Corpuscular Hemoglobin 30.0, Mean Corpuscular Hemoglobin Concent 34.4, Red Cell Distribution Width 12.1, Platelet Count 165, Mean Platelet Volume 8.4, Neutrophils (%) (Auto) 77.1H, Lymphocytes (%) (Auto) 10.6L, Monocytes (%) (Auto) 9.1, Eosinophils (%) (Auto) 2.6, Basophils (%) (Auto) 0.6, Sodium Level [Pending], Potassium Level [Pending], Chloride Level [Pending], Carbon Dioxide Level [Pending], Blood Urea Nitrogen [Pending], Creatinine [Pending], Estimat Glomerular Filtration Rate [Pending], Glucose Level [Pending], Uric Acid 7.4H, Calcium Level [Pending], Phosphorus Level 3.7, Magnesium Level 1.7L, Total Bilirubin [Pending], Aspartate Amino Transf (AST/SGOT) [Pending], Alanine Aminotransferase (ALT/SGPT) [Pending], Alkaline Phosphatase [Pending], Total Protein [Pending], Albumin [Pending], Globulin [Pending] Height (Feet): 5 Height (Inches): 11.00 Weight (Pounds): 155 General Appearance: no apparent distress EENT: normal ENT inspection Neck: supple Cardiovascular: normal rate Respiratory/Chest: decreased breath sounds Abdomen: normal bowel sounds, non tender, soft Extremities: non-tender Assessment/Plan Assessment/Plan: abd pain anemia RI constipation doubt pancreatitis RI anemia work up bowel regimen resume diet repeat labs replace folate neg stool ob will need EGD and colonoscopy most likely as out patient Destin Orellana MD Nov 07, 2020 07:34
[2020-11-07 08:00] VITALS: BP 136/88
--- NOTE | 2020-11-07 08:00 | NUR ---
NURSE NOTES: Received patient seated at the edge of the bed, in NAD. Patient is able to communicate through gestures, nodding of the head or writing in a piece of paper. He remains on street clothes, refuses to change to gown when nurse offers it. PIV access LFA G22, saline locked. Bed locked at the lowest position possible, call light within easy reach, side rails upx3 and padded as patient is on seizure precautions. Will continue to monitor patient and follow up with the plan of care.
--- NOTE | 2020-11-07 10:10 | Nephrology Progress Note ---
Assessment/Plan Problem List: (1) Renal failure (ARF), acute on chronic (2) Dehydration (3) Electrolyte imbalance (4) Anemia Assessment Renal failure, most likely acute on chronic Partly dehydration Abdominal pain, questionable pancreatitis Anemia History of hypertension History of CVA/TIA, aphasia Plan November 07: Labs reviewed. Serum sodium 134. Medication list reviewed. Continue current treatment plan. November 06: Labs reviewed. Serum sodium 132. 500 mL Normal saline given. Continue to monitor electrolytes. Continue per consultants. November 05: Labs reviewed. Monitor serum sodium. Adjust blood pressure medication. Continue per consultants. November 04: No chemistry panel done today. Patient taking p.o. Change Protonix to p.o. Folic acid supplement. DC IV. Lisinopril for high blood pressure. Continue per consultants. Previously: Check urine analysis Slow hydration Avoid nephrotoxic's Monitor renal parameters Anemia work-up Per orders Subjective ROS Limited/Unobtainable: No Constitutional: Reports: malaise Objective Objective Last 24 Hour Vital Signs Date Time Temp Pulse Resp B/P (MAP) Pulse Ox O2 Delivery O2 Flow Rate FiO2 11/07/20 08:00 97.9 92 18 136/88 (104) 100 11/07/20 04:00 98.0 78 18 143/72 (95) 98 11/07/20 00:00 98.4 73 18 143/84 (103) 97 11/06/20 21:59 150/89 11/06/20 21:00 Room Air 11/06/20 20:00 98.2 74 18 153/93 (113) 97 11/06/20 16:00 99.0 68 18 135/85 (102) 97 11/06/20 12:00 97.6 68 19 154/95 (114) 95 Intake and Output 11/06/20 11/07/20 19:00 07:00 Intake Total 600 ml 840 ml Output Total 400 ml Balance 200 ml 840 ml Intake Oral 600 ml 480 ml Other 360 ml Output Urine Total 400 ml # Voids 2 Current Medications Medications (Trade) Dose Ordered Sig/Ann Route PRN Reason Start Time Stop Time Status Last Admin Dose Admin Allopurinol (Zyloprim) 100 mg DAILY ORAL 11/04/20 19:15 12/04/20 19:14 11/07/20 10:21 Docusate Sodium (Colace) 100 mg TID ORAL 11/02/20 13:00 12/02/20 08:59 11/07/20 10:20 Enoxaparin Sodium (Lovenox) 40 mg DAILY SUBQ 11/02/20 09:00 01/31/21 08:59 11/07/20 10:24 Folic Acid (Folate) 3 mg DAILY ORAL 11/04/20 10:15 12/04/20 10:14 11/07/20 10:36 Hydromorphone HCl (Dilaudid) 1 mg Q6H PRN IVP Severe Pain (Pain Scale 7-10) 11/02/20 00:00 11/09/20 00:00 11/03/20 09:08 Levetiracetam 100 ml @ 400 mls/hr Q24H IVPB 11/02/20 09:00 01/31/21 08:59 11/07/20 10:22 Levothyroxine Sodium (Synthroid) 200 mcg DAILY@0630 ORAL 11/05/20 06:30 12/05/20 06:29 11/07/20 06:06 Lisinopril (ZestriL) 5 mg Q12HR ORAL 11/05/20 21:00 12/05/20 20:59 11/07/20 10:23 Magnesium Sulfate 100 ml @ 100 mls/hr Q1H IVPB 11/07/20 10:45 11/07/20 12:44 11/07/20 10:36 Ondansetron HCl (Zofran) 4 mg Q4H PRN IVP Nausea & Vomiting 11/02/20 00:00 12/02/20 00:00 Pantoprazole (Protonix) 40 mg EVERY 12 HOURS ORAL 11/04/20 21:00 12/04/20 20:59 11/07/20 10:21 Polyethylene Glycol (Miralax) 17 gm BEDTIME ORAL 11/02/20 21:00 12/02/20 20:59 11/06/20 21:58 Laboratory Tests 11/07/20 06:50: White Blood Count 5.8, Red Blood Count 3.76L, Hemoglobin 11.3L, Hematocrit 32.8L , Mean Corpuscular Volume 87, Mean Corpuscular Hemoglobin 30.0, Mean Corpuscular Hemoglobin Concent 34.4, Red Cell Distribution Width 12.1, Platelet Count 165, Mean Platelet Volume 8.4, Neutrophils (%) (Auto) 77.1H, Lymphocytes (%) (Auto) 10.6L, Monocytes (%) (Auto) 9.1, Eosinophils (%) (Auto) 2.6, Basophils (%) (Auto) 0.6, Sodium Level 134L, Potassium Level 4.7, Chloride Level 102, Carbon Dioxide Level 25, Anion Gap 7, Blood Urea Nitrogen 41H, Creatinine 2.3H, Estimat Glomerular Filtration Rate 29.8, Glucose Level 98, Uric Acid 7.4H, Calcium Level 8.7, Phosphorus Level 3.7, Magnesium Level 1.7L, Total Bilirubin 0.4, Aspartate Amino Transf (AST/SGOT) 61H, Alanine Aminotransferase (ALT/SGPT) 97H, Alkaline Phosphatase 113, Total Protein 6.2L, Albumin 3.1L, Globulin 3.1, Albumin/Globulin Ratio 1.0 Height (Feet): 5 Height (Inches): 11.00 Weight (Pounds): 155 General Appearance: no apparent distress Cardiovascular: tachycardia Respiratory/Chest: decreased breath sounds Abdomen: distended Jeremy Webb MD Nov 07, 2020 10:10
[2020-11-07] MEDS: Docusate 100mg cap ORAL SCH ×3 (10:20→17:26)
[2020-11-07] MEDS: Allopurinol 100mg Tab ORAL SCH (10:21)
[2020-11-07] MEDS: levETIRAcetam 1,000mg/NS100ml 100 ML IVPB SCH (10:22)
[2020-11-07] MEDS: Lisinopril 2.5mg tab ORAL SCH ×2 (10:23→21:02)
[2020-11-07] MEDS: Enoxaparin 40mg Inj SUBQ SCH (10:24)
[2020-11-07 12:00] VITALS: BP 134/90
--- NOTE | 2020-11-07 13:21 | Surgery Progress Note ---
Surgery Progress Note Subjective Additional Comments No acute events resting comfortable. CA 19-9 noted. Labs noted. Onc input. Objective Last 24 Hour Vital Signs Date Time Temp Pulse Resp B/P (MAP) Pulse Ox O2 Delivery O2 Flow Rate FiO2 11/07/20 12:00 97.4 81 18 134/90 (105) 97 11/07/20 10:23 136/88 11/07/20 09:00 Room Air 11/07/20 08:00 97.9 92 18 136/88 (104) 100 11/07/20 04:00 98.0 78 18 143/72 (95) 98 11/07/20 00:00 98.4 73 18 143/84 (103) 97 11/06/20 21:59 150/89 11/06/20 21:00 Room Air 11/06/20 20:00 98.2 74 18 153/93 (113) 97 11/06/20 16:00 99.0 68 18 135/85 (102) 97 I&O Intake and Output 11/06/20 11/07/20 19:00 07:00 Intake Total 600 ml 840 ml Output Total 400 ml Balance 200 ml 840 ml Intake Oral 600 ml 480 ml Other 360 ml Output Urine Total 400 ml # Voids 2 Cardiovascular: RSR Respiratory: clear, decreased breath sounds Abdomen: soft, non-tender, present bowel sounds Extremities: no edema, no tenderness, no cyanosis Laboratory Tests Test 11/07/20 06:50 White Blood Count 5.8 K/UL (4.8-10.8) Red Blood Count 3.76 M/UL (4.70-6.10) L Hemoglobin 11.3 G/DL (14.2-18.0) L Hematocrit 32.8 % (42.0-52.0) L Mean Corpuscular Volume 87 FL (80-99) Mean Corpuscular Hemoglobin 30.0 PG (27.0-31.0) Mean Corpuscular Hemoglobin Concent 34.4 G/DL (32.0-36.0) Red Cell Distribution Width 12.1 % (11.6-14.8) Platelet Count 165 K/UL (150-450) Mean Platelet Volume 8.4 FL (6.5-10.1) Neutrophils (%) (Auto) 77.1 % (45.0-75.0) H Lymphocytes (%) (Auto) 10.6 % (20.0-45.0) L Monocytes (%) (Auto) 9.1 % (1.0-10.0) Eosinophils (%) (Auto) 2.6 % (0.0-3.0) Basophils (%) (Auto) 0.6 % (0.0-2.0) Sodium Level 134 MMOL/L (136-145) L Potassium Level 4.7 MMOL/L (3.5-5.1) Chloride Level 102 MMOL/L (98-107) Carbon Dioxide Level 25 MMOL/L (21-32) Anion Gap 7 mmol/L (5-15) Blood Urea Nitrogen 41 mg/dL (7-18) H Creatinine 2.3 MG/DL (0.55-1.30) H Estimat Glomerular Filtration Rate 29.8 mL/min (>60) Glucose Level 98 MG/DL (74-106) Uric Acid 7.4 MG/DL (2.6-7.2) H Calcium Level 8.7 MG/DL (8.5-10.1) Phosphorus Level 3.7 MG/DL (2.5-4.9) Magnesium Level 1.7 MG/DL (1.8-2.4) L Total Bilirubin 0.4 MG/DL (0.2-1.0) Aspartate Amino Transf (AST/SGOT) 61 U/L (15-37) H Alanine Aminotransferase (ALT/SGPT) 97 U/L (12-78) H Alkaline Phosphatase 113 U/L (46-116) Total Protein 6.2 G/DL (6.4-8.2) L Albumin 3.1 G/DL (3.4-5.0) L Globulin 3.1 g/dL Albumin/Globulin Ratio 1.0 (1.0-2.7) Plan Problems: (1) Renal insufficiency (2) Pancreatitis (3) Abdominal pain Assessment & Plan: 55M abd pain labs noted ct reviewed exam benign no acute surgical intervention bowel regimen gi input will follow with exam and recs Diet as tolerated overall improving thank you ABDOMEN: Liver: Unremarkable. No mass. Gallbladder and bile ducts: Unremarkable. No calcified stones. No ductal dilation. Pancreas: Unremarkable. No mass. No ductal dilation. Spleen: Unremarkable. No splenomegaly. Adrenals: Unremarkable. No mass. Kidneys and ureters: Small low-attenuation structures within the right kidney, some too small to characterize and measuring less than 7 mm, largest seen within the mid lower pole measuring 1.8 x 1.7 cm compatible with a simple cyst. The smaller structures are statistically consistent with cyst. Normal left kidney. Stomach and bowel: Increased fecal debris within the colon suggestive of constipation. No obstruction. No mucosal thickening. PELVIS: Appendix: Normal appendix. Bladder: Unremarkable. No mass. Reproductive: Unremarkable as visualized. ABDOMEN and PELVIS: Intraperitoneal space: Unremarkable. No free air. No significant fluid collection. Bones/joints: Mild degenerative disease of the spine. No acute fracture. No dislocation. Soft tissues: Small bilateral fat-containing inguinal hernias. Vasculature: Unremarkable. No abdominal aortic aneurysm. Lymph nodes: Unremarkable. No enlarged lymph nodes. IMPRESSION: 1. Constipation. No acute appendicitis or bowel obstruction. 2. Nonspecific small bilateral renal cysts. If indicated, this can be further confirmed with ultrasound of the kidneys the nonacute setting. DAILY ESTIMATED NEEDS: Needs based on cardiac, renal 71kg 25-30 kcals/kg 0179-7439 total kcals 1-1.5 g protein/kg 71-107 g total protein 25-30 mL/kg 1741-0244 total fluid mLs NUTRITION DIAGNOSIS: Self feeding difficulty r/t medical history, L side weakness, h/o craniotomy as evidenced by pt requires 1:1 feeds with all meals, CURRENT DIET: regular PO DIET RECOMMENDATIONS: Low Na diet/ texture per TAXI DANCER ADDITIONAL RECOMMENDATIONS: 1) rec TAXI DANCER eval for appropriate texture 2) Monitor renal status/ lytes, need for renal diet 3) rec q8 bedside BG checks 4) Calibrated bedscale wts 5) Add Glucerna 1 tetra qdaily (250 kcal/10g pro) Sandro Sunshine Nov 07, 2020 13:21
[2020-11-07 16:00] VITALS: BP 144/98
--- NOTE | 2020-11-07 19:48 | NUR ---
NURSE HAND-OFF: Important Events on Shift:[] Patient Status: [] Diet: [regular] Pending Orders: [cbc, cmp] Pending Results/Labs:[] Pending MD notification:[] Latest Vital Signs: Temperature 98.4 , Pulse 72 , B/P 144 /98 , Respiratory Rate 18 , O2 SAT 96 , Room Air, O2 Flow Rate . Vital Sign Comment: [] Latest Foley Fall Score: 60 Fall Risk: High Risk Safety Measures: Call light Within Reach, Bed Alarm Zone 1, Side Rails Side Rails x3, Bed position Low and Locked. Fall Precautions: Yellow Socks Patient Fall Education Report given to [HEATHER Benito].
[2020-11-07 20:00] VITALS: BP 133/92
[2020-11-07] MEDS: Miralax 17gm pkt ORAL SCH (21:02)
[2020-11-08] VITALS: BP 140/87
[2020-11-08 04:00] VITALS: BP 137/91
--- NOTE | 2020-11-08 06:34 | General Progress Note ---
Subjective ROS Limited/Unobtainable: Yes Allergies: Coded Allergies: No Known Allergies (Unverified , 11/01/20) Objective Last 24 Hour Vital Signs Date Time Temp Pulse Resp B/P (MAP) Pulse Ox O2 Delivery O2 Flow Rate FiO2 11/08/20 04:00 97.2 87 18 137/91 (106) 95 11/08/20 00:00 97.5 61 17 140/87 (104) 98 11/07/20 21:02 133/92 11/07/20 21:00 Room Air 11/07/20 20:00 97.6 62 18 133/92 (106) 100 11/07/20 16:00 98.4 72 18 144/98 (113) 96 11/07/20 12:00 97.4 81 18 134/90 (105) 97 11/07/20 10:23 136/88 11/07/20 09:00 Room Air 11/07/20 08:00 97.9 92 18 136/88 (104) 100 Intake and Output 11/07/20 11/08/20 19:00 07:00 Intake Total 780 ml 240 ml Output Total 600 ml 600 ml Balance 180 ml -360 ml Intake Oral 480 ml 240 ml IV Total 300 ml Output Urine Total 600 ml 600 ml # Voids 3 # Bowel Movements 1 Laboratory Tests 11/07/20 06:50: White Blood Count 5.8, Red Blood Count 3.76L, Hemoglobin 11.3L, Hematocrit 32.8L , Mean Corpuscular Volume 87, Mean Corpuscular Hemoglobin 30.0, Mean Corpuscular Hemoglobin Concent 34.4, Red Cell Distribution Width 12.1, Platelet Count 165, Mean Platelet Volume 8.4, Neutrophils (%) (Auto) 77.1H, Lymphocytes (%) (Auto) 10.6L, Monocytes (%) (Auto) 9.1, Eosinophils (%) (Auto) 2.6, Basophils (%) (Auto) 0.6, Sodium Level 134L, Potassium Level 4.7, Chloride Level 102, Carbon Dioxide Level 25, Anion Gap 7, Blood Urea Nitrogen 41H, Creatinine 2.3H, Estimat Glomerular Filtration Rate 29.8, Glucose Level 98, Uric Acid 7.4H, Calcium Level 8.7, Phosphorus Level 3.7, Magnesium Level 1.7L, Total Bilirubin 0.4, Aspartate Amino Transf (AST/SGOT) 61H, Alanine Aminotransferase (ALT/SGPT) 97H, Alkaline Phosphatase 113, Total Protein 6.2L, Albumin 3.1L, Globulin 3.1, Albumin/Globulin Ratio 1.0 Height (Feet): 5 Height (Inches): 11.00 Weight (Pounds): 155 General Appearance: no apparent distress EENT: normal ENT inspection Neck: supple Cardiovascular: normal rate Respiratory/Chest: decreased breath sounds Abdomen: normal bowel sounds, non tender, soft Extremities: non-tender Assessment/Plan Assessment/Plan: abd pain anemia RI constipation doubt pancreatitis RI anemia work up bowel regimen resume diet repeat labs replace folate neg stool ob will need EGD and colonoscopy most likely as out patient Destin Orellana MD Nov 08, 2020 06:33
--- NOTE | 2020-11-08 06:36 | Hematology/Onc Progress Note ---
Assessment/Plan Assessment/Plan Assessment / Recs # Anemia of chronic disease --> hgb 10.8->10.9-->11.7-->11.3 --> no hemolysis is noted --> anemia panel order as needed --> smear has been reviewed # Abdominal pain r/o pancreatitis --> IVfs --> per gi, surg --> imaging noted -> lipase is high # Renal insufficiency --> ivfs --> per renal # Pancreatitis -> supportive care # Dvt ppx lovenox sq Appreciate consultation and dw RN Subjective Allergies: Coded Allergies: No Known Allergies (Unverified , 11/01/20) All Systems: reviewed and negative except above Subjective 2/3 meds reviewed, labs noted, no bleeding, feeling comfortable 11/04 labs are pending, meds noted, no bleeding, no complaints 11/05 labs noted, no bleeding, meds reviewed, no major events 11/07 labs reviewed, aphasic, meds noted, no bleeding, seen by renal 11/08 labs noted, aphasic, no bleeding, meds noted, no night sweats Objective Objective Current Medications Medications (Trade) Dose Ordered Sig/Ann Route PRN Reason Start Time Stop Time Status Last Admin Dose Admin Allopurinol (Zyloprim) 100 mg DAILY ORAL 11/04/20 19:15 12/04/20 19:14 11/07/20 10:21 Docusate Sodium (Colace) 100 mg TID ORAL 11/02/20 13:00 12/02/20 08:59 11/07/20 17:26 Enoxaparin Sodium (Lovenox) 40 mg DAILY SUBQ 11/02/20 09:00 01/31/21 08:59 11/07/20 10:24 Folic Acid (Folate) 3 mg DAILY ORAL 11/04/20 10:15 12/04/20 10:14 11/07/20 10:36 Hydromorphone HCl (Dilaudid) 1 mg Q6H PRN IVP Severe Pain (Pain Scale 7-10) 11/02/20 00:00 11/09/20 00:00 11/03/20 09:08 Levetiracetam 100 ml @ 400 mls/hr Q24H IVPB 11/02/20 09:00 01/31/21 08:59 11/07/20 10:22 Levothyroxine Sodium (Synthroid) 200 mcg DAILY@0630 ORAL 11/05/20 06:30 12/05/20 06:29 11/08/20 05:34 Lisinopril (ZestriL) 5 mg Q12HR ORAL 11/05/20 21:00 12/05/20 20:59 11/07/20 21:02 Ondansetron HCl (Zofran) 4 mg Q4H PRN IVP Nausea & Vomiting 11/02/20 00:00 12/02/20 00:00 Pantoprazole (Protonix) 40 mg EVERY 12 HOURS ORAL 11/04/20 21:00 12/04/20 20:59 11/07/20 21:02 Polyethylene Glycol (Miralax) 17 gm BEDTIME ORAL 11/02/20 21:00 12/02/20 20:59 11/07/20 21:02 Last 24 Hour Vital Signs Date Time Temp Pulse Resp B/P (MAP) Pulse Ox O2 Delivery O2 Flow Rate FiO2 11/08/20 04:00 97.2 87 18 137/91 (106) 95 11/08/20 00:00 97.5 61 17 140/87 (104) 98 11/07/20 21:02 133/92 11/07/20 21:00 Room Air 11/07/20 20:00 97.6 62 18 133/92 (106) 100 11/07/20 16:00 98.4 72 18 144/98 (113) 96 11/07/20 12:00 97.4 81 18 134/90 (105) 97 11/07/20 10:23 136/88 11/07/20 09:00 Room Air 11/07/20 08:00 97.9 92 18 136/88 (104) 100 11/07/20 04:00 98.0 78 18 143/72 (95) 98 11/07/20 00:00 98.4 73 18 143/84 (103) 97 11/06/20 21:59 150/89 11/06/20 21:00 Room Air 11/06/20 20:00 98.2 74 18 153/93 (113) 97 11/06/20 16:00 99.0 68 18 135/85 (102) 97 11/06/20 12:00 97.6 68 19 154/95 (114) 95 11/06/20 09:05 137/92 11/06/20 09:00 Room Air 11/06/20 08:00 97.3 68 19 137/92 (107) 98 Intake and Output 11/07/20 11/08/20 19:00 07:00 Intake Total 780 ml 240 ml Output Total 600 ml 600 ml Balance 180 ml -360 ml Intake Oral 480 ml 240 ml IV Total 300 ml Output Urine Total 600 ml 600 ml # Voids 3 # Bowel Movements 1 Labs Test 11/06/20 05:30 11/07/20 06:50 White Blood Count 6.3 K/UL (4.8-10.8) 5.8 K/UL (4.8-10.8) Red Blood Count 4.04 M/UL (4.70-6.10) 3.76 M/UL (4.70-6.10) Hemoglobin 12.0 G/DL (14.2-18.0) 11.3 G/DL (14.2-18.0) Hematocrit 35.4 % (42.0-52.0) 32.8 % (42.0-52.0) Mean Corpuscular Volume 88 FL (80-99) 87 FL (80-99) Mean Corpuscular Hemoglobin 29.6 PG (27.0-31.0) 30.0 PG (27.0-31.0) Mean Corpuscular Hemoglobin Concent 33.7 G/DL (32.0-36.0) 34.4 G/DL (32.0-36.0) Red Cell Distribution Width 12.2 % (11.6-14.8) 12.1 % (11.6-14.8) Platelet Count 183 K/UL (150-450) 165 K/UL (150-450) Mean Platelet Volume 7.6 FL (6.5-10.1) 8.4 FL (6.5-10.1) Neutrophils (%) (Auto) 61.9 % (45.0-75.0) 77.1 % (45.0-75.0) Lymphocytes (%) (Auto) 21.1 % (20.0-45.0) 10.6 % (20.0-45.0) Monocytes (%) (Auto) 11.8 % (1.0-10.0) 9.1 % (1.0-10.0) Eosinophils (%) (Auto) 4.6 % (0.0-3.0) 2.6 % (0.0-3.0) Basophils (%) (Auto) 0.6 % (0.0-2.0) 0.6 % (0.0-2.0) Sodium Level 134 MMOL/L (136-145) Potassium Level 4.7 MMOL/L (3.5-5.1) Chloride Level 102 MMOL/L (98-107) Carbon Dioxide Level 25 MMOL/L (21-32) Anion Gap 7 mmol/L (5-15) Blood Urea Nitrogen 41 mg/dL (7-18) Creatinine 2.3 MG/DL (0.55-1.30) Estimat Glomerular Filtration Rate 29.8 mL/min (>60) Glucose Level 98 MG/DL (74-106) Uric Acid 7.4 MG/DL (2.6-7.2) Calcium Level 8.7 MG/DL (8.5-10.1) Phosphorus Level 3.7 MG/DL (2.5-4.9) Magnesium Level 1.7 MG/DL (1.8-2.4) Total Bilirubin 0.4 MG/DL (0.2-1.0) Aspartate Amino Transf (AST/SGOT) 61 U/L (15-37) Alanine Aminotransferase (ALT/SGPT) 97 U/L (12-78) Alkaline Phosphatase 113 U/L (46-116) Total Protein 6.2 G/DL (6.4-8.2) Albumin 3.1 G/DL (3.4-5.0) Globulin 3.1 g/dL Albumin/Globulin Ratio 1.0 (1.0-2.7) Height (Feet): 5 Height (Inches): 11.00 Weight (Pounds): 155 Objective PE Sp02 EP Interpretation: reviewed, normal General Appearance: no apparent distress, alert, GCS 15, non-toxic Head: normocephalic, atraumatic Eyes: bilateral eye normal inspection, bilateral eye PERRL ENT: hearing grossly normal, normal pharynx, no angioedema Neck: full range of motion, supple/symm/no masses Respiratory: chest non-tender, lungs clear, normal breath sounds Cardiovascular: regular rate, rhythm, no edema Gastrointestinal: normal bowel sounds, soft, non-distended Rectal: deferred Genitourinary: normal inspection, no CVA tenderness Musculoskeletal: back normal Neurologic: alert, motor strength/tone normal Lymphatic: no adenopathy Zev Sorenson MD Nov 08, 2020 06:36
--- NOTE | 2020-11-08 07:38 | NUR ---
NURSE NOTES: Patient sitting up at edge of bed, awake and alert, happy, watching television, on room air, bed in lowest position, wheels locked, side rails up x 2, call light within reach, in no apparent distress.
[2020-11-08 08:00] VITALS: BP 149/90
--- NOTE | 2020-11-08 08:14 | Discharge Summary ---
DATE OF ADMISSION: 11/01/2020 This is one of several admissions to [facility] of this 55-year-old patient because of acute pancreatitis. HISTORY OF PRESENT ILLNESS: Details of the event and circumstances that led the patient to be admitted to this medical unit can be found in the H and P. In brief, the patient is a resident of an extended care facility, where he has been in stable condition for the last several years. He has a long list of chronic medical syndrome that will be detailed in the following paragraph, but has been stable on his current medication. On the day of admission, he developed severe abdominal pain that was constant, not associated with nausea or vomiting, but the pain became intolerable. He did not respond to standard analgesic medication living in the shelter. He was transferred to [facility], where he was found to have elevated amylase and lipase to 500 and the patient was admitted. HOSPITAL COURSE: Upon admission, the patient underwent clinical, biological, and imaging studies. Physical examination revealed the patient's blood pressure was elevated and insufficiently controlled. His lungs were clear. His heart had no tachycardia. His abdomen was soft, but tenderness in the right upper quadrant in the periumbilical area, and hypoactive bowel sounds. Extremities were warm without cyanosis, clubbing, or edema. His laboratory test showed the patient had no leukocytosis. His H and H was stable, and so was his chemistry. However, his renal function revealed the patient had an BUN of 37, creatinine is of 2.3, which was higher than the previous renal function he had upon discharge several months ago in this facility. Multiple consultants were called to assist in the management of this case. Nephrology travel consultant was called. Gastroenterology travel consultant was called and later food court team member and general surgeon. His pain resolved within 24 to 36 hours. His renal function slightly improved. His BUN upon discharge is 28 and 2.1 respectively. He is hyponatremic, but the rest of the potassium, chloride, and CO2 are normal. At the time of his discharge, he is awake, alert, afebrile, and hemodynamically stable. The patient's list of chronic medical conditions include status post CVA and he has right hemiplegia and complete aphasia. He underwent craniotomy and cranioplasty. He has high blood pressure, hyperlipidemia, history of gout, hypothyroidism that requires a high dose of levothyroxine for the management of this endocrine problem. His blood pressure medication currently is lisinopril 5 mg daily, pantoprazole 40 mg daily, allopurinol 100 mg daily, folic acid 3 mg daily. He has multiple medications for motility disorder and he is on enoxaparin 40 mg subcutaneously daily. He is discharged back to the [facility] care facility, where he will be seen as of 24 hours after discharge. Elias Nolasco M.D. DR: MICHAEL JOB#: [id number] CC:
[2020-11-08 08:49] LABS: BASOPHILS % (AUTO) 0.8 % (0.0-2.0); EOSINOPHILS % (AUTO) 4.4 % (0.0-3.0); HEMATOCRIT 37.5 % (42.0-52.0); HEMOGLOBIN 12.7 G/DL (14.2-18.0); LYMPHOCYTES % (AUTO) 17.7 % (20.0-45.0); MEAN CORPUSCULAR VOLUME 89 FL (80-99); MONOCYTES % (AUTO) 7.8 % (1.0-10.0); NEUTROPHILS % (AUTO) 69.2 % (45.0-75.0); PLATELET COUNT 195 K/UL (150-450); RED BLOOD COUNT 4.22 M/UL (4.70-6.10); RED CELL DISTRIBUTION WIDTH 12.3 % (11.6-14.8); WHITE BLOOD COUNT 5.7 K/UL (4.8-10.8)
[2020-11-08] MEDS: Docusate 100mg cap ORAL SCH (09:15)
[2020-11-08] MEDS: Allopurinol 100mg Tab ORAL SCH (09:16)
[2020-11-08] MEDS: Lisinopril 2.5mg tab ORAL SCH (09:16)
[2020-11-08] MEDS: Enoxaparin 40mg Inj SUBQ SCH (09:16)
[2020-11-08] MEDS: levETIRAcetam 1,000mg/NS100ml 100 ML IVPB SCH (09:17)
[2020-11-08 09:37] LABS: ALBUMIN 3.8 G/DL (3.4-5.0); ALBUMIN/GLOBULIN RATIO 1.1 (1.0-2.7); BILIRUBIN,TOTAL 0.3 MG/DL (0.2-1.0); CALCIUM 9.3 MG/DL (8.5-10.1); CREATININE 2.2 MG/DL (0.55-1.30); POTASSIUM 4.8 MMOL/L (3.5-5.1)
--- NOTE | 2020-11-08 10:22 | Nephrology Progress Note ---
Assessment/Plan Problem List: (1) Renal failure (ARF), acute on chronic (2) Dehydration (3) Electrolyte imbalance (4) Anemia Assessment Renal failure, most likely acute on chronic Partly dehydration Abdominal pain, questionable pancreatitis Anemia History of hypertension History of CVA/TIA, aphasia Plan November 08: Labs reviewed. Serum sodium 131. Continue to observe and monitor electrolytes. Continue care consultants. Serum creatinine remains stable Mid 2s. November 07: Labs reviewed. Serum sodium 134. Medication list reviewed. Continue current treatment plan. November 06: Labs reviewed. Serum sodium 132. 500 mL Normal saline given. Continue to monitor electrolytes. Continue per consultants. November 05: Labs reviewed. Monitor serum sodium. Adjust blood pressure medication. Continue per consultants. November 04: No chemistry panel done today. Patient taking p.o. Change Protonix to p.o. Folic acid supplement. DC IV. Lisinopril for high blood pressure. Continue per consultants. Previously: Check urine analysis Slow hydration Avoid nephrotoxic's Monitor renal parameters Anemia work-up Per orders Subjective ROS Limited/Unobtainable: No Constitutional: Reports: malaise Objective Objective Last 24 Hour Vital Signs Date Time Temp Pulse Resp B/P (MAP) Pulse Ox O2 Delivery O2 Flow Rate FiO2 11/08/20 09:16 149/90 11/08/20 08:00 96.5 62 18 149/90 (109) 99 11/08/20 04:00 97.2 87 18 137/91 (106) 95 11/08/20 00:00 97.5 61 17 140/87 (104) 98 11/07/20 21:02 133/92 11/07/20 21:00 Room Air 11/07/20 20:00 97.6 62 18 133/92 (106) 100 11/07/20 16:00 98.4 72 18 144/98 (113) 96 11/07/20 12:00 97.4 81 18 134/90 (105) 97 11/07/20 10:23 136/88 Intake and Output 11/07/20 11/08/20 19:00 07:00 Intake Total 780 ml 240 ml Output Total 600 ml 600 ml Balance 180 ml -360 ml Intake Oral 480 ml 240 ml IV Total 300 ml Output Urine Total 600 ml 600 ml # Voids 3 # Bowel Movements 1 Current Medications Medications (Trade) Dose Ordered Sig/Ann Route PRN Reason Start Time Stop Time Status Last Admin Dose Admin Allopurinol (Zyloprim) 100 mg DAILY ORAL 11/04/20 19:15 12/04/20 19:14 11/08/20 09:16 Docusate Sodium (Colace) 100 mg TID ORAL 11/02/20 13:00 12/02/20 08:59 11/08/20 09:15 Enoxaparin Sodium (Lovenox) 40 mg DAILY SUBQ 11/02/20 09:00 01/31/21 08:59 11/08/20 09:16 Folic Acid (Folate) 3 mg DAILY ORAL 11/04/20 10:15 12/04/20 10:14 11/08/20 09:15 Hydromorphone HCl (Dilaudid) 1 mg Q6H PRN IVP Severe Pain (Pain Scale 7-10) 11/02/20 00:00 11/09/20 00:00 11/03/20 09:08 Levetiracetam 100 ml @ 400 mls/hr Q24H IVPB 11/02/20 09:00 01/31/21 08:59 11/08/20 09:17 Levothyroxine Sodium (Synthroid) 200 mcg DAILY@0630 ORAL 11/05/20 06:30 12/05/20 06:29 11/08/20 05:34 Lisinopril (ZestriL) 5 mg Q12HR ORAL 11/05/20 21:00 12/05/20 20:59 11/08/20 09:16 Ondansetron HCl (Zofran) 4 mg Q4H PRN IVP Nausea & Vomiting 11/02/20 00:00 12/02/20 00:00 Pantoprazole (Protonix) 40 mg EVERY 12 HOURS ORAL 11/04/20 21:00 12/04/20 20:59 11/08/20 09:15 Polyethylene Glycol (Miralax) 17 gm BEDTIME ORAL 11/02/20 21:00 12/02/20 20:59 11/07/20 21:02 Laboratory Tests 11/08/20 08:23: White Blood Count 5.7, Red Blood Count 4.22L, Hemoglobin 12.7L, Hematocrit 37.5L , Mean Corpuscular Volume 89, Mean Corpuscular Hemoglobin 30.2, Mean Corpuscular Hemoglobin Concent 34.0, Red Cell Distribution Width 12.3, Platelet Count 195, M aashish Platelet Volume 7.7, Neutrophils (%) (Auto) 69.2, Lymphocytes (%) (Auto) 17.7L, Monocytes (%) (Auto) 7.8, Eosinophils (%) (Auto) 4.4H, Basophils (%) (Auto) 0.8, Sodium Level 131L, Potassium Level 4.8, Chloride Level 97L, Carbon Dioxide Level 26, Anion Gap 8, Blood Urea Nitrogen 34H, Creatinine 2.2H, Estimat Glomerular Filtration Rate 31.3, Glucose Level 94, Calcium Level 9.3, Total Bilirubin 0.3, Aspartate Amino Transf (AST/SGOT) 56H, Alanine Aminotransferase (ALT/SGPT) 121H, Alkaline Phosphatase 136H, Total Protein 7.4, Albumin 3.8, Globulin 3.6, Albumin/Globulin Ratio 1.1 Height (Feet): 5 Height (Inches): 11.00 Weight (Pounds): 155 General Appearance: no apparent distress, lethargic Cardiovascular: normal rate Respiratory/Chest: decreased breath sounds Abdomen: distended Jeremy Webb MD Nov 08, 2020 10:22
--- NOTE | 2020-11-08 11:15 | NUR ---
-*DISCHARGE PLANNED*-* PATIENT HAS BEEN ACCEPTED AND WILL BE DISCHARGED BACK TO: [facility] P: [phone] FOR NURSE TO NURSE REPORT ROOM# 9.A [facility] TRANSPORTATION SET FOR 12PM S/W JEROME [id number]. S/W PATIENTS FAMILY WHO IS IN AGREEMENT WITH DISCHARGE PLAN.
[2020-11-08 12:00] VITALS: BP 137/77
--- NOTE | 2020-11-08 12:44 | NUR ---
NURSE NOTES: Gave report to Tawanna at [facility].
--- NOTE | 2020-11-08 18:18 | Surgery Progress Note ---
Surgery Progress Note Subjective Additional Comments Patient seen and examined bedside. No acute events. Doing better. Labs noted and stable. Continue with dressings. Okay to discharge from [facility]. Of note this is a late entry as patient was seen earlier today notes right now Objective Last 24 Hour Vital Signs Date Time Temp Pulse Resp B/P (MAP) Pulse Ox O2 Delivery O2 Flow Rate FiO2 11/08/20 12:00 97.8 79 18 137/77 (97) 96 11/08/20 09:16 149/90 11/08/20 09:00 Room Air 11/08/20 08:00 96.5 62 18 149/90 (109) 99 11/08/20 04:00 97.2 87 18 137/91 (106) 95 11/08/20 00:00 97.5 61 17 140/87 (104) 98 11/07/20 21:02 133/92 11/07/20 21:00 Room Air 11/07/20 20:00 97.6 62 18 133/92 (106) 100 I&O Intake and Output 11/07/20 11/08/20 19:00 07:00 Intake Total 780 ml 240 ml Output Total 600 ml 600 ml Balance 180 ml -360 ml Intake Oral 480 ml 240 ml IV Total 300 ml Output Urine Total 600 ml 600 ml # Voids 3 # Bowel Movements 1 Cardiovascular: RSR Respiratory: decreased breath sounds Abdomen: soft, non-tender, present bowel sounds, non-distended Extremities: no edema, no tenderness, no cyanosis Laboratory Tests Test 11/08/20 08:23 White Blood Count 5.7 K/UL (4.8-10.8) Red Blood Count 4.22 M/UL (4.70-6.10) L Hemoglobin 12.7 G/DL (14.2-18.0) L Hematocrit 37.5 % (42.0-52.0) L Mean Corpuscular Volume 89 FL (80-99) Mean Corpuscular Hemoglobin 30.2 PG (27.0-31.0) Mean Corpuscular Hemoglobin Concent 34.0 G/DL (32.0-36.0) Red Cell Distribution Width 12.3 % (11.6-14.8) Platelet Count 195 K/UL (150-450) Mean Platelet Volume 7.7 FL (6.5-10.1) Neutrophils (%) (Auto) 69.2 % (45.0-75.0) Lymphocytes (%) (Auto) 17.7 % (20.0-45.0) L Monocytes (%) (Auto) 7.8 % (1.0-10.0) Eosinophils (%) (Auto) 4.4 % (0.0-3.0) H Basophils (%) (Auto) 0.8 % (0.0-2.0) Sodium Level 131 MMOL/L (136-145) L Potassium Level 4.8 MMOL/L (3.5-5.1) Chloride Level 97 MMOL/L (98-107) L Carbon Dioxide Level 26 MMOL/L (21-32) Anion Gap 8 mmol/L (5-15) Blood Urea Nitrogen 34 mg/dL (7-18) H Creatinine 2.2 MG/DL (0.55-1.30) H Estimat Glomerular Filtration Rate 31.3 mL/min (>60) Glucose Level 94 MG/DL (74-106) Calcium Level 9.3 MG/DL (8.5-10.1) Total Bilirubin 0.3 MG/DL (0.2-1.0) Aspartate Amino Transf (AST/SGOT) 56 U/L (15-37) H Alanine Aminotransferase (ALT/SGPT) 121 U/L (12-78) H Alkaline Phosphatase 136 U/L (46-116) H Total Protein 7.4 G/DL (6.4-8.2) Albumin 3.8 G/DL (3.4-5.0) Globulin 3.6 g/dL Albumin/Globulin Ratio 1.1 (1.0-2.7) Plan Problems: (1) Renal insufficiency (2) Pancreatitis (3) Abdominal pain Assessment & Plan: 55M abd pain labs noted ct reviewed exam benign no acute surgical intervention bowel regimen gi input will follow with exam and recs Diet as tolerated overall improving thank you ABDOMEN: Liver: Unremarkable. No mass. Gallbladder and bile ducts: Unremarkable. No calcified stones. No ductal dilation. Pancreas: Unremarkable. No mass. No ductal dilation. Spleen: Unremarkable. No splenomegaly. Adrenals: Unremarkable. No mass. Kidneys and ureters: Small low-attenuation structures within the right kidney, some too small to characterize and measuring less than 7 mm, largest seen within the mid lower pole measuring 1.8 x 1.7 cm compatible with a simple cyst. The smaller structures are statistically consistent with cyst. Normal left kidney. Stomach and bowel: Increased fecal debris within the colon suggestive of constipation. No obstruction. No mucosal thickening. PELVIS: Appendix: Normal appendix. Bladder: Unremarkable. No mass. Reproductive: Unremarkable as visualized. ABDOMEN and PELVIS: Intraperitoneal space: Unremarkable. No free air. No significant fluid collection. Bones/joints: Mild degenerative disease of the spine. No acute fracture. No dislocation. Soft tissues: Small bilateral fat-containing inguinal hernias. Vasculature: Unremarkable. No abdominal aortic aneurysm. Lymph nodes: Unremarkable. No enlarged lymph nodes. IMPRESSION: 1. Constipation. No acute appendicitis or bowel obstruction. 2. Nonspecific small bilateral renal cysts. If indicated, this can be further confirmed with ultrasound of the kidneys the nonacute setting. DAILY ESTIMATED NEEDS: Needs based on cardiac, renal 71kg 25-30 kcals/kg 6557-7094 total kcals 1-1.5 g protein/kg 71-107 g total protein 25-30 mL/kg 5473-7780 total fluid mLs NUTRITION DIAGNOSIS: Self feeding difficulty r/t medical history, L side weakness, h/o craniotomy as evidenced by pt requires 1:1 feeds with all meals, CURRENT DIET: regular PO DIET RECOMMENDATIONS: Low Na diet/ texture per [facility] ADDITIONAL RECOMMENDATIONS: 1) rec [facility] eval for appropriate texture 2) Monitor renal status/ lytes, need for renal diet 3) rec q8 bedside BG checks 4) Calibrated bedscale wts 5) Add Glucerna 1 tetra qdaily (250 kcal/10g pro) Sandro Sunshine Nov 08, 2020 18:18
== END 2020-11-08 13:00 | DRG 282 ==
LOC: EDBD 16:39 → EMR 17:26 → 4E 21:05 → EDBEDREQ 21:17 → 4E 11-05 06:23
DX: K85.90 Acute pancreatitis without necrosis or infection, unspecified (principal); N17.9 Acute kidney failure, unspecified; I12.9 Hypertensive chronic kidney disease with stage 1 through stage 4 chronic kidney disease, or unspecified chronic kidney disease; N18.9 Chronic kidney disease, unspecified; E86.0 Dehydration; I69.320 Aphasia following cerebral infarction; I69.351 Hemiplegia and hemiparesis following cerebral infarction affecting right dominant side; E78.5 Hyperlipidemia, unspecified; M10.9 Gout, unspecified; D63.8 Anemia in other chronic diseases classified elsewhere; K21.9 Gastro-esophageal reflux disease without esophagitis; K59.00 Constipation, unspecified; N28.1 Cyst of kidney, acquired; E87.8 Other disorders of electrolyte and fluid balance, not elsewhere classified
CPT/HCPCS: 36415; 74176; 80048; 80053; 80061; 80076; 81001; 82150; 82270; 82306; 82378; 82550; 82607; 82728; 82746; 82977; 83036; 83540; 83550; 83615; 83690; 83735; 83880; 84100; 84300; 84439; 84443; 84481; 84550; 85025; 85651; 86140; 87081; 96361; 96374; 96375; 99285